=== PATIENT | male | born 1955 | race Caucasian/White ===

== ENCOUNTER 2017-01-03 05:18 | Day surgery (SDC) | payer BC ==
[2016-12-30 10:49] VITALS: BMI 23.0
--- NOTE | 2016-12-30 11:30 | PAT Medication Instructions ---
Service Date Dec 30, 2016. Current Home Medication List Amoxicillin (Amoxil), 2,000 MG PO PRN Metoprolol Tartrate (Lopressor) (Lopressor), 50 MG PO BID Warfarin Sodium (Coumadin), 2 MG PO QPM Medication Instructions For Your Scheduled Surgery Warfarin Sodium (Coumadin), 2 MG PO QPM (hold Coumadin 5 days prior to surgery per Coumadin clinic; bridging with Lovenox (last dose of Lovenox pre op will be in the AM of 01/02/17) Amoxicillin (Amoxil), 2,000 MG PO PRN (take prior to dental procedures) - Take the following medications the morning of surgery with a sip of water: Metoprolol Tartrate (Lopressor) (Lopressor), 50 MG PO BID - Take the following medications as scheduled the night before surgery: Metoprolol Tartrate (Lopressor) (Lopressor), 50 MG PO BID If you have any questions please call us at [phone] or [phone] ( Sara) or [phone]
[~2017-01-03] VITALS: Ht 180.3 cm; Wt 76.1 kg
[~2017-01-03 05:18] MED LIST: AMOX500C3 PO; METO50TA16 PO; WARF2TAB PO
[2017-01-03 05:41] VITALS: BP 139/83; PULSE 57; TEMP 37; O2SAT 100; Ht 180.3 cm; Wt 76.1 kg
[2017-01-03] MEDS ORDERED: CEFAZOLIN 2000 MG/60 ML D5W IV SCH (06:00)
[2017-01-03] MEDS ORDERED: LACTATED RINGER'S 1000ML 1,000 ML IV SCH ×2 (06:00)
[2017-01-03 06:03] LABS: PROTHROMBIN TIME (PATIENT) 10.6 SECONDS (9.0-12.0)
[2017-01-03] MEDS ORDERED: LIDOCAINE HCL 2% 2 ML VIAL (20MG/ML) ONE (06:29)
[2017-01-03] MEDS ORDERED: PROPOFOL IV EMULSION 10 MG/ML 20 ML VIAL IV ONE ×2 (06:29→07:26)
[2017-01-03] MEDS ORDERED: NEOSTIGMINE METHYLSULFATE 5 MG/5 ML SYR ONE (06:29)
[2017-01-03] MEDS ORDERED: ONDANSETRON INJ 2 MG/ML 2 ML VIAL ONE (06:29)
[2017-01-03] MEDS ORDERED: ROCURONIUM BROMIDE 10 MG/ML 5 ML VIAL ONE (06:29)
[2017-01-03] MEDS ORDERED: GLYCOPYRROLATE INJ 0.2 MG/ML VIAL ONE ×2 (06:29→07:50)
[2017-01-03] MEDS ORDERED: DEXAMETHASONE SOD INJ 4 MG/ML VIAL ONE (06:29)
[2017-01-03] MEDS ORDERED: MIDAZOLAM HCL 1 MG/ML 2ML VIAL ONE (06:30)
[2017-01-03] MEDS ORDERED: FENTANYL CITRATE INJ 50 MCG/1 ML 2 ML VIAL ONE (06:30)
--- NOTE | 2017-01-03 06:38 | History & Physical Bridge Note ---
H&P Re-Evaluation Bridge Note: I have examined the patient, reviewed the History & Physical and in the interval since the performance of the History & Physical I have noted the following changes of clinical significance: No changes noted
[2017-01-03] MEDS ORDERED: MoRPHine SULFATE 2 MG/ML CARP IV PRN (06:45)
[2017-01-03] MEDS ORDERED: OXYCODONE/ACETAMINOPHEN 5-325 TAB PO PRN (06:45)
[2017-01-03] MEDS ORDERED: ONDANSETRON INJ 2 MG/ML 2 ML VIAL IV PRN ×2 (06:45→08:00)
[2017-01-03] MEDS ORDERED: BUPIVACAINE/EPINEPHRINE 0.5% MPF 1:200,000 30 ML VIAL ONE (07:02)
--- NOTE | 2017-01-03 07:47 | [facility] Post Operative Brief Note ---
Immediate Operative Summary Operative Date Jan 03, 2017. Pre-Operative Diagnosis Cholelithiasis Post-Operative Diagnosis same as preop Procedure(s) Performed Laparoscopic Cholecystectomy Surgeon Dr. Poe Overnight Babysitter Surgeon(s) Adriana Cook PA-C Estimated Blood Loss 15 ml Findings gallstones Specimens A: Gallbladder Drains none Anesthesia GETA w/marcaine Complication(s) None Disposition Recovery Room / PACU
[2017-01-03] MEDS ORDERED: KETOROLAC TROMETHAMINE 30 MG/ML VIAL ONE (07:50)
[2017-01-03] MEDS ORDERED: OXYC-57 PO (07:54)
--- NOTE | 2017-01-03 07:59 | Discharge Instructions ---
Discharge Instructions Date of Service Jan 03, 2017. Admission Reason for Admission: Cholelithiasis Discharge Discharge Diagnosis / Problem: symptomatic cholelithiasis Discharge Goals Goal(s): Therapeutic intervention Activity Recommendations Activity Limitations: per Instructions/Follow-up section Lifting Limitations: no more than 25 pounds Exercise/Sports Limitations: none, until after follow-up appointment May Resume Sexual Activity: when tolerated Shower/Bathe: tomorrow (remove dressings and replace as needed; leave steris in place) Driving or Machine Use: resume 3 days after discharge (as ) . Instructions / Follow-Up Instructions / Follow-Up follow-up 2 weeks in my office; [phone] Current Hospital Diet Patient's current hospital diet: Discharge Diet Recommended Diet: Regular Diet Procedures Procedures Performed: Laparoscopic Cholecystectomy Pending Studies Studies pending at discharge: no Work Instructions Return To Work: after follow-up Lifting Limitations: no more than 20 pounds Additional Instructions: return to light duty as tolerated Medical Emergencies . Who to Call and When: Medical Emergencies: If at any time you feel your situation is an emergency, please call 911 immediately. . Non-Emergent Contact Non-Emergency issues call your: Primary Care Provider, Surgeon Call Non-Emergent contact if: temperature is above 101.5, your pain is not controlled, your pain is worsening, your pain is unusual for you, your pain is concerning you, wound has increased redness, wound has increased pain, you have any medication questions . "Provider Documentation" section prepared by Peter Poe. VTE Core Measure Inpt VTE Proph given/why not?: SCD's [place] Drug Monitoring Program Search Results: patient reviewed within database
[2017-01-03] MEDS ORDERED: FENTANYL CITRATE INJ 50 MCG/1 ML 2 ML VIAL IV PRN (08:00)
[2017-01-03] MEDS ORDERED: LABETALOL HCL IV 5 MG/ML 20ML IV PRN (08:00)
[2017-01-03] MEDS ORDERED: ATROPINE SULFATE 0.1 MG/ML 5ML SYR IV PRN (08:00)
[2017-01-03] MEDS ORDERED: HYDROmorphone INJ 1 MG/ML SYR IV PRN (08:00)
[2017-01-03] MEDS ORDERED: MEPERIDINE HCL 25 MG/ML CARP IV PRN (08:00)
[2017-01-03] MEDS ORDERED: EpHEDrine SULFATE INJ 50 MG/ML AMP IV PRN (08:00)
--- NOTE | 2017-01-03 08:30 | Anesthesiology Progress Note ---
Anesthesia Post Op Note Date & Time Jan 03, 2017 at 08:28 Vital Signs Pain Intensity: 2 Vital Signs Past 12 Hours Date Time Temp Pulse Resp B/P Pulse Ox O2 Delivery O2 Flow Rate FiO2 01/03/17 08:20 53 20 126/72 100 Mask 10 01/03/17 08:10 56 16 129/68 100 Mask 10 01/03/17 08:03 36.2 62 12 143/73 100 Mask 10 01/03/17 05:41 37 57 18 139/83 100 Room Air Notes Mental Status: alert / awake / arousable, participated in evaluation Pt Amnestic to Procedure: Yes Nausea / Vomiting: adequately controlled Pain: adequately controlled Airway Patency, RR, SpO2: stable & adequate BP & HR: stable & adequate Hydration State: stable & adequate Anesthetic Complications: no major complications apparent
[2017-01-03 08:45] VITALS: BP 133/62; PULSE 45; TEMP 36.7; O2SAT 96
--- NOTE | 2017-01-03 09:03 | OPERATIVE REPORT ---
DATE OF OPERATION: 01/03/2017 PREOPERATIVE DIAGNOSIS: Symptomatic cholelithiasis. POSTOPERATIVE DIAGNOSIS: Same. PROCEDURE PERFORMED: Laparoscopic cholecystectomy. SURGEON: Dhaval Poe MD CASHIER AND SALESPERSON: Adriana Santos PA-C ANESTHESIA: General endotracheal and 0.5% Marcaine with epinephrine local. ESTIMATED BLOOD LOSS: 15 mL. DRAINS: None. COMPLICATIONS: None. SPECIMENS: Gallbladder to pathology. INDICATION FOR PROCEDURE: This is a 61-year-old male who came in with episodic abdominal pain, underwent a workup and was found to have gallstones consistent with symptomatic cholelithiasis. We recommended laparoscopic cholecystectomy. He understands the risks of an open procedure, common duct injury, retained common bile duct stone, postop bile leak, bleeding, and possible wound problems. DESCRIPTION OF PROCEDURE: The patient was taken to the OR and underwent excellent general endotracheal anesthesia. His abdomen was prepped and draped in normal sterile fashion. Transverse supraumbilical incision was made and dissection was taken to identify his anterior fascia. Vicryls placed in either side of midline. The midline was incised sharply. The peritoneal cavity was entered bluntly with a Jackie clamp. A José Miguel trocar was then inserted and good pneumoperitoneum was achieved to about 15 mmHg pressure. An 11 subxiphoid and two 5 lateral ports were placed in normal fashion. The patient was placed in head up and rolled to the left. Gallbladder was identified, it was intrahepatic, and it had somewhat enlarged gallbladder. There was some opacity of the gallbladder consistent with previous attacks. The fundus was then grasped and retracted superiorly. The neck was grasped and retracted laterally. The peritoneal attachments and some fatty tissue were taken down at the cystic duct and cystic artery and these were skeletonized. A medial and lateral window was created between the gallbladder and gallbladder fossa showing these structures going straight to the gallbladder. The cystic plate was also exposed. Once this was done, 3 clips were placed distally on the cystic duct, 1 proximally and the cystic duct was transected. Three clips were also placed proximally in the cystic artery, 1 distally on the cystic artery and cystic artery was transected. Electrocautery hook was then used to remove the gallbladder from gallbladder fossa. The gallbladder was sent for pathologic evaluation. The pneumoperitoneum was reestablished. Gallbladder fossa was checked. There were some small areas which were bleeding. These were cauterized. This was then irrigated out and suctioned clear. There was no further bleeding on the gallbladder fossa. The clips were well placed in the duct and artery. The ports removed and pneumoperitoneum was decompressed. 0 Vicryl was used to close the fascial defect. A 0.5% Marcaine with epinephrine local was used to create a local field block. Interrupted Vicryl was used to close the deep subQ space and interrupted Vicryl was used to close the skin. Steri-Strips and benzoin were used to reinforce the incision. Sterile dressings were applied. The patient tolerated the procedure well without any complications, sent to post-recovery for a period of observation and be discharged home once he meets criteria. I attest to the content of the Intraoperative Record and any orders documented therein. Any exceptio ns are noted below.
[2017-01-03 09:15] VITALS: BP 140/73; PULSE 48; TEMP 36.7; O2SAT 100
[2017-01-03 09:50] VITALS: BP 137/68; PULSE 48; TEMP 36.7; O2SAT 100
[2017-01-04] MEDS ORDERED: CEFAZOLIN 2000 MG/60 ML D5W IV SCH (06:00)
[2017-04-18] MEDS ORDERED: FENO54TA PO (09:04)
[2017-04-27] MEDS ORDERED: ENOX80IN SQ (12:12)
== END 2017-01-03 10:00 | disposition home or self-care (01) ==
LOC: C.ACU 05:18
PROVIDERS: ATTEND Surgery
DX: K80.10 Calculus of gallbladder with chronic cholecystitis without obstruction (principal); Z86.010 Personal history of colon polyps; Z86.718 Personal history of other venous thrombosis and embolism; Z86.73 Personal history of transient ischemic attack (TIA), and cerebral infarction without residual deficits; Z90.49 Acquired absence of other specified parts of digestive tract; Z95.2 Presence of prosthetic heart valve; Z79.01 Long term (current) use of anticoagulants; Z87.891 Personal history of nicotine dependence; Z82.49 Family history of ischemic heart disease and other diseases of the circulatory system

== ENCOUNTER → 2017-02-21 | Day surgery (SDC) | payer BC ==
[2017-02-17 14:35] VITALS: Ht 180.3 cm; Wt 77.7 kg
[~2017-02-21] VITALS: Ht 180.3 cm; Wt 77.7 kg
[~2017-02-21] MED LIST changes: +ACETAMINOPHEN 325 MG TAB PO PRN; -AMOX500C3 PO; +ATROPINE SULFATE 0.1 MG/ML 5ML SYR IV PRN; +ATROPINE SULFATE 1% OP OINT PER APPLICATION CHARGE ONE; +BUPIVACAINE HCL 0.75% 10 ML AMP/VIAL ONE; +CEFAZOLIN SOD 1 GM VIAL ONE; +DEXAMETHASONE SOD INJ 4 MG/ML VIAL ONE; +ENOX80IN SQ; +EpHEDrine SULFATE INJ 50 MG/ML AMP IV PRN; +EpINEphrine INJ 1MG/ML AMP 1 MG/ML AMP ONE; +FENO54TA PO; +HYALURONIDASE HUMAN 150 UNIT/ML INJ ONE; +INDOCYANINE GREEN 25 MG/10 ML ONE; +LACTATED RINGER'S 1000ML 500 ML IV SCH; +LIDOCAINE HCL 2% 2 ML VIAL (20MG/ML) ONE; +LIDOCAINE MPF 4% INJ INJ ONE; +MIDAZOLAM HCL 1 MG/ML 2ML VIAL ONE; +NEOMYCIN/POLYMYX/DEXAMETH OP OINT PER APP CHARGE ONE; +OCUCOAT 1 ML SOLN IO ONE; +PROPARACAINE 0.5% OP SOLN PER DROP CHARGE OPL SCH; +PROPOFOL IV EMULSION 10 MG/ML 20 ML VIAL IV ONE; +TIMOLOL MALEATE 0.5% OP SOLN PER DROP CHARGE ONE; +TRIAMCINOLONE ACETONIDE OPHTH 40 MG/ML VIAL STERILE IO ONE
[2017-02-21] MEDS: PHENYLEPHRINE HCL 2.5% OP SOLN PER DROP CHARGE OPL SCH ×2 (07:12→07:17)
[2017-02-21] MEDS: TROPICAMIDE 1% OP SOLN PER DROP CHARGE OPL SCH ×2 (07:13→07:18)
[2017-02-21 07:17] LABS: INR 1.9 (0.9-1.1); PARTIAL THROMBOPLASTIN RATIO 1.4; PROTHROMBIN TIME (PATIENT) 20.5 SECONDS (9.0-12.0)
--- NOTE | 2017-02-21 07:56 | History & Physical Bridge - [place] ---
H&P Re-Evaluation Bridge Note: Pt has an epiretinal membrane left eye and is here for vitrectomy left eye. I have examined the patient, reviewed the History & Physical and in the interval since the performance of the History & Physical I have noted the following changes of clinical significance: No changes noted
[2017-02-21 08:52] VITALS: TEMP 36.7
--- NOTE | 2017-02-21 08:52 | [facility] Operative Report ---
Operative Report Date of Service Feb 21, 2017. Operative Report PREOPERATIVE DIAGNOSIS: Epiretinal membrane, left eye. ICD10: H35.372 POSTOPERATIVE DIAGNOSIS: same. PROCEDURE: 1. Pars plana vitrectomy, 23 gauge. 2. Membrane peeling of the internal limiting membrane and overlying epiretinal membrane. 3. Intravitreal Triescence 4mg. All to the left eye. CPT CODE: 82145 SURGEON: Avni Sultana D.O. COMPLICATIONS: None. ESTIMATED BLOOD LOSS: None. SPECIMENS: None. ANESTHESIA: Retrobulbar block and MAC. INDICATIONS FOR PROCEDURE: The patient has an epiretinal membrane that is visually significant. Vitrectomy surgery is indicated to decrease risk of vision loss and potentially improve vision. CONSENT: The risks, benefits and alternatives were discussed with the patient including but not limited to decreased visual acuity, failure to achieve desired results, loss of the eye, infection, pain, glaucoma, lens changes, retinal tears, retinal detachment, the need for more procedures, drooping of the eyelid, blindness, and double vision. The patient is aware of risks and consents to the surgery. Consent is signed and on the chart. OPERATION AND FINDINGS: The patient was brought to the operating room where the patient was identified by name, date, and medical record number. The surgical site was confirmed with the informed written consent. The patient was sedated by the anesthesiology team after which a 50:50 mixture of 4% lidocaine and 0.75% bupivacaine with hyaluronidase was administered in a standard retrobulbar fashion. A total of 4 ml was administered without difficulty. The patient was then prepped and draped in the usual sterile manner for retinal surgery. A wire lid speculum was placed and an Gilles 23-gauge trocar cannula system was employed. The inferior temporal trocar cannula was first placed in an angled fashion 3.75mm posterior to the surgical limbus and the infusion cannula was inserted into this cannula after which the intravitreal position was verified prior to turning the infusion on. Two more trocar cannulas were then inserted in an angled fashion, one in the superior temporal, and one in the superior nasal quadrant both 3.75mm posterior to the surgical limbus. A light pipe and vitrector were then introduced into the eye and the BIOM wide angle viewing system was brought into place. Standard core vitrectomy was performed the vitreous was insured to be totally detached from the posterior pole with the aid of the vitrector. Next 0.05ml of indocyanine green was placed over the macular surface to stain the internal limiting membrane. This was washed from the eye after 10 seconds. At this point a flat contact lens was placed on the surface of the eye and a flex scraper and ILM forceps were used to gently peel the internal limiting membrane and overlying epiretinal membrane off of the macular surface without difficulty. At this point scleral depression was performed for 360 degrees and no retinal tears or detachments were noted. Intravitreal Triescence 4mg was injected. The trocar cannulas were then removed and found to be water tight. The intraocular pressure was found to be within normal limits by palpation and subconjunctival injections of Kefzol and dexamethasone were administered inferiorly and superiorly. The wire lid speculum was removed. Maxitrol and timolol were applied to the surface of the eye. A light patch and shield were taped over the surface of the eye and the patient left the Operating Room in stable condition having tolerated the procedure well. DISPOSITION: The patient has an appointment the following morning in the Ophthalmology Clinic. The patient is to call immediately if there are any problems overnight. I attest to the content of the Intraoperative Record and any orders documented therein. Any exceptions are noted below.
--- NOTE | 2017-02-21 08:53 | Discharge Instructions-SurgCtr ---
Discharge Instructions Date of Service Feb 21, 2017. Visit Reason for Visit: Left Eye Epiretinal Membrane Discharge Discharge Diagnosis / Problem: same Discharge Goals Goal(s): Improve function Activity Recommendations Activity Limitations: per Instructions/Follow-up section Anesthesia . Post Anesthesia Instructions: If you have had General Anesthesia or IV Sedation: * Do not drive today. * Resume driving when surgeon permits. * Do not make important decisions or sign legal documents today. * Call surgeon for: 1. Temperature elevations greater than 101 degrees F. 2. Uncontrollable pain. 3. Excessive bleeding. 4. Persistent nausea and vomiting. 5. Medication intolerance (nausea, vomiting or rash). * For nausea and vomiting use only clear liquids such as: tea, soda, bouillon until nausea subsides, then gradually increase diet as tolerated. * If you have any concerns or questions, call your surgeon's office. If physician is unavailable and it is an emergency, call 911 or go to the nearest emergency room. . Instructions / Follow-Up Instructions / Follow-Up * May take Tylenol if needed for discomfort. * Do NOT remove eye shield. * NO straining, heavy lifting (>15 pounds) or bending below waist. * Avoid getting water or soap directly into operative eye. * Do NOT rub eye. If you experience increasing eye pain not relieved by medication, please contact us immediately at [phone]. If you are unable to reach someone at the above number, call [phone] and ask to speak with the EYE DOCTOR AIR DEFENSE SPECIALIST. Inform them that you are a Dr. Sultana patient who had recent surgery. Diet Recommendations Home Diet: resume previous diet Procedures Procedures Performed: Left Eye Vitrectomy 23 Gauge Pending Studies Studies pending at discharge: no Medical Emergencies . Who to Call and When: Medical Emergencies: If at any time you feel your situation is an emergency, please call 911 immediately. . Non-Emergent Contact Non-Emergency issues call your: Ict Security Specialist . . "Provider Documentation" section prepared by Avni Sultana. .
--- NOTE | 2017-02-21 09:04 | Anesthesia Progress Nt - [facility] ---
Anesthesia Post Op Note Date & Time Feb 21, 2017 at 09:04 Vital Signs Pain Intensity: 0 Vital Signs Past 12 Hours Date Time Temp Pulse Resp B/P (MAP) Pulse Ox O2 Delivery O2 Flow Rate FiO2 02/21/17 08:52 36.7 62 16 147/82 (103) 98 Room Air 02/21/17 06:45 36.7 58 16 132/88 (103) 99 Room Air Notes Mental Status: alert / awake / arousable, participated in evaluation Pt Amnestic to Procedure: Yes Nausea / Vomiting: adequately controlled Pain: adequately controlled Airway Patency, RR, SpO2: stable & adequate BP & HR: stable & adequate Hydration State: stable & adequate Anesthetic Complications: no major complications apparent
[2017-02-21 09:09] VITALS: BP 151/87; PULSE 50; O2SAT 100
== END | disposition home or self-care (01) ==
LOC: X.SURG 06:28
PROVIDERS: ATTEND Ophthalmology
DX: H35.372 Puckering of macula, left eye (principal); Z90.89 Acquired absence of other organs; Z98.890 Other specified postprocedural states; Z95.2 Presence of prosthetic heart valve; Z90.49 Acquired absence of other specified parts of digestive tract; Z98.49 Cataract extraction status, unspecified eye; I10 Essential (primary) hypertension; Z86.73 Personal history of transient ischemic attack (TIA), and cerebral infarction without residual deficits

== ENCOUNTER → 2017-04-27 | Day surgery (SDC) | payer BC ==
[2017-04-18 09:06] VITALS: Ht 180.3 cm; Wt 77.7 kg
[~2017-04-27] VITALS: Ht 180.3 cm; Wt 77.7 kg
[~2017-04-27] MED LIST changes: -ACETAMINOPHEN 325 MG TAB PO PRN; -ATROPINE SULFATE 0.1 MG/ML 5ML SYR IV PRN; -ATROPINE SULFATE 1% OP OINT PER APPLICATION CHARGE ONE; -BUPIVACAINE HCL 0.75% 10 ML AMP/VIAL ONE; -CEFAZOLIN SOD 1 GM VIAL ONE; -DEXAMETHASONE SOD INJ 4 MG/ML VIAL ONE; -EpHEDrine SULFATE INJ 50 MG/ML AMP IV PRN; -EpINEphrine INJ 1MG/ML AMP 1 MG/ML AMP ONE; -HYALURONIDASE HUMAN 150 UNIT/ML INJ ONE; -INDOCYANINE GREEN 25 MG/10 ML ONE; -LACTATED RINGER'S 1000ML 500 ML IV SCH; -LIDOCAINE MPF 4% INJ INJ ONE; -MIDAZOLAM HCL 1 MG/ML 2ML VIAL ONE; -NEOMYCIN/POLYMYX/DEXAMETH OP OINT PER APP CHARGE ONE; -OCUCOAT 1 ML SOLN IO ONE; -PROPARACAINE 0.5% OP SOLN PER DROP CHARGE OPL SCH; +SODIUM CHLORIDE 0.9% 500ML 500 ML IV ONE; -TIMOLOL MALEATE 0.5% OP SOLN PER DROP CHARGE ONE; -TRIAMCINOLONE ACETONIDE OPHTH 40 MG/ML VIAL STERILE IO ONE
--- NOTE | 2017-04-27 12:24 | Endo History and Physical ---
History & Physical Date of Service: Apr 27, 2017. Chief Complaint: diarrhea ,black stools Referring Physician: Dr.Mary Wan History of Present Illness Persistent diarrhea, history of black (? melanotic) stool. Past Medical History High Cholesterol, Hypertension, Thrombophlebitis, Kidney Disease Past Surgical History Hx Cardiac Surgery: Yes (CARDIAC CATH-NO STENTS, AVR) Hx Abdominal Surgery: Yes (APPY, HERMAN) Hx Post-Op Nausea and Vomiting: No Hx Cancer Surgery: No Hx Thoracic Surgery: No Hx Orthopedic: No Hx Urinary Tract Surgery: No Family History None Social History Smoking Status: Former Smoker Hx Substance Use: No Hx Alcohol Use: Yes (1-2 DRINKS DAILY) Allergies Coded Allergies: No Known Allergies (Verified , 04/27/17) Current Medications Reported Home Medications Medications Dose Route/Sig Max Daily Dose Days Date Category Dose Instructions Lovenox (Enoxaparin Sodium) 80 Mg/0.8 Ml Inj 80 Mg SQ Q12H 04/27/17 Reported Tricor (Fenofibrate) 54 Mg Tab 54 Mg PO QAM 04/18/17 Reported Lopressor (Metoprolol Tartrate) 50 Mg Tab 50 Mg PO BID 12/30/16 Reported Coumadin (Warfarin Sodium) 2 Mg Tab 2 Mg PO DIRECTED 06/03/15 Reported WILL FOLLOW WITH CLINIC Vital Signs Weight (Kilograms): 77.73 Height (Feet): 5 Height (Inches): 11 Date Time Temp Pulse Resp B/P (MAP) Pulse Ox O2 Delivery O2 Flow Rate FiO2 04/27/17 12:18 36.5 59 20 146/82 (103) 100 Room Air Physical Exam General Appearance: WD/WN, no apparent distress Respiratory/Chest: Auscultation: breath sounds normal, no wheezing Cardiovascular: Heart Auscultation: RRR, no murmurs Abdomen: Inspection & Palpation: soft, no tenderness, guarding & rebound Assessment and Plan EGD and colonoscopy today
--- NOTE | 2017-04-27 13:30 | GI REPORT ---
Procedure Date: 04/27/2017 12:34 PM Procedure: Upper GI endoscopy Indications: Melena, Diarrhea Medicines: Propofol per Anesthesia Complications: No immediate complications. Estimated blood loss: None. Estimated Blood Loss: Estimated blood loss: none. Procedure: Pre-Anesthesia Assessment: - Prior to the procedure, a History and Physical was performed, and patient medications, allergies and sensitivities were reviewed. The patient's tolerance of previous anesthesia was reviewed. - ASA Grade Assessment: II - A patient with mild systemic disease. After obtaining informed consent, the endoscope was passed under direct vision. Throughout the procedure, the patient's blood pressure, pulse, and oxygen saturations were monitored continuously. The scope was introduced through the mouth, and advanced to the third part of the duodenum. Small bowel enteroscopy was deemed necessary. The upper GI endoscopy was accomplished with ease. The patient tolerated the procedure well. Findings: The upper third of the esophagus, middle third of the esophagus and lower third of the esophagus were normal. The Z-line was regular and was found 40 cm from the incisors. The entire examined stomach was normal. Biopsies were taken with a cold forceps for Helicobacter pylori testing. The examined duodenum was normal. Biopsies for histology were taken with a cold forceps for evaluation of celiac disease. Verification of patient identification for the specimens was done by the physician and nurse using the patient's name, date and medical record number. Impression: - Normal upper third of esophagus, middle third of esophagus and lower third of esophagus. - Z-line regular, 40 cm from the incisors. - Normal stomach. Biopsied. - Normal examined duodenum. Biopsied. Recommendation: - Await pathology results. - Perform a colonoscopy today. Valente Santos M.D. Valente Santos MD 04/27/2017 1:30:33 PM This report has been signed electronically. Note Initiated On: 04/27/2017 12:34 PM I attest to the content of the Intraoperative Record and orders documented therein, exceptions below
--- NOTE | 2017-04-27 13:37 | GI REPORT ---
Procedure Date: 04/27/2017 12:37 PM Procedure: Colonoscopy Indications: Chronic diarrhea Medicines: Propofol per Anesthesia Complications: No immediate complications. Estimated blood loss: None. Estimated Blood Loss: Estimated blood loss: none. Procedure: Pre-Anesthesia Assessment: - Prior to the procedure, a History and Physical was performed, and patient medications, allergies and sensitivities were reviewed. The patient's tolerance of previous anesthesia was reviewed. - ASA Grade Assessment: II - A patient with mild systemic disease. After I obtained informed consent, the scope was passed under direct vision. Throughout the procedure, the patient's blood pressure, pulse, and oxygen saturations were monitored continuously. The scope was introduced through the anus and advanced to the terminal ileum, with identification of the appendiceal orifice and IC valve. The colonoscopy was performed with ease. The patient tolerated the procedure well. The quality of the bowel preparation was excellent. Findings: Two sessile polyps were found in the transverse colon. The polyps were 1 to 2 mm in size. These polyps were removed with a cold snare. Resection and retrieval were complete. Normal mucosa was found in the entire colon. Biopsies for histology were taken with a cold forceps from the entire colon for evaluation of microscopic colitis. Fluid aspiration was performed through the scope suction channel. The amount of fluid collected was 10 mL. Sample(s) were sent for bacterial cultures, Clostridium difficile and ova and parasites. Verification of patient identification for the specimens was done by the physician and nurse using the patient's name, date and medical record number. Impression: - Two 1 to 2 mm polyps in the transverse colon, removed with a cold snare. Resected and retrieved. - Normal mucosa in the entire examined colon. Biopsied. Fluid aspiration performed. Recommendation: - Await pathology results. - Discharge patient to home (with escort). Valente Santos M.D. Valente Santos MD 04/27/2017 1:36:41 PM This report has been signed electronically. Note Initiated On: 04/27/2017 12:37 PM I attest to the content of the Intraoperative Record and orders documented therein, exceptions below
[2017-04-27 13:59] VITALS: BP 141/85; PULSE 62; O2SAT 94
--- NOTE | 2017-04-27 14:00 | Discharge Instructions ---
Endoscopy Patient Instructions Date / Procedure(s) Performed Apr 27, 2017. Colonoscopy, EGD Allergy Information Coded Allergies: No Known Allergies (Verified , 04/27/17) Discharge Date / Findings Apr 27, 2017. Normal upper endoscopy. Two small polyps on colonoscopy. Random biopsies obtained. Medication Instructions Stopped Medication(s): stopped Coumadin on 1999,bridged with Lovenox,last dose yesterday 0800 Restart Stopped Medication(s): Restart all medications today Provider Instructions Activity Restrictions - No exercising or heavy lifting for 24 hours. - Do not drink alcohol the day of the procedure. - Do not drive a car or operate machinery until the day after the procedure. - Do not make any important decisions or sign important papers in 24 hours after the procedure. Following Day: - Return to full activity which may include returning to work/school. Diet Start your diet with liquids and light foods (jello, soup, juice, toast). Then eat your usual diet if not nauseated. Treatment For Common After Affects For mild abdominal pain, bloating, or excessive gas: - Rest - Eat lightly - Lie on right side Follow-Up Information Follow-up with Dr.Mary Wan as scheduled Anesthesia Information What You Should Know You have had a procedure that required some medicine to reduce anxiety and discomfort. This treatment is called moderate sedation. After receiving the treatment, you may be sleepy, but you will be able to breathe on your own. The effects of the treatment may last for several hours. Follow these instructions along with Activity/Diet recommendations noted above: * Do NOT do anything where dizziness or clumsiness would be dangerous. * Rest quietly at home today, then you can be up and about tomorrow. * Have a responsible person stay with you the rest of today. * You may have had an I.V. today. If so, you may take the dressing off later today. Recommendations Call your doctor if: * Trouble breathing * Continuous vomiting for more than 24 hours * Temperature above 101 degrees * Severe abdominal pain or bloating * Pain not relieved by pain medicine ordered * There is increased drainage or redness from any incision * A large amount of rectal bleeding greater than 2-3 tablespoons. (If you had a polyp/s removed or have hemorrhoids, a small amount of blood - from the rectum is to be expected.) * You have any unanswered questions or concerns. IN THE EVENT OF A SERIOUS EMERGENCY, GO TO THE NEAREST EMERGENCY ROOM Your discharge instructions were prepared by provider Valente Santos. Patient Instructions Signature Page Main Miranda Patient (or Guardian) Signature/Date: I have read and understand the instructions given to me by my caregivers. Caregiver/RN/Doctor Signature/Date: The above-named patient and/or guardian has received patient instructions on this date. + Original Patient Signature Page (only) stays with chart. Please make copy for patient.
--- NOTE | 2017-04-27 14:03 | Anesthesiology Progress Note ---
Anesthesia Post Op Note Date & Time Apr 27, 2017 at 14:03 Vital Signs Pain Intensity: 0 Vital Signs Past 12 Hours Date Time Temp Pulse Resp B/P (MAP) Pulse Ox O2 Delivery O2 Flow Rate FiO2 04/27/17 12:18 36.5 59 20 146/82 (103) 100 Room Air Notes Mental Status: alert / awake / arousable, participated in evaluation Pt Amnestic to Procedure: Yes Nausea / Vomiting: adequately controlled Pain: adequately controlled Airway Patency, RR, SpO2: stable & adequate BP & HR: stable & adequate Hydration State: stable & adequate Anesthetic Complications: no major complications apparent
--- NOTE | 2017-04-27 15:00 | Discharge Instructions ---
Endoscopy Patient Instructions Date / Procedure(s) Performed Apr 27, 2017. Colonoscopy, EGD Allergy Information Coded Allergies: No Known Allergies (Verified , 04/27/17) Discharge Date / Findings Apr 27, 2017. Diverticulosis. Duodenal biopsies pending. Medication Instructions Stopped Medication(s): stopped Coumadin on 1999,bridged with Lovenox,last dose yesterday 0800 Restart Stopped Medication(s): Restart all medications today. Provider Instructions Activity Restrictions - No exercising or heavy lifting for 24 hours. - Do not drink alcohol the day of the procedure. - Do not drive a car or operate machinery until the day after the procedure. - Do not make any important decisions or sign important papers in 24 hours after the procedure. Following Day: - Return to full activity which may include returning to work/school. Diet Start your diet with liquids and light foods (jello, soup, juice, toast). Then eat your usual diet if not nauseated. Treatment For Common After Affects For mild abdominal pain, bloating, or excessive gas: - Rest - Eat lightly - Lie on right side Follow-Up Information Follow-up with Dr.Mary Wan as scheduled Anesthesia Information What You Should Know You have had a procedure that required some medicine to reduce anxiety and discomfort. This treatment is called moderate sedation. After receiving the treatment, you may be sleepy, but you will be able to breathe on your own. The effects of the treatment may last for several hours. Follow these instructions along with Activity/Diet recommendations noted above: * Do NOT do anything where dizziness or clumsiness would be dangerous. * Rest quietly at home today, then you can be up and about tomorrow. * Have a responsible person stay with you the rest of today. * You may have had an I.V. today. If so, you may take the dressing off later today. Recommendations Call your doctor if: * Trouble breathing * Continuous vomiting for more than 24 hours * Temperature above 101 degrees * Severe abdominal pain or bloating * Pain not relieved by pain medicine ordered * There is increased drainage or redness from any incision * A large amount of rectal bleeding greater than 2-3 tablespoons. (If you had a polyp/s removed or have hemorrhoids, a small amount of blood - from the rectum is to be expected.) * You have any unanswered questions or concerns. IN THE EVENT OF A SERIOUS EMERGENCY, GO TO THE NEAREST EMERGENCY ROOM Your discharge instructions were prepared by provider Valente Santos. Patient Instructions Signature Page Main Miranda Patient (or Guardian) Signature/Date: I have read and understand the instructions given to me by my caregivers. Caregiver/RN/Doctor Signature/Date: The above-named patient and/or guardian has received patient instructions on this date. + Original Patient Signature Page (only) stays with chart. Please make copy for patient.
[2017-04-29 18:30] LABS: CRYPTOSPORIDIUM AG TC 37213 NOT DETECTED (NOT DETECTED); O&P GIARDIA AG NOT DETECTED (NOT DETECTED)
== END | disposition home or self-care (01) ==
LOC: C.GI 11:58
PROVIDERS: ATTEND Internal Medicine Gastroenterology
DX: D12.3 Benign neoplasm of transverse colon (principal); K29.50 Unspecified chronic gastritis without bleeding; D52.9 Folate deficiency anemia, unspecified; I10 Essential (primary) hypertension; E78.00 Pure hypercholesterolemia, unspecified; N28.9 Disorder of kidney and ureter, unspecified; Z87.891 Personal history of nicotine dependence; Z95.2 Presence of prosthetic heart valve; Z79.01 Long term (current) use of anticoagulants; Z79.899 Other long term (current) drug therapy

== ENCOUNTER → 2018-01-16 | Outpatient (CLI) | payer BC ==
[~2018-01-16] MED LIST changes: -LIDOCAINE HCL 2% 2 ML VIAL (20MG/ML) ONE; -PROPOFOL IV EMULSION 10 MG/ML 20 ML VIAL IV ONE; -SODIUM CHLORIDE 0.9% 500ML 500 ML IV ONE
--- NOTE | 2018-01-17 06:36 | SPLIT NIGHT TECHNICIAN REPORT ---
[facility] Split Night Polysomnogram - Mail Superintendent Report Study date: 01/16/2018 Referring Physician: Raleigh Oconnor PA-C Name: WALT SUMMERS Mail Superintendent: MAGNUS Woodruff. Date of : 1955 Height: 62 years, Height 5' 11" Sex: Male Weight: 175 lbs Age: 62 BMI: Medications: 24.4 ATORVASTATIN 40 MG, FENOFIBRATE 54 MG, LOSARTAN-HCTZ 50-12.5 MG, METOPROLOL 50 MG, WARFARIN 2 MG, AMOXICILLIN 500 MG, ENOXAPARIN 80 MG/0.8 ML INJ, TRANSDERM SCOP 1.5 MG Patient History 62 yr-old male here for a baseline/split study. He has a history of HTN, snoring, and witnessed apneas. His Kent scale is 3. The test was started on room air. ETCO2 testing was not utilized during this study. Room 3 Parameters Monitored NPSG: E1-M2, E2-M1, Fp1-M2, Fp2-M1, F3-M2, F4-M2, F4-M1, C3-M2, C4-M2, C4-M1, O1-M2, O2-M2, O2-M1, T3-M2, T4-M1, P3-M2, P4-M1, CHIN1, CHIN2, HR, EKG, Legs, PFLOW, SNOR, FLOW, CFLOW, Tidal Volume, THOR, ABDO, SpO2, PLTH, CPRESS, ETCO2 Wave, ETCO2, pH SLEEP SUMMARY DATA DIAGNOSTIC TREATMENT Lights Out: 10:52:36 PM 1:13:36 AM Lights On: 1:03:06 AM 5:32:06 AM Total Recording Time (TRT): 130.5 min. 258.5 min. Total Sleep Time (TST): 105.5 min. 246.0 min. NREM Time: 90.5 min. 192.5 min. REM Time: 15.0 min. 53.5 min. Sleep Period Time (SPT): 110.0 min. 250.5 min. Sleep Efficiency (SE): 81 % 95 % Sleep Latency: 20.5 min. 8.0 min. Arousal Index: 41.5 13.4 PAP Treatment Levels: 4, 5 * Optimal Pressure(s) SLEEP STAGING DATA DIAGNOSTIC TREATMENT Duration (min) TST % Duration (min) TST % Stage Wake: 25.0 min. -- 12.5 min. -- WASO: 4.5 min. -- 4.5 min. -- NREM: 90.5 min. 86 % 192.5 min. 78 % Stage N1: 27.0 min. 26 % 22.5 min. 9 % Stage N2: 62.0 min. 59 % 135.5 min. 55 % Stage N3: 1.5 min. 1 % 34.5 min. 14 % REM: 15.0 min. 14 % 53.5 min. 22 % POSITIONAL DATA Event Count Index Event Count Index Supine: 86 46 6 1.0 Supine NREM: 71 44.4 3 0.6 Supine REM: 15 56 3 2 Non-Supine: N/A N/A N/A N/A Non-Supine NREM: N/A N/A N/A N/A Non-Supine REM: N/A N/A N/A N/A AROUSAL SUMMARY DATA: Event Count Index Event Count Index Apnea Arousals: 3 2.3 0 0.0 Hypopnea Arousals: 37 21.0 0 0.0 Snore Arousals: 1 0.6 7 1.7 PLM Arousals: 16 9.1 15 3.7 Non-Specific Arousals: 8 4.5 25 6.1 Total Arousals: 73 41.5 55 13.4 MYOCLONUS (PLM) Event Count Index Event Count Index PLM: 84 47.8 112 27.3 PLM AROUSAL: 16 9.1 15 3.7 PLM W/O AROUSAL 84 47.8 97 23.7 PLM W/RESP EVENT 8 0.0 1 0.0 MYOCLONUS (PLM) Event Count Index Event Count Index LM: 3 54.0 35 8.5 LM AROUSAL: 3 1.7 6 1.5 LM W/O AROUSAL LM W/RESP EVENT LM NON SPECIFIC 103 58.6 124 30.2 HEART RATE DATA DIAGNOSTIC TREATMENT Sleep (bpm): 62 59 REM (bpm): 90 93 NREM (bpm): 90 93 Tachycardia Count: 0 0 Tachycardia Duration: 0.00 0 Bradycardia Count: 0 0 Bradycardia Duration: 0.00 0 DIAGNOSTIC PORTION TREATMENT PORTION RESPIRATORY DATA Event Count Index Event Count Index AHI: -- 46.1 -- 1.0 RDI: -- 48.9 -- 1 Obstructive Apnea: 4 2.3 0 0.0 Central Apnea: 0 0.0 0 0.0 Mixed Apnea: 0 0.0 0 0.0 Hypopnea: 77 43.8 4 1.0 RERA: 5 2.8 2 0.5 Total Apneas: 4 2.3 0 0.0 RESPIRATORY DATA REM NREM SLEEP REM NREM SLEEP Supine Position: Obstructive Apneas: 2 2 4 0 0 0 Central Apneas: 0 0 0 0 0 0 Mixed Apneas: 0 0 0 0 0 0 Hypopneas: 12 65 77 2 2 4 RERA 1 4 5 1 1 2 Total Supine Events: 15 71 86 3 3 6 Supine AHI: 56 44.4 46 2 0.6 1.0 Supine RDI: 60.0 47.1 48.9 3.4 0.9 1.5 REM NREM SLEEP REM NREM SLEEP Non-Supine Position: Obstructive Apneas: N/A N/A N/A N/A N/A N/A Central Apneas: N/A N/A N/A N/A N/A N/A Mixed Apneas: N/A N/A N/A N/A N/A N/A Hypopneas: N/A N/A N/A N/A N/A N/A RERA N/A N/A N/A N/A N/A N/A Total Supine Events: N/A N/A N/A N/A N/A N/A Supine AHI: N/A N/A N/A N/A N/A N/A Supine RDI: N/A N/A N/A N/A N/A N/A OXYGEN DESTAURATION DATA: Event Count Index Event Count Index REM Desaturations: 11 44.0 2 2.2 NREM Desaturations: 67 44.4 9 2.8 SNORE DATA DIAGNOSTIC TREATMENT Snore Time: 19.1 1:21:36 AM Snore TST%: 9 1 Snore Arousal Count: 1 7 Snore Arousal Index: 0.6 1.7 Desaturation Event Summary: Minimum %SpO2 Event Count Mean/Min/Max Duration(sec.) Desaturation Index % Time In Bed > 90 91 29.1 / 7.8 / 58.3 17.1 82.0 86 - 90 16 25.1 / 10.3 / 45.0 15.8 15.6 81 - 85 0 N/A 0.0 2.3 76 - 80 0 N/A 0.0 0.0 71 - 75 0 N/A 0.0 0.0 66 - 70 0 N/A 0.0 0.0 61 - 65 0 N/A 0.0 0.0 56 - 60 0 N/A 0.0 0.0 51 - 55 0 N/A 0.0 0.0 < 50 0 N/A 0.0 0.0 OXYGEN SATURATION DATA DIAGNOSTIC TREATMENT SpO2 Mean Sleep: 90 % 93 % SpO2 Mean REM: 90 % 93 % SpO2 Mean NREM: 90 % 93 % SpO2 Minimum Sleep: 80 % 90 % SpO2 Minimum REM: 80 % 90 % SpO2 Minimum NREM: 82 % 90 % Time Below 90% (TST): 49.3 0.0 Time Below 88% (TST): 29.4 0.0 Total REM NREM Awake <50% 0.0 min. 0.0 min. 0.0 min. 0.0 min. 51 - 60% 0.0 min. 0.0 min. 0.0 min. 0.0 min. 61 - 70% 0.0 min. 0.0 min. 0.0 min. 0.0 min. 71 - 80% 0.1 min. 0.1 min. 0.0 min. 0.0 min. 81 - 90% 69.8 min. 9.6 min. 54.0 min. 6.2 min. 91 - 100% 319.1 min. 58.8 min. 229.0 min. 31.3 min. Average 92 92 92 93 Minimum SpO2 80 80 82 87 Desaturation Event Index 15.0 11.4 16.1 14.4 # Desat. Events below 89% 58 10 48 N/A Time(%) with Saturation below 89% 10.6 1.7 8.7 0.2 Time(min.) with Saturation below 89% 41.4 6.8 33.6 1.0 Recording Mail Superintendent Comments: Mr. Summers slept only in the supine position. No cardiac arrhythmias were noted. PLMs were noted. No bruxism noted. Snoring was noted and scored as a 2 on a scale of 1 through 5. (0=no snoring, 5=snoring loud enough to be heard through a closed door or down the salguero way). At 1:13 am, he met specific Split-Night criteria during the diagnostic portion of this study. CPAP was initiated at +4 CMH2O and up-titrated to a level of +5 CMH2O, Cflex 2 which nearly eliminated all respiratory events and snoring. A Mirage FX Soft edge nasal mask size standard from [employer] was used during titration. He did not wake up to use the restroom during the night. Mr. Summers stated that he slept better than usual. The final report will be interpreted and signed by a sleep physician. The completed physician report will then be placed in the patient medical record. Therapy Event: Therapy (cm H20) 0 4 5 Total Time at Pressure (min.) 130.5 142.8 115.7 TST at Pressure (min.) 105.5 132.8 113.2 # Periods 1 1 1 Sleep Onset (min.) 20.5 8.0 0.0 REM Onset (min.) 98.0 69.0 13.2 Sleep Efficiency % 80 93 97 Wakefulness (%) 19.2 7.0 2.2 Wakefulness (min.) 25.0 10.0 2.5 NREM 1 (%) 20.7 9.8 7.3 NREM 1 (min.) 27.0 14.0 8.5 NREM 2 (%) 47.5 45.9 60.5 NREM 2 (min.) 62.0 65.5 70.0 NREM 3 (%) 1.1 23.3 1.0 NREM 3 (min.) 1.5 33.3 1.2 REM (%) 11.5 14.0 29.0 REM (min.) 15.0 20.0 33.5 # Arousals 73 30 25 Arousal Index 41.5 13.6 13.3 # Snore 708 17 19 Snore Index 402.7 7.7 10.1 AHI 46.1 1.4 0.5 AHI Supine 46.1 1.4 0.5 AHI Non-Supine N/A N/A N/A NREM AHI 44.4 0.5 0.8 REM AHI 56.0 6.0 0.0 RDI 48.9 1.8 1.1 # Obstructive 4 0 0 # Central Ap 0 0 0 # Mixed 0 0 0 # Hypopneas 77 3 1 RERAS 5 1 1 Total Respiratory Events 86 4 2 Time Below SpO2 89.00% (min.) 40.4 0.0 0.0 Mean NREM SpO2 (%) 90 92 93 Mean REM SpO2 (%) 90 92 93 Mean Sleep SpO2 (%) 90 92 93 Min NREM SpO2 (%) 82 90 90 Min REM SpO2 (%) 80 90 90 Position Supine (min.) 105.5 132.8 113.2 Position Non-supine (min.) 0.0 0.0 0.0 LM Index Sleep 101.8 56.0 12.2 LM Index NREM 103.4 59.6 6.8 LM Index REM 92.0 36.0 25.1 Mean Heart Rate (bpm) 62 60 59 Min Heart Rate (bpm) 55 53 53 CPAP REPORT Therapy Detail Time / Page # Comment CPAP 4 cm H2O Nasal Mask Flex Pressure Relief Humidifier on 1:13:02 AM / pg. [id number] HE HAS OVER 2 HOURS OF RECORDING TIME AND HIS AHI IS ABOVE 40. CPAP 5 cm H2O Nasal Mask Flex Pressure Relief Humidifier on 3:36:26 AM / pg. 791 INCREASED FOR SOME HYPOPNEAS
--- NOTE | 2018-01-18 16:53 | POLYSOMNOGRAPH REPORT ---
CLINICAL DATA: 62-year-old male with BMI of 24.4 referred by Raleigh Oconnor and Dr. Keith Woodall for a split night sleep study with hypertension, snoring and witnessed apnea. This was a split night study. SLEEP ARCHITECTURE: For the diagnostic portion of the study, sleep period time was 110 minutes. Total sleep time was 105.5 minutes divided 90.5 minutes of non-REM sleep and 15 minutes of REM sleep. Sleep latency was 20.5 minutes. Sleep efficiency was 81%. Sleep consisted of stage N1 26%, stage N2 59%, stage N3 1%, and REM 14%. For the treatment portion of the study, sleep period time was 250.5 minutes. Total sleep time was 246 minutes divided between 192.5 minutes of non-REM sleep and 53.5 minutes of REM sleep. Sleep latency was 8 minutes. Sleep efficiency was 95%. Sleep consisted of stage N1 9%, stage N2 55%, stage N3 14%, and REM 22%. AROUSAL DATA: Prior to treatment, 73 arousals were recorded for an index of 41.5 per hour. During treatment, 55 limb movements during sleep were noted for an index of 13.4 per hour. PLM DATA: Prior to treatment, 103 limb movements during sleep were noted for an index of 58.6 per hour. During treatment, 124 limb movements during sleep were noted for an index of 30.2 per hour. EKG: Heart rates ranged from 59-93 beats per minute. No arrhythmias were noted. RESPIRATORY DATA: Severe sleep apnea was diagnosed prior to treatment. The diagnostic AHI was 46.1. The diagnostic RDI was 48.9. There were 4 obstructive apneic episodes, 77 hypopneic episodes, and 5 RERAs. The AHI during treatment was 1. OXIMETRY DATA: Nocturnal hypoxemia was seen prior to treatment. Oxygen danni was 80% during REM sleep prior to treatment. Mean saturation with treatment was 93%. WARPER TENDER'S COMMENTS AND TREATMENT SUMMARY: The patient slept supine. Snoring was mild, rated 2 on a scale of 1-5. At 1:13 a.m. he met split night criteria. A Mirage soft FX soft edge nasal mask size standard from [email or web address] was used. He was titrated up to his final pressure of 5 cm water pressure. At that final pressure setting he slept 113.2 minutes with an AHI of 0.5. IMPRESSION: Severe sleep apnea/hypopnea with diagnostic AHI of 46.1 and a diagnostic RDI of 48.9 corrected with CPAP 5 cm water pressure using a Mirage FX soft edge nasal mask size standard from [employer]. RECOMMENDATIONS: The patient should be started on the above noted treatment regimen and seen back in followup within 90 days to document efficacy and compliance. Sleep medicine consultation may be of benefit. Clinical correlation is needed.
== END | disposition home or self-care (01) ==
LOC: C.NEUR 21:00
PROVIDERS: ATTEND Physician Assistant
DX: G47.33 Obstructive sleep apnea (adult) (pediatric) (principal); I10 Essential (primary) hypertension; Z79.01 Long term (current) use of anticoagulants; Z79.899 Other long term (current) drug therapy; Z95.2 Presence of prosthetic heart valve

== ENCOUNTER 2022-04-01 08:32 | Inpatient (IN) ==
[2022-04-01] MEDS ORDERED: cefTRIAXone SODIUM 2,000 MG/70 ML BAG IV STA (09:22)
[2022-04-01] MEDS ORDERED: VANCOMYCIN HCL 2,000 MG in SODIUM CHLORIDE 0.9% 500 ML IV ONE (09:22)
[2022-04-01] MEDS ORDERED: VANCOMYCIN CONSULT ACTIVE PRN (09:22)
--- NOTE | 2022-04-01 09:29 | Emergency Department Note ---
History of Present Illness General Chief complaint: Abnormal Labs/Diagnostic Testing Stated complaint: STREP INFECTION IN BLOOD SENT FOR IV MEDS Time Seen by Provider: 04/01/22 09:00 Source: patient History of Present Illness Provider complaint: Fever chills and fatigue Onset (ago): week(s) (6) Location: head Pain Consistency: + intermittent Quality: + other (Fatigued and T-max of 99) Relieved By: + medication (Symptoms seem better while on doxycycline) Associated symptoms: + fever/chills and + weakness; no chest pain, no cough, no headaches, no nausea/vomiting, no rash or no shortness of breath This is a 66-year-old male sent over from his doctor's office for positive blood culture drawn yesterday in the outpatient lab which grew out Streptococcus species. The patient states that he has been having intermittent fevers and chills as well as fatigue for the past 6 weeks. He has had low-grade temperatures mostly up to 99 although states most of the time he did not take his temperature. He was checked by his doctor and has had multiple tests including negative COVID tests, negative testing for tickborne illness including anaplasmosis and Lyme, and other tests for an infectious source. He was placed on doxycycline for 21 days because he was going to vacation to [place] and he stated that he might of felt better on the antibiotics but is not sure. He states it was very bait [place]. 5 days ago he developed pain in his left lower back. He describes it as an aching pain rating down his left leg. He denies having any back problems in the past. He has no incontinence or numbness or weakness to his legs. He denies any cough or cold symptoms, sore throat, chest pain, shortness of breath, abdominal pain, vomiting, diarrhea or urinary symptoms. He has had no tick bites or rashes. He does state that he has a bovine aortic valve replacement in 2015. He states that he was initially not going to be placed on blood thinners as it was a bovine valve but weeks later he developed DVTs and a PE. He was told that he had some type of coagulation disorder and so he has been on Coumadin since. He states he also has a [place] filter. Home Medications Medication Instructions Recorded Confirmed Type albuterol sulfate 90 mcg/actuation 2 inh inhalation Q4H PRN Shortness 04/01/22 04/01/22 History aerosol inhaler Of Breath atorvastatin 80 mg tablet 80 tab PO HS 04/01/22 04/01/22 History fenofibrate 54 mg tablet 54 tab PO QAM 04/01/22 04/01/22 History losartan 50 mg-hydrochlorothiazide 1 tab PO QAM 04/01/22 04/01/22 History 12.5 mg tablet metoprolol tartrate 50 mg tablet 50 tab PO BID 04/01/22 04/01/22 History tiotropium bromide 18 mcg capsule 1 inh inhalation QA 04/01/22 04/01/22 History with inhalation device (Spiriva with HandiHaler) warfarin 2 mg tablet 2 tab PO HS 04/01/22 04/01/22 History Allergies Allergy/AdvReac Type Severity Reaction Status Date / Time No Known Allergies Allergy Verified 04/01/22 10:18 Past Med/Surg History Medical History (Updated 04/01/22 @ 13:06 by Ezra Bergman MD) DVT (deep venous thrombosis) HTN (hypertension) Pulmonary embolism Surgical History (Updated 04/01/22 @ 12:58 by Jadyn Armstrong PA-C) Aortic valve replaced History of cholecystectomy History of tonsillectomy and adenoidectomy History of vitrectomy Hx of appendectomy Hx of sinus surgery Family History (Updated 04/01/22 @ 12:55 by Jadyn Armstrong PA-C) Father Lung cancer Social History (Updated 04/01/22 @ 12:55 by Jadyn Armstrong PA-C) Smoking Status: Former smoker Tobacco Type: Cigarettes packs per day: 1.5; Years Smoked: 25; Hx Alcohol Use: Yes Alcohol type: hard liquor Alcohol type Comment: rum, 14 drinks a week Alcohol Intake Frequency: 4 or More x per/Week Preferred Language: Kiswahili Communication Ability: Effective marital status: Current Living Situation: Spouse Feels Safe at Home: Yes Review of Systems See HPI for pertinent positives & negatives. and A total of 10 systems reviewed and were otherwise negative Physical Exam Vital Signs Vital Signs - 24 hr 04/01/22 08:33 04/01/22 09:21 04/01/22 09:21 Temperature 36.5 C Temperature Source Temporal Artery Scan Pulse Rate 89 Pulse Rate [Apical] Respiratory Rate 18 Respiratory Effort / Characteristics Non-Labored Spontaneous Respiratory Depth Blood Pressure 119/68 Blood Pressure [Left Arm] Blood Pressure Mean 85 Blood Pressure Mean [Left Arm] Pulse Oximetry 100 96 Oxygen Delivery Method Room Air Room Air Sepsis Recent Fever Within 48 Hours No Sepsis New/Unexplained Change in Mental Status No Sepsis Action Taken by Nursing No Action Required 04/01/22 09:51 04/01/22 11:30 04/01/22 11:30 Temperature Temperature Source Pulse Rate Pulse Rate [Apical] 81 Respiratory Rate 20 Respiratory Effort / Characteristics Non-Labored Spontaneous Non-Labored Spontaneous Non-Labored Spontaneous Respiratory Depth Normal Blood Pressure Blood Pressure [Left Arm] 107/67 Blood Pressure Mean Blood Pressure Mean [Left Arm] 80 Pulse Oximetry 99 Oxygen Delivery Method Room Air Sepsis Recent Fever Within 48 Hours Sepsis New/Unexplained Change in Mental Status Sepsis Action Taken by Nursing 04/01/22 11:30 04/01/22 11:45 04/01/22 12:00 Temperature Temperature Source Pulse Rate 84 78 Pulse Rate [Apical] Respiratory Rate 14 12 18 Respiratory Effort / Characteristics Non-Labored Spontaneous Respiratory Depth Blood Pressure 107/67 114/61 Blood Pressure [Left Arm] Blood Pressure Mean 80 78 Blood Pressure Mean [Left Arm] Pulse Oximetry 98 99 98 Oxygen Delivery Method Room Air Sepsis Recent Fever Within 48 Hours Sepsis New/Unexplained Change in Mental Status Sepsis Action Taken by Nursing 04/01/22 12:00 04/01/22 12:30 04/01/22 12:15 Temperature Temperature Source Pulse Rate 76 76 Pulse Rate [Apical] Respiratory Rate 15 18 20 Respiratory Effort / Characteristics Non-Labored Spontaneous Respiratory Depth Blood Pressure 109/60 107/68 Blood Pressure [Left Arm] Blood Pressure Mean 76 81 Blood Pressure Mean [Left Arm] Pulse Oximetry 98 100 97 Oxygen Delivery Method Room Air Sepsis Recent Fever Within 48 Hours Sepsis New/Unexplained Change in Mental Status Sepsis Action Taken by Nursing 04/01/22 12:30 04/01/22 12:45 Temperature Temperature Source Pulse Rate 74 74 Pulse Rate [Apical] Respiratory Rate 17 16 Respiratory Effort / Characteristics Respiratory Depth Blood Pressure 113/66 97/53 L Blood Pressure [Left Arm] Blood Pressure Mean 81 67 Blood Pressure Mean [Left Arm] Pulse Oximetry 97 99 Oxygen Delivery Method Sepsis Recent Fever Within 48 Hours Sepsis New/Unexplained Change in Mental Status Sepsis Action Taken by Nursing Constitutional: Vital signs reviewed. Eyes: Pupils are equal round reactive to light. Conjunctiva are noninjected. ENT: Pharynx is clear without erythema or exudate. Mucous membranes are moist. Neck supple without meningeal signs. Respiratory: Clear to auscultation bilaterally. Breath sounds are equal bilaterally. Cardiovascular: Regular rate and rhythm. Early systolic murmur heard best at the right second ICS. GI: Soft, nondistended and nontender. Bowel sounds are present. Musculoskeletal: No peripheral edema. No lower extremity tenderness. No midline tenderness to the thoracic or lumbar spine. Integumentary: No cyanosis. or jaundice. Neurological: The patient is awake and alert. No focal deficits. Motor and sensation are intact throughout the lower extremities. Psychiatric: Normal affect. Not anxious appearing. Course Administered Medications Discontinued Medications Gadobutrol (Gadobutrol 65ml Vial) 7.5 ml IV ONCE ONE Stop: 04/01/22 10:57 Last Admin: 04/01/22 10:57 Dose: 7.5 ml Documented By: YARY Ceftriaxone Sodium (Rocephin) 2,000 mg in 70 mls @ 140 mls/hr IV NOW STA Stop: 04/01/22 09:51 Last Infusion: 04/01/22 12:26 Dose: 0 mls/hr Documented By: Admin: 04/01/22 11:56 Dose: 140 mls/hr Documented By: YANDY Vancomycin HCl 2,000 mg/ (Sodium Chloride) 540 mls @ 200 mls/hr IV NOW ONE Stop: 04/01/22 12:03 Last Admin: 04/01/22 12:19 Dose: 200 mls/hr Documented By: YANDY Medical Decision Making Differential Diagnosis Bacteremia, SIRS, sepsis, endocarditis, osteomyelitis Medical Records Attestation: I reviewed the patient's medical records. I did perform a limited focused review of portions of the patient's old chart on the electronic medical record. The patient has had no recent pertinent visits to this hospital. Blood work from the [facility] system showed a positive blood culture drawn yesterday which grew out Streptococcus species. His white blood cell count was 11. Home Medications Current Medication List: was personally reviewed by me Laboratory Data Attestation: I reviewed the patient's lab results. Result diagrams: 04/01/22 09:45 04/01/22 09:45 Lab Results 04/01/22 04/01/22 04/01/22 Range/Units 09:45 09:45 09:45 WBC 11.86 H (4.8-10.8) K/ul RBC 3.78 L (4.63-6.08) M/uL Hgb 11.8 L (14.0-18.0) g/dl Hct 34.7 L (40.1-51.0) % MCV 91.8 (80.0-100.0) fL MCH 31.2 (25.0-34.0) pg MCHC 34.0 (32.0-36.0) g/dL RDW Std Deviation 43.3 (36.4-46.3) fL RDW Coeff of Lizbeth 12.9 (11.5-14.5) % Plt Count 377 (130-400) K/uL MPV 9.8 (9.4-12.4) fL Immature Gran % (Auto) 1.4 % Neut % (Auto) 76.5 % Lymph % (Auto) 14.2 % [place] % (Auto) 6.6 % Eos % (Auto) 0.7 % Baso % (Auto) 0.6 % Neut # (Auto) 9.07 H (1.4-6.5) K/uL Lymph # (Auto) 1.69 (1.2-3.4) K/uL [place] # (Auto) 0.78 (0.24-0.82) K/uL Eos # (Auto) 0.08 (0-0.50) K/uL Baso # (Auto) 0.07 (0-0.2) K/uL Immature Gran # (Auto) 0.17 H (0.00-0.02) K/uL PT 18.7 H (9.0-12.0) Seconds INR 1.8 H (0.9-1.1) APTT 37.0 H (21.0-31.0) Seconds PTT Ratio 1.3 Sodium 133 L (136-145) mmol/L Potassium 3.8 (3.5-5.1) mmol/L Chloride 99 (98-107) mmol/L Carbon Dioxide 26 (21-32) mmol/L Anion Gap 8 (3-11) BUN 12 (6-23) mg/dl Creatinine 1.06 (0.6-1.4) mg/dl Est Cr Clr Drug Dosing 71.0 ml/min Est GFR ( Amer) 83.2 ml/min Est GFR (Non-Af Amer) 71.8 ml/min BUN/Creatinine Ratio 11.3 (10-20) Glucose 104 H (70-99(Fasting)) mg/dl Lactate (0.4-2.0) mmol/L Calcium 9.7 (8.5-10.1) mg/dl Magnesium 1.7 (1.7-2.4) mg/dl Total Bilirubin 0.6 (0.2-1.0) mg/dl AST 17 (13-39) U/L ALT 13 (7-52) U/L Alkaline Phosphatase 76 (34-104) U/L Troponin I High Sens 4.6 (0-20) pg/ml C-Reactive Protein 5.21 H (0-0.5) mg/dl Total Protein 8.3 (6.0-8.3) gm/dl Albumin 4.0 (3.4-5.0) gm/dl Globulin 4.3 H (2.5-4.0) gm/dl Albumin/Globulin Ratio 0.9 (0.9-2) / Range/Units 09:45 WBC (4.8-10.8) K/ul RBC (4.63-6.08) M/uL Hgb (14.0-18.0) g/dl Hct (40.1-51.0) % MCV (80.0-100.0) fL MCH (25.0-34.0) pg MCHC (32.0-36.0) g/dL RDW Std Deviation (36.4-46.3) fL RDW Coeff of Lizbeth (11.5-14.5) % Plt Count (130-400) K/uL MPV (9.4-12.4) fL Immature Gran % (Auto) % Neut % (Auto) % Lymph % (Auto) % [place] % (Auto) % Eos % (Auto) % Baso % (Auto) % Neut # (Auto) (1.4-6.5) K/uL Lymph # (Auto) (1.2-3.4) K/uL [place] # (Auto) (0.24-0.82) K/uL Eos # (Auto) (0-0.50) K/uL Baso # (Auto) (0-0.2) K/uL Immature Gran # (Auto) (0.00-0.02) K/uL PT (9.0-12.0) Seconds INR (0.9-1.1) APTT (21.0-31.0) Seconds PTT Ratio Sodium (136-145) mmol/L Potassium (3.5-5.1) mmol/L Chloride (98-107) mmol/L Carbon Dioxide (21-32) mmol/L Anion Gap (3-11) BUN (6-23) mg/dl Creatinine (0.6-1.4) mg/dl Est Cr Clr Drug Dosing ml/min Est GFR ( Amer) ml/min Est GFR (Non-Af Amer) ml/min BUN/Creatinine Ratio (10-20) Glucose (70-99(Fasting)) mg/dl Lactate 0.9 (0.4-2.0) mmol/L Calcium (8.5-10.1) mg/dl Magnesium (1.7-2.4) mg/dl Total Bilirubin (0.2-1.0) mg/dl AST (13-39) U/L ALT (7-52) U/L Alkaline Phosphatase (34-104) U/L Troponin I High Sens (0-20) pg/ml C-Reactive Protein (0-0.5) mg/dl Total Protein (6.0-8.3) gm/dl Albumin (3.4-5.0) gm/dl Globulin (2.5-4.0) gm/dl Albumin/Globulin Ratio (0.9-2) Imaging Data Radiologist's Impression: Lumbar Spine MRI 04/01/22 09:20 MRI LUMBAR SPINE COMBO CLINICAL HISTORY: Back pain. Fever. COMPARISON STUDY: Abdominal CT dated 05/17/2015. TECHNIQUE: MRI of the lumbar spine is performed utilizing various T1 and T2- weighted sequences in the axial and sagittal planes. Contrast-enhanced sequences are obtained following the IV administration of 7.5 cc of Gadavist. FINDINGS: Lumbar spine: Vertebral body height and alignment are maintained throughout the lumbar spine. Marrow signal intensity is heterogeneous. The transverse and spinous processes appear intact. There is no evidence of spondylolysis. No destructive bony lesion is seen. No erosive change is identified. Intervertebral discs: There is minimal degenerative disc desiccation. The disc heights are maintained. Spinal cord: The visualized spinal cord is normal in morphology and signal intensity. The conus medullaris terminates at the level of L2. The nerve roots o f the cauda equina are normal in morphology. No abnormal postcontrast enhancement is identified. There is no MRI evidence of epidural fluid collection. L1-L2: Unremarkable. L2-L3: Unremarkable. L3-L4: There is minimal posterior disc bulge. The central canal and neural foramina are patent. Facet arthropathy is of no consequence. L4-L5: There is minimal bilateral subarticular stenosis. The central canal and neural foramina are patent. Facet arthropathy is of no consequence. L5-S1: There is minimal bilateral subarticular stenosis. There is minimal posterior disc bulge. The central canal and neural foramina are patent. Facet arthropathy is of no consequence. Sacrum: Mild fatty marrow changes seen throughout the sacrum. Soft tissues: The paraspinous soft tissues are within normal limits. No paravertebral edema is seen. The retroperitoneal structures are grossly unremarkable but incompletely evaluated. The bladder wall appears thickened and trabeculated suggesting chronic outlet obstruction. IMPRESSION: 1. There is no disc herniation, central canal stenosis, or neural foraminal narrowing seen throughout the lumbar spine. 2. Heterogeneous marrow signal with no destructive bony process identified. 3. Specifically, there is no MRI evidence of discitis/osteomyelitis of the lumbar spine as clinically queried. 4. Additional findings as above. Dictated: 04/01/2022 11:35 AM Transcribed: 04/01/2022 11:54 AM Shruthi [id number] CHELITA_Randy Electronically signed by: Rayray Gross M.D. 04/01/2022 11:55 AM Thoracic Spine MRI 04/01/22 09:20 MR thoracic spine wo/w con CLINICAL HISTORY: back pain/fever eval for osteomyellits. COMPARISON: None. TECHNIQUE: Multiplanar multisequence images of the Thoracic Spine were performed with and without IV contrast. Contrast Volume: 7.5 ml of Gadavist FINDINGS: Bones: There is no evidence for vertebral body fracture. The heights of the vertebral bodies are maintained. The vertebral bodies are in anatomic alignment. Homogeneous marrow signal is seen without evidence for marrow edema or marrow replacement. There is no abnormal marrow enhancement. Disc spaces: There are no focal disc protrusions or herniations identified. There is no significant spinal canal stenosis or neural foraminal narrowing present. Soft tissues: The thoracic spinal cord appears normal. There are no paraspinal fluid collections or soft tissue masses identified. No abnormal enhancement is identified. IMPRESSION: Negative MR of the thoracic spine. Electronically signed by: Domingo Espinosa M.D. 04/01/2022 11:25 AM Chest X-Ray 04/01/22 09:21 XR chest 1V portable HISTORY: SEPSIS COMPARISON: Chest CTA 05/08/2015. FINDINGS: The lungs are clear. The heart is normal in size. No pleural effusions. No pneumothorax. There are poststernotomy changes and an aortic valve prosthesis. IMPRESSION: No acute process. ACT 112: Negative or not required by law. Electronically signed by: Henok Hurt M.D. 04/01/2022 9:46 AM ECG Data Attestation: I personally reviewed and interpreted this ECG as follows: Indication: + weakness Rate (beats per minute): 81 Rhythm: + normal sinus ECG [place]: + Normal ECG ST segments: + T-wave inversions; no ST elevation ECG Findings: no PVCs MDM Narrative I did evaluate the patient as noted above. He is presenting with fever over the past 6 weeks with fatigue and recent positive blood culture. He does have a murmur on exam but states that he has had 1 due to an aortic valve replacement. I was concerned about potential endocarditis. IV access was established. After blood cultures were obtained I did treat the patient with IV vancomycin and ceftriaxone. I did place an order for continuous cardiac monitoring. The monitor showed normal sinus rhythm at a rate of 73 bpm. I did order and personally review the patient's 12-lead EKG as described above. He has some T wave inversions. He denies any chest pain or shortness of breath. I did order and personally reviewed the images of the patient's chest x-ray as described above. There is no evidence of pneumonia. I did order a urine analysis. I did order and review the patient's blood work as noted in the electronic medical record. CBC demonstrates a white count of 11.8. His hemoglobin is 11.8. Platelet count is 377. INR subtherapeutic at 1.8. He is not on Coumadin because of his valve. He is on it for history of PE and DVT. Sodium is 133. C-reactive protein is 5.2. Troponin is negative. Lactate is not elevated. I did order an MRI of the thoracic and lumbar spine. I did review the images myself as well as the radiology report as described above. There is no evidence of osteomyelitis or abscess. He does have some disc bulging in the lower lumbar spine which may account for his back pain. I did discuss the test results with the patient. I did recommend hospitalization for further evaluation, IV antibiotics and echocardiogram. I did discuss the case with the hospitalist and case resource manager. Impression & Plan Bacteremia, Subtherapeutic international normalized ratio (INR), Hyponatremia, Anemia, Left lumbar radiculopathy Discharge Plan Visit Data Chief Complaint: Abnormal Labs/Diagnostic Testing Stated Complaint: STREP INFECTION IN BLOOD SENT FOR IV MEDS ED Provider: Ezra Bergman Discharge Problem: Bacteremia, Subtherapeutic international normalized ratio (INR), Hyponatremia, Anemia, Left lumbar radiculopathy Patient Disposition: Being Evaluated by Hospitalist Forms Stand Alone Forms: My [facility] Prescriptions Prescriptions: No Action atorvastatin 80 mg tablet 80 tab PO HS warfarin 2 mg tablet 2 tab PO HS metoprolol tartrate 50 mg tablet 50 tab PO BID albuterol sulfate 90 mcg/actuation HFA aerosol inhaler 2 inh INHALATION Q4H PRN (Reason: Shortness Of Breath) losartan-hydrochlorothiazide 50-12.5 mg tablet 1 tab PO QAM Spiriva with HandiHaler 18 mcg capsule, w/inhalation device 1 inh INHALATION QAM fenofibrate 54 mg tablet 54 tab PO QAM Referrals Referrals: PCP,NO [Physician] -
--- NOTE | 2022-04-01 09:47 | XRay Report ---
XR chest 1V portable HISTORY: SEPSIS COMPARISON: Chest CTA 05/08/2015. FINDINGS: The lungs are clear. The heart is normal in size. No pleural effusions. No pneumothorax. Th ere are poststernotomy changes and an aortic valve prosthesis. IMPRESSION: No acute process. ACT 112: Negative or not required by law. Electronically signed by: Henok Hurt M.D. 04/01/2022 9:46 AM
[2022-04-01 10:08] LABS: Basophils # (auto) 0.07 K/uL (0-0.2); Basophils % (auto) 0.6 %; Eosinophils # (auto) 0.08 K/uL (0-0.50); Eosinophils % (auto) 0.7 %; Hematocrit (blood only) 34.7 % (40.1-51.0); Hemoglobin 11.8 g/dl (14.0-18.0); Immature Granulocytes # (auto) 0.17 K/uL (0.00-0.02); Immature Granulocytes % (auto) 1.4 %; Lymphocytes # (auto) 1.69 K/uL (1.2-3.4); Lymphocytes % (auto) 14.2 %; Mean Corpuscular Hemoglobin 31.2 pg (25.0-34.0); Mean Corpuscular Volume 91.8 fL (80.0-100.0); Mean Platelet Volume 9.8 fL (9.4-12.4); Monocytes # (auto) 0.78 K/uL (0.24-0.82); Monocytes % (auto) 6.6 %; Neutrophils # (auto) 9.07 K/uL (1.4-6.5); Neutrophils % (auto) 76.5 %; Platelet Count 377 K/uL (130-400); RDW Coefficient of Variation 12.9 % (11.5-14.5); RDW Standard Deviation 43.3 fL (36.4-46.3); Red Blood Count 3.78 M/uL (4.63-6.08); White Blood Count 11.86 K/ul (4.8-10.8)
[2022-04-01 10:29] LABS: INR 1.8 (0.9-1.1); Partial Thromboplastin Ratio 1.3; Prothrombin Time 18.7 Seconds (9.0-12.0)
[2022-04-01 10:50] LABS: Albumin Globulin Ratio 0.9 (0.9-2); Bilirubin,Total 0.6 mg/dl (0.2-1.0); C Reactive Protein 5.21 mg/dl (0-0.5); Calcium 9.7 mg/dl (8.5-10.1); Globulin 4.3 gm/dl (2.5-4.0); Magnesium 1.7 mg/dl (1.7-2.4); Potassium 3.8 mmol/L (3.5-5.1); Total Protein 8.3 gm/dl (6.0-8.3)
[2022-04-01] MEDS ORDERED: GADOBUTROL 65ML VIAL IV ONE (10:56)
[2022-04-01 11:07] LABS: BUN Creatinine Ratio 11.3 (10-20); Est GFR (African American) 83.2 ml/min; Est GFR (Non-African American) 71.8 ml/min
[2022-04-01 11:08] LABS: Troponin I High Sensitivity 4.6 pg/ml (0-20)
--- NOTE | 2022-04-01 11:26 | Magnetic Resonance Report ---
MR thoracic spine wo/w con CLINICAL HISTORY: back pain/fever eval for osteomyellits. COMPARISON: None. TECHNIQUE: Multiplanar multisequence images of the Thoracic Spine were performed with and without IV contrast. Contrast Volume: 7.5 ml of Gadavist FINDINGS: Bones: There is no evidence for vertebral body fracture. The heights of the vertebral bodies are main tained. The vertebral bodies are in anatomic alignment. Homogeneous marrow signal is seen without mara dence for marrow edema or marrow replacement. There is no abnormal marrow enhancement. Disc spaces: There are no focal disc protrusions or herniations identified. There is no significant s rashid canal stenosis or neural foraminal narrowing present. Soft tissues: The thoracic spinal cord appears normal. There are no paraspinal fluid collections or s oft tissue masses identified. No abnormal enhancement is identified. IMPRESSION: Negative MR of the thoracic spine. Electronically signed by: Domingo Espinosa M.D. 04/01/2022 11:25 AM
--- NOTE | 2022-04-01 11:57 | Magnetic Resonance Report ---
MRI LUMBAR SPINE COMBO CLINICAL HISTORY: Back pain. Fever. COMPARISON STUDY: Abdominal CT dated 05/17/2015. TECHNIQUE: MRI of the lumbar spine is performed utilizing various T1 and T2-weighted sequences in the axial and sagittal planes. Contrast-enhanced sequences are obtained following the IV administration of 7.5 cc of Gadavist. FINDINGS: Lumbar spine: Vertebral body height and alignment are maintained throughout the lumbar spine. Marrow signal intensity is heterogeneous. The transverse and spinous processes appear intact. There is no ev idence of spondylolysis. No destructive bony lesion is seen. No erosive change is identified. Intervertebral discs: There is minimal degenerative disc desiccation. The disc heights are maintained . Spinal cord: The visualized spinal cord is normal in morphology and signal intensity. The conus medul irwin terminates at the level of L2. The nerve roots of the cauda equina are normal in morphology. No abnormal postcontrast enhancement is identified. There is no MRI evidence of epidural fluid collecti on. L1-L2: Unremarkable. L2-L3: Unremarkable. L3-L4: There is minimal posterior disc bulge. The central canal and neural foramina are patent. Facet arthropathy is of no consequence. L4-L5: There is minimal bilateral subarticular stenosis. The central canal and neural foramina are pa tent. Facet arthropathy is of no consequence. L5-S1: There is minimal bilateral subarticular stenosis. There is minimal posterior disc bulge. The c entral canal and neural foramina are patent. Facet arthropathy is of no consequence. Sacrum: Mild fatty marrow changes seen throughout the sacrum. Soft tissues: The paraspinous soft tissues are within normal limits. No paravertebral edema is seen. The retroperitoneal structures are grossly unremarkable but incompletely evaluated. The bladder wall appears thickened and trabeculated suggesting chronic outlet obstruction. IMPRESSION: 1. There is no disc herniation, central canal stenosis, or neural foraminal narrowing seen throughout the lumbar spine. 2. Heterogeneous marrow signal with no destructive bony process identified. 3. Specifically, there is no MRI evidence of discitis/osteomyelitis of the lumbar spine as clinically queried. 4. Additional findings as above. Dictated: 04/01/2022 11:35 AM Transcribed: 04/01/2022 11:54 AM Shruthi [id number] CHELITA_Randy Electronically signed by: Rayray Gross M.D. 04/01/2022 11:55 AM
--- NOTE | 2022-04-01 12:34 | Electrocardiogram Report ---
Test Reason : Blood Pressure : / mmHG Vent. Rate : 081 BPM Atrial Rate : 081 BPM P-R Int : 136 ms QRS Dur : 090 ms QT Int : 376 ms P-R-T Axes : 028 035 046 degrees QTc Int : 436 ms Normal sinus rhythm T wave abnormality, consider anterior ischemia Abnormal ECG When compared with ECG of 04-JUN-2015 07:38, No significant change was found Confirmed by Avni Hamilton ([id number]) on 04/01/2022 12:34:09 PM Referred By: Ruth Alonzo Confirmed By:Kei Hamilton
--- NOTE | 2022-04-01 12:50 | History & Physical Report ---
Date of Service April 01, 2022 Assessment & Plan (1) Bacteremia: (2) Subtherapeutic international normalized ratio (INR): (3) Hyponatremia: (4) Anemia: (5) Left lumbar radiculopathy: Plan This is a 66 yr old M who has significant past medical history of COPD, interstitial lung disease, HTN, HLD, history of DVT, HENOK on CPAP, history of carotid artery dissection, thrombophilia, long-term anticoagulation with Coumadin, history of bovine aortic valve replacement with aortic root repair in 2014 at [facility], history of IVC filter placement who presents to ED at the referral of PCP secondary to positive blood cultures along with fever and chills off and on x2 months. Bacteremia pt does not meet SIRS/Sepsis criteria Blood cultures in OP setting growing streptococcus, final sensitives still pending source unknown at this time, concern for endocarditis given AVR OP UA negative, CXR negative Tick born illness screen negative OP he did complete 6 wk course of doxy obtain echocardiogram consult cardiology for consideration for WARREN consult infectious disease repeat cultures pending will repeat CBC, ESR, CRP and blood cultures in a.m. IV Vancomycin and Rocephin empirically MRI of L spine and T spine given back pain negative for diskitis or OM Hx of Bovine AVR with aortic root repair in 2014 at [facility] HTN HLD continue metoprolol hold losartan/hctz for now as BP on softer side in ED will give gentle fluid x 1 L continue statin HX of DVT/PE Presence of IVCF continue warfarin INR subtherapeutic today at 1.8 but has been therapeutic per OP labs continue 2mg warfarin daily Anemia hgb 11.8 Outpatient anemia panel revealed iron 35, transferrin saturation 14, ferritin 720, B12 379, folic acid 18.4 Possibly in setting of acute illness given prolonged state and adequate iron stores No signs or symptoms of bleeding, will monitor closely Hyponatremia Sodium 133 Patient is on HCTZ, will hold for now as pressure on lower side in ED Gentle IV fluid BMP in a.m. L lower back pain MRI L spine negative conservative tx for now with heat, PT, Apap HENOK of CPAP CPAP at HS COPD ILD continue home inhalers no acute exac Alcohol abuse 14 drinks/wk last drink last night place on awss scale and prn protocol DVT ppx: warfarin Dispo: PCU FULL CODE PCP: Arelis Parker Pt was seen and examined in collaboration with Dr. Ramirez, please see addendum History of Present Illness Chief Complaint: fever and chills off and on x 2 months. Primary Care Provider: Dav Parker, This is a 66 yr old M who has significant past medical history of COPD, interstitial lung disease, HTN, HLD, history of DVT, HENOK on CPAP, history of carotid artery dissection, thrombophilia, long-term anticoagulation with Coumadin, history of bovine aortic valve replacement with aortic root repair in 2014 at [facility], history of IVC filter placement who presents to ED at the referral of PCP secondary to positive blood cultures along with fever and chills off and on x2 months. Over the last 6 weeks to 2 months patient has had intermittent chills and sweats. He has not checked his temperature at home to know if he had a true fever; however when being seen in clinic multiple times he was found to have low-grade fever around 100. In early February he was treated with a 3-week course of doxycycline due to concern for possible tickborne disease. His Lyme and Anaplasma screen were negative. He did start to feel better after the 3 weeks of doxycycline but as of late his chills and sweats have returned, complains of easy fatigability and generalized weakness. He was seen in clinic yesterday due to new onset back pain for the past 3 to 4 days. This back pain started after he was fishing and move the wrong way. Pain is left lower back with radiation down posterior aspect of left leg. After being seen in clinic yesterday and again finding low-grade fever he underwent full lab work-up including blood cultures. Blood cultures returned positive today growing Streptococcus. He was referred to ED Allergies Allergy/AdvReac Type Severity Reaction Status Date / Time No Known Allergies Allergy Verified 04/01/22 10:18 Home Medications Medication Instructions Recorded Confirmed Type albuterol sulfate 90 mcg/actuation 2 inh inhalation Q4H PRN Shortness 04/01/22 04/01/22 History aerosol inhaler Of Breath atorvastatin 80 mg tablet 80 tab PO HS 04/01/22 04/01/22 History fenofibrate 54 mg tablet 54 tab PO QAM 04/01/22 04/01/22 History losartan 50 mg-hydrochlorothiazide 1 tab PO QAM 04/01/22 04/01/22 History 12.5 mg tablet metoprolol tartrate 50 mg tablet 50 tab PO BID 04/01/22 04/01/22 History tiotropium bromide 18 mcg capsule 1 inh inhalation QAM 04/01/22 04/01/22 History with inhalation device (Spiriva with HandiHaler) warfarin 2 mg tablet 2 tab PO HS 04/01/22 04/01/22 History Past Med/Surg History Medical History COPD (chronic obstructive pulmonary disease) DVT (deep venous thrombosis) History of carotid artery dissection HLD (hyperlipidemia) HTN (hypertension) ILD (interstitial lung disease) HENOK on CPAP Presence of IVC filter Pulmonary embolism Surgical History Aortic valve replaced w/ aortic root repair 2014 [facility] [place] History of cholecystectomy History of tonsillectomy and adenoidectomy History of vitrectomy Hx of appendectomy Hx of sinus surgery Family History Father Lung cancer Social History Smoking Status: Former smoker Tobacco Type: Cigarettes packs per day: 1.5; Years Smoked: 25; Hx Alcohol Use: Yes Alcohol type: hard liquor Alcohol type Comment: rum, 14 drinks a week Alcohol Intake Frequency: 4 or More x per/Week Preferred Language: Mongolian Communication Ability: Effective marital status: Current Living Situation: Spouse Feels Safe at Home: Yes Review of Systems Review of Systems: All systems reviewed & are unremarkable except as noted in HPI & below Physical Exam Physical Exam: Constitutional: WD/WN, vitals as above, NAD, sitting up in bed, pleasant, conversing easily Head: Normocephalic, Atraumatic Eyes: PERRL, conjunctivae normal, anicteric sclerae ENMT: external ear and nose normal, oropharynx normal Neck: trachea midline, no thyromegaly normal visual inspection Respiratory: normal respiratory effort, lungs clear to auscultation, no wheeze, rales, rhonchi. Normal insp/exp effort, no accessory muscle use Cardiovascular: RRR, 2/6 RONEL noted RUSB, no edema Vessels: no JVD or carotid bruit Chest: normal inspection of chest Abdomen: normal bowel sounds, soft, nontender, no hepatosplenomegaly Musculoskeletal: no cyanosis or clubbing, extremities motor strength 5/5 Skin: no rashes, warm and dry normal turgor Neurologic: PERRL, EOMI, accommodation nl, no face palsy, no dysarthria CN's II-XI intact bilaterally and moves all extremities Psychiatric: A+Ox3, euthymic affect : deferred Results & Data Results & Data ([facility]) Vital Signs (Past 12 Hours) Vital Signs Temp Pulse Pulse Resp BP BP Pulse Ox 04/01/22 12:30 74 17 113/66 97 04/01/22 12:15 76 20 107/68 97 04/01/22 12:30 18 100 04/01/22 12:00 76 15 109/60 98 04/01/22 12:00 18 98 04/01/22 11:45 78 12 114/61 99 04/01/22 11:30 84 14 107/67 98 04/01/22 11:30 81 20 107/67 99 04/01/22 09:21 96 04/01/22 08:33 36.5 C 89 18 119/68 100 O2 Del Method 04/01/22 12:30 04/01/22 12:15 04/01/22 12:30 Room Air 04/01/22 12:00 04/01/22 12:00 Room Air 04/01/22 11:45 04/01/22 11:30 04/01/22 11:30 Room Air 04/01/22 09:21 Room Air 04/01/22 08:33 Room Air Diagnostic Findings Lumbar Spine MRI 04/01/22 09:20 MRI LUMBAR SPINE COMBO CLINICAL HISTORY: Back pain. Fever. COMPARISON STUDY: Abdominal CT dated 05/17/2015. TECHNIQUE: MRI of the lumbar spine is performed utilizing various T1 and T2- weighted sequences in the axial and sagittal planes. Contrast-enhanced sequences are obtained following the IV administration of 7.5 cc of Gadavist. FINDINGS: Lumbar spine: Vertebral body height and alignment are maintained throughout the lumbar spine. Marrow signal intensity is heterogeneous. The transverse and spinous processes appear intact. There is no evidence of spondylolysis. No destructive bony lesion is seen. No erosive change is identified. Intervertebral discs: There is minimal degenerative disc desiccation. The disc heights are maintained. Spinal cord: The visualized spinal cord is normal in morphology and signal intensity. The conus medullaris terminates at the level of L2. The nerve roots of the cauda equina are normal in morphology. No abnormal postcontrast enhancement is identified. There is no MRI evidence of epidural fluid collection. L1-L2: Unremarkable. L2-L3: Unremarkable. L3-L4: There is minimal posterior disc bulge. The central canal and neural foramina are patent. Facet arthropathy is of no consequence. L4-L5: There is minimal bilateral subarticular stenosis. The central canal and neural foramina are patent. Facet arthropathy is of no consequence. L5-S1: There is minimal bilateral subarticular stenosis. There is minimal posterior disc bulge. The central canal and neural foramina are patent. Facet arthropathy is of no consequence. Sacrum: Mild fatty marrow changes seen throughout the sacrum. Soft tissues: The paraspinous soft tissues are within normal limits. No paravertebral edema is seen. The retroperitoneal structures are grossly unremarkable but incompletely evaluated. The bladder wall appears thickened and trabeculated suggesting chronic outlet obstruction. IMPRESSION: 1. There is no disc herniation, central canal stenosis, or neural foraminal narrowing seen throughout the lumbar spine. 2. Heterogeneous marrow signal with no destructive bony process identified. 3. Specifically, there is no MRI evidence of discitis/osteomyelitis of the lumbar spine as clinically queried. 4. Additional findings as above. Dictated: 04/01/2022 11:35 AM Transcribed: 04/01/2022 11:54 AM Shruthi [id number] CHELITA_Randy Electronically signed by: Rayray Gross M.D. 04/01/2022 11:55 AM Thoracic Spine MRI 04/01/22 09:20 MR thoracic spine wo/w con CLINICAL HISTORY: back pain/fever eval for osteomyellits. COMPARISON: None. TECHNIQUE: Multiplanar multisequence images of the Thoracic Spine were performed with and without IV contrast. Contrast Volume: 7.5 ml of Gadavist FINDINGS: Bones: There is no evidence for vertebral body fracture. The heights of the vertebral bodies are maintained. The vertebral bodies are in anatomic alignment. Homogeneous marrow signal is seen without evidence for marrow edema or marrow replacement. There is no abnormal marrow enhancement. Disc spaces: There are no focal disc protrusions or herniations identified. There is no significant spinal canal stenosis or neural foraminal narrowing present. Soft tissues: The thoracic spinal cord appears normal. There are no paraspinal fluid collections or soft tissue masses identified. No abnormal enhancement is identified. IMPRESSION: Negative MR of the thoracic spine. Electronically signed by: Domingo Espinosa M.D. 04/01/2022 11:25 AM Chest X-Ray 04/01/22 09:21 XR chest 1V portable HISTORY: SEPSIS COMPARISON: Chest CTA 05/08/2015. FINDINGS: The lungs are clear. The heart is normal in size. No pleural effusi ons. No pneumothorax. There are poststernotomy changes and an aortic valve prosthesis. IMPRESSION: No acute process. ACT 112: Negative or not required by law. Electronically signed by: Henok Hurt M.D. 04/01/2022 9:46 AM Medications Administered Medication List Discontinued Medications Gadobutrol (Gadobutrol 65ml Vial) 7.5 ml IV ONCE ONE Stop: 04/01/22 10:57 Last Admin: 04/01/22 10:57 Dose: 7.5 ml Documented By: YARY Ceftriaxone Sodium (Rocephin) 2,000 mg in 70 mls @ 140 mls/hr IV NOW STA Stop: 04/01/22 09:51 Last Infusion: 04/01/22 12:26 Dose: 0 mls/hr Documented By: Admin: 04/01/22 11:56 Dose: 140 mls/hr Documented By: OAM Vancomycin HCl 2,000 mg/ (Sodium Chloride) 540 mls @ 200 mls/hr IV NOW ONE Stop: 04/01/22 12:03 Last Admin: 04/01/22 12:19 Dose: 200 mls/hr Documented By: OABailey ECG Rate (beats per minute): 81 Rhythm: normal sinus COVID-19 Results Results COVID-19 Adm Lab Results: RBC 3.78 M/uL (4.63-6.08) L 04/01/22 WBC 11.86 K/ul (4.8-10.8) H 04/01/22 Hgb 11.8 g/dl (14.0-18.0) L 04/01/22 Hct 34.7 % (40.1-51.0) L 04/01/22 Plt Count 377 K/uL (130-400) 04/01/22 Neutrophils (%) (Auto) 76.5 % 04/01/22 Lymphocytes (%) (Auto) 14.2 % 04/01/22 Monocytes # (Auto) 0.78 K/uL (0.24-0.82) 04/01/22 Eosinophils # (Auto) 0.08 K/uL (0-0.50) 04/01/22 Immature Granulocyte % (Auto) 1.4 % 04/01/22 Neutrophils # (Auto) 9.07 K/uL (1.4-6.5) H 04/01/22 Lymphocytes # (Auto) 1.69 K/uL (1.2-3.4) 04/01/22 Monocytes # (Auto) 0.78 K/uL (0.24-0.82) 04/01/22 Eosinophils # (Auto) 0.08 K/uL (0-0.50) 04/01/22 Basophils # (Auto) 0.07 K/uL (0-0.2) 04/01/22 Immature Granulocyte # (Auto) 0.17 K/uL (0.00-0.02) H 04/01 Na 133 mmol/L (136-145) L 04/01/22 K 3.8 mmol/L (3.5-5.1) 04/01/22 Cl 99 mmol/L (98-107) 04/01/22 CO2 26 mmol/L (21-32) 04/01/22 Anion Gap 8 (3-11) 04/01/22 BUN 12 mg/dl (6-23) 04/01/22 Creatinine 1.06 mg/dl (0.6-1.4) 04/01/22 BUN/Creatinine Ratio 11.3 (10-20) 04/01/22 Glucose Level 104 mg/dl (70-99(Fasting)) H 04/01/22 Ca 9.7 mg/dl (8.5-10.1) 04/01/22 Total Bilirubin 0.6 mg/dl (0.2-1.0) 04/01/22 AST/SGOT 17 U/L (13-39) 04/01/22 ALT/SGPT 13 U/L (7-52) 04/01/22 Alkaline Phosphatase 76 U/L (34-104) 04/01/22 Total Protein 8.3 gm/dl (6.0-8.3) 04/01/22 Albumin 4.0 gm/dl (3.4-5.0) 04/01/22 Globulin 4.3 gm/dl (2.5-4.0) H 04/01/22 Albumin/Globulin Ratio 0.9 (0.9-2) 04/01/22 CRP 5.21 mg/dl (0-0.5) H 04/01/22 PTT 37.0 Seconds (21.0-31.0) H 04/01/22 INR 1.8 (0.9-1.1) H 04/01/22 COVID-19 PCR NEGATIVE (Negative) 04/01/22 Chest X-Ray 04/01/22 Code Status & VTE Plan Code Status FULL CODE VTE Prophylaxis Plan VTE Prophylaxis will be ordered: No Supervising Physician Co-Signing Physician Notes Patient was seen and examined independently at bedside. Chart reviewed. Case discussed with Jadyn ROYAL and agree with the documentation above. In summary, this is a 66 year old male with h/o bioprosthetic AVR 2014, [facility] who was referred to ED by his PCP for bacteremia in blood clx from yesterday. Patient has ongoing fever and chills at home since January and had completed 3 weeks of doxycycline 3 weeks back. He saw his PCP yesterday for left back pain and was ordered labs due to his fever which resulted in Streptococcal bacteremia and was referred to ED. In ED, afebrile hemodynamically stable, not sick or septic looking. AAOx3. Chest clear, heart sounds normal, abd benign, no edema, no skin rash. Left low back pain improved. Doesn't meet SIRS or sepsis criteria. Will admit for bacteremia- start on vanc/ceftriaxone until culture results mature and tailor accordingly. TTE with no vegetation but cardio planning for WARREN tomorrow given his prosthetic valve. NPO after midnight, Holding anticoag as per cardio recommendations. ID eval pending. Rest as per the note above. (1) Anemia Anemia type: unspecified type Qualified Code(s): D64.9 - Anemia, unspecified
--- NOTE | 2022-04-01 14:39 | Cardiology Consultation ---
Date of Consultation April 01, 2022 Assessment & Plan (1) Bacteremia due to Streptococcus: (2) S/P AVR (aortic valve replacement): Plan Preliminary review of transthoracic echocardiogram reveals no evidence of endocarditis. Bioprosthetic aortic valve functioning normally. Recommend transesophageal echocardiogram for further evaluation. Continue broad spectrum antibiotics. Await culture sensitivities. N.p.o. except medications after midnight. With concerns regarding possible acute bacterial endocarditis, recommend holding anticoagulation temporarily. Other medications may be continued as previously ordered. Further recommendations pending results of transesophageal echocardiogram. Infectious disease consult pending. History of Present Illness Reason for Consultation: Streptococcus bacteremia, bioprosthetic aortic valve replacement Requesting Physician: Fabian Armstrong PA-C Attending Physician: Dr. Brooks History of Present Illness 66-year-old patient presents emergency department due to blood culture reporting Streptococcus. Reports possible tickborne illness a few weeks ago associated with fevers. Treated with doxycycline. Has noted chills over the past few days and back pain. No rigors or diaphoresis. Denies chest pain or unusual shortness of breath. No palpitations, lightheadedness, dizziness, syncope, or near syncope. Complex medical history listed below. Currently resting comfortably. Telemetry reveals sinus rhythm. Chronically anticoagulated due to history of DVT and PE. Past Medical/Surgical History: 1. Congenitally bicuspid aortic valve with associated ascending aortic aneurysm 2. Status post April 30, 2015 aortic valve replacement with a #23 mm pericardial valve and replacement of the ascending aorta with a #[address] Baakri Muir at [facility] 3. Postoperative complications including the followin. 04/2015 right lower extremity DVT and bilateral PE 2. Bilateral DVT in 05/2015 despite supratherapeutic INR status post IVC filter placement on 05/29/2015 3. Confusion/amnesia attributed to transient delirium 4. Possible TIA/right carotid dissection 5. Musculoskeletal right lower back pain and cervical neck pain. 4. March 19, 2015 diagnostic cardiac catheterization by Dr. Keith Woodall at [facility] demonstrated codominant coronary anatomy with minimal luminal irregularities with thin caliber coronaries and no obstructive disease. 5. Severe sleep apnea/hypopnea with an AHI of 46.1 and a RBI of 48.9 corrected with CPAP 5 cm H20 using a Mirage Fx soft edge nasal mask size standard from [employer] 6. Hypertension 7. Hyperlipidemia. 8. Hypertriglyceridemia. 9. Kidney stones. 10. Vertigo 11. Appendectomy 12. T/A. 13. Colonoscopy with hyperplastic polypectomy in February 2007. 14. Cholecystectomy, December 2016 15. Cataract extraction 16. Vitrectomy, Dr. Sultana, February 2017 Allergies Allergy/AdvReac Type Severity Reaction Status Date / Time No Known Allergies Allergy Verified 04/01/22 10:18 Home Medications Medication Instructions Recorded Confirmed Type albuterol sulfate 90 mcg/actuation 2 inh inhalation Q4H PRN Shortness 04/01/22 04/01/22 History aerosol inhaler Of Breath atorvastatin 80 mg tablet 80 tab PO HS 04/01/22 04/01/22 History fenofibrate 54 mg tablet 54 tab PO QAM 04/01/22 04/01/22 History losartan 50 mg-hydrochlorothiazide 1 tab PO QAM 04/01/22 04/01/22 History 12.5 mg tablet metoprolol tartrate 50 mg tablet 50 tab PO BID 04/01/22 04/01/22 History tiotropium bromide 18 mcg capsule 1 inh inhalation QAM 04/01/22 04/01/22 History with inhalation device (Spiriva with HandiHaler) warfarin 2 mg tablet 2 tab PO HS 04/01/22 04/01/22 History Patient History Medical History COPD (chronic obstructive pulmonary disease) DVT (deep venous thrombosis) History of carotid artery dissection HLD (hyperlipidemia) HTN (hypertension) ILD (interstitial lung disease) HENOK on CPAP Presence of IVC filter Pulmonary embolism Surgical History Aortic valve replaced w/ aortic root repair [address] [facility] History of cholecystectomy History of tonsillectomy and adenoidectomy History of vitrectomy Hx of appendectomy Hx of sinus surgery Family History Father Lung cancer Social History Smoking Status: Never smoker Tobacco Type: Cigarettes packs per day: 1.5; Years Smoked: 25; Second Hand Exposure: No; Do You Dip or Chew Tobacco: No; Tobacco Cessation Education Requested by Patient: No Hx Alcohol Use: No Hx Substance Use: No Preferred Language: Samoan Communication Ability: Effective Beliefs That Will Affect Care: None marital status: Current Living Situation: Spouse Other Information That Helps Us Care for You: No Feels Safe at Home: Yes Safety Concerns: Feels Safe At This Time Assistive Devices: CPAP Review of Systems Review of Systems: All systems reviewed & are unremarkable except as noted in Subjective Physical Exam Constitutional: well nourished; no acute distress Respiratory: normal respiratory effort, lungs clear to auscultation Cardiovascular: Rate/Rhythm: regular rate and regular rhythm Heart Sounds: normal S1, normal S2 and + murmur (1-2/6 systolic ejection murmur heard best at the right second intercostal s); no cardiac rub Vessels: radial pulses present; no JVD and no carotid bruit Extremities: no edema Gastrointestinal (Abdomen): Inspection/Auscultation: abdomen normal to inspection and normal bowel sounds; abdomen not distended Percussion/Palpation: abdomen soft; abdomen nontender, no guarding and abdomen not rigid Neurologic: CN's II-XI intact bilaterally and moves all extremities; no focal motor deficits Psychiatric: A+Ox3, euthymic affect Results & Data ([facility]) Vital Signs (Past 12 Hours) Vital Signs Temp Pulse Pulse Resp BP BP Pulse Ox 04/01/22 14:00 77 14 110/59 L 98 04/01/22 14:00 16 97 04/01/22 13:45 72 19 115/61 99 04/01/22 13:30 77 14 103/68 97 04/01/22 13:30 16 98 04/01/22 13:01 82 16 95/71 L 100 04/01/22 13:00 79 21 95/71 L 100 04/01/22 13:00 17 100 04/01/22 12:45 74 16 97/53 L 99 04/01/22 12:30 74 17 113/66 97 04/01/22 12:15 76 20 107/68 97 04/01/22 12:30 18 100 04/01/22 12:00 76 15 109/60 98 04/01/22 12:00 18 98 04/01/22 11:45 78 12 114/61 99 04/01/22 11:30 84 14 107/67 98 04/01/22 11:30 81 20 107/67 99 04/01/22 09:21 96 04/01/22 08:33 36.5 C 89 18 119/68 100 O2 Del Method 04/01/22 14:00 04/01/22 14:00 Room Air 04/01/22 13:45 04/01/22 13:30 04/01/22 13:30 Room Air 04/01/22 13:01 04/01/22 13:00 04/01/22 13:00 Room Air 04/01/22 12:45 04/01/22 12:30 04/01/22 12:15 04/01/22 12:30 Room Air 04/01/22 12:00 04/01/22 12:00 Room Air 04/01/22 11:45 04/01/22 11:30 04/01/22 11:30 Room Air 04/01/22 09:21 Room Air 04/01/22 08:33 Room Air
[2022-04-01] MEDS: SODIUM CHLORIDE 0.9% 1000ML 1,000 ML IV SCH (15:14)
[2022-04-01] MEDS ORDERED: LORazepam 1 MG TAB PO PRN (15:31)
[2022-04-01] MEDS ORDERED: ALBUTEROL HFA 8 GM INHALER INH PRN (15:31)
[2022-04-01] MEDS ORDERED: POLYETHYLENE (MIRALAX) 17 GM PACK PO PRN (15:31)
[2022-04-01] MEDS ORDERED: ONDANSETRON INJ 2 MG/ML 2 ML VIAL IV PRN (15:31)
[2022-04-01] MEDS ORDERED: MAGNESIUM HYDROXIDE SUSP 30 ML UDC PO PRN (15:31)
[2022-04-01] MEDS ORDERED: ALUMINUM/MAGNESIUM SUSP 30 ML UDC PO PRN (15:31)
[2022-04-01] MEDS: *FENOFIBRATE*ORDER AWAITING ACTION SCH ×2 (17:38→22:31)
[2022-04-01] MEDS: ACETAMINOPHEN 325 MG TAB PO PRN (20:08)
[2022-04-01] MEDS: ATORVASTATIN 40 MG TAB PO SCH (20:08)
[2022-04-01] MEDS: METOPROLOL TARTRATE 50 MG TAB PO SCH (20:09)
--- NOTE | 2022-04-01 20:36 | Pharmacy Report ---
Pharmacy PK ABX Note - Date of Service April 01, 2022 - Assessment and Plan Assessment 66 year old M referred to the ED for treatment of Streptococcus bacteremia h/o aortic valve replacement in 2014, r/o endocarditis. TTE revealed no evidence of endocarditis. WARREN recommended for further evaluation. Recent treatment with doxycycline for possible tick-borne illness. Started on vancomycin and ceftriaxone IV Plan Vancomycin * Loading dose: 2000 mg IV x 1 in ED * Maintenance dose: 1250 mg IV every 18 hours * Regimen is predicted to achieve target AUC/RAUL of 400-600 mg/L.hr Ceftriaxone 2000 mg IV every 24h Pharmacy will continue to follow and will adjust dose/frequency as necessary. Thank you. Pharmacy has transitioned to AUC monitoring for vancomycin. AUC/RAUL is the preferred PK/PD target and is associated with decreased risk of nephrotoxicity compared to traditional trough targets.
[2022-04-01 21:29] LABS: Appearance Urine Clear (Clear); Bilirubin Urine Negative (Negative); Blood Urine Negative (Negative); Color Urine Yellow; Glucose Urine UA Negative (Negative); Ketones Urine Negative (Negative); Leukocyte Esterase Urine Negative (Negative); Nitrite Urine Negative (Negative); Protein Urine Negative (Negative); Specific Gravity Urine 1.014 (1.000-1.030); Urobilinogen Urine Negative (Negative); pH Urine 8.5 (4.5-7.5)
[2022-04-02] MEDS: SODIUM CHLORIDE 0.9% 1000ML 1,000 ML IV SCH ×2 (02:04→14:41)
[2022-04-02 04:20] LABS: A calco-baum cmplx NotReported Not Detected (NotDetected); Bact fragilis Not Reported Not Detected (NotDetected); C auris Not Reported Not Detected (NotDetected); Calbicans Not Reported Not Detected (NotDetected); Candida glabrata Not Reported Not Detected (NotDetected); Candida krusei Not Reported Not Detected (NotDetected); Cneoformans/gatti Not Reported Not Detected (NotDetected); Cparapsilosis Not Reported Not Detected (NotDetected); Ctropicalis Not Reported Not Detected (NotDetected); E cloacae compx Not Reported Not Detected (NotDetected); Efaecalis Not Reported Not Detected (NotDetected); Efaecium Not Reported Not Detected (NotDetected); Enterobacterales Not Reported Not Detected (NotDetected); Escherichia coli Not Reported Not Detected (NotDetected); H influenzae Not Reported Not Detected (NotDetected); K aerogenes Not Reported Not Detected (NotDetected); Koxytoca Not Reported Not Detected (NotDetected); Kpneumoniae grp Not Reported Not Detected (NotDetected); Lmonocyt Not Reported Not Detected (NotDetected); N meningitidis Not Reported Not Detected (NotDetected); P aeruginosa Not Reported Not Detected (NotDetected); Proteus spp Not Reported Not Detected (NotDetected); Salmonella spp Not Reported Not Detected (NotDetected); Smarcescens Not Reported Not Detected (NotDetected); Staph lugdunensis Not Reported Not Detected (NotDetected); Staph spp. Not Reported Not Detected (NotDetected); Staphaureus Not Reported Not Detected (NotDetected); Staphepi Not Reported Not Detected (NotDetected); Stenmaltophilia Not Reported Not Detected (NotDetected); Strep agal(GrpB) Not Reported Not Detected (NotDetected); Strep pneum Not Reported Not Detected (NotDetected); Strep pyog (GrpA) Not Reported Not Detected (NotDetected); Strep spp Not Reported DETECTED (NotDetected)
[2022-04-02 04:59] LABS: Streptococcus spp DETECTED (NotDetected)
[2022-04-02] MEDS: VANCOMYCIN HCL 1,250 MG in SODIUM CHLORIDE 0.9% 250 ML IV SCH ×2 (05:57→23:14)
[2022-04-02] MEDS ORDERED: PROPOFOL IV EMULSION 10 MG/ML 20 ML VIAL IV ONE ×3 (07:00→07:35)
[2022-04-02] MEDS ORDERED: BENZOCAINE/TETRACAIN/BUTAM 50 APPLN/5 GM CAN EXT ONE (07:12)
--- NOTE | 2022-04-02 07:15 | Anesthesiology Consultation ---
Date of Service April 02, 2022 Assessment & Plan ASA ASA3 Proposed Anesthesia Anesthesia Type: MAC Risk / Benefits Reviewed With: PT / POA / Parent / Guardian, Accepts Plan and Informed Consent Obtained History Surgery Operation Date: 04/02/22 07:15 Proposed Procedures p Transesophageal Echo w/Anesthesia - Ezra Isaac DO Height/Weight Height: 5 ft 11 in Weight: 72 kg Allergies Allergy/AdvReac Type Severity Reaction Status Date / Time No Known Allergies Allergy Verified 04/01/22 10:18 Medications Home Medications Medication Instructions Recorded Confirmed Last Taken albuterol sulfate 90 mcg/actuation 2 inh inhalation Q4H PRN Shortness 04/01/22 04/01/22 Unknown aerosol inhaler Of Breath atorvastatin 80 mg tablet 80 tab PO HS 04/01/22 04/01/22 03/31/22 fenofibrate 54 mg tablet 54 tab PO QAM 04/01/22 04/01/22 03/31/22 losartan 50 mg-hydrochlorothiazide 1 tab PO QAM 04/01/22 04/01/22 03/31/22 12.5 mg tablet metoprolol tartrate 50 mg tablet 50 tab PO BID 04/01/22 04/01/22 03/31/22 tiotropium bromide 18 mcg capsule 1 inh inhalation QAM 04/01/22 04/01/22 03/31/22 with inhalation device (Spiriva with HandiHaler) warfarin 2 mg tablet 2 tab PO HS 04/01/22 04/01/22 03/31/22 Active Medications Generic Name Dose Route Start Last Admin Trade Name Freq PRN Reason Stop Dose Admin Acetaminophen 650 mg 04/01/22 15:31 04/01/22 20:08 Acetaminophen 325 Mg Tab PO 05/01/22 15:30 650 mg Q4H PRN Administration Pain or Fever Atorvastatin Calcium 80 mg 04/01/22 21:00 04/01/22 20:08 Atorvastatin 40 Mg Tab PO 05/01/22 20:59 80 mg HS MONALISA Administration Sodium Chloride 1,000 mls @ 80 mls/hr 04/01/22 13:30 04/02/22 02:04 Nss 1000ml IV 05/01/22 13:29 80 mls/hr .[id number] MONALISA Administration Vancomycin HCl 1,250 mg/ 275 mls @ 200 mls/hr 04/02/22 06:00 04/02/22 05:57 Sodium Chloride IV 04/15/22 11:59 200 mls/hr Q18H MONALISA Administration Metoprolol Tartrate 50 mg 04/01/22 21:00 04/01/22 20:09 Metoprolol Tartrate 50 Mg Tab PO 05/01/22 20:59 50 mg BID MONALISA Administration Miscellaneous 1 each 04/01/22 16:00 04/01/22 22:31 *Fenofibrate*Order Awaiting Action N/A 05/01/22 15:59 Not Given QS MONALISA Past Medical History Medical History COPD (chronic obstructive pulmonary disease) DVT (deep venous thrombosis) History of carotid artery dissection HLD (hyperlipidemia) HTN (hypertension) ILD (interstitial lung disease) HENOK on CPAP Presence of IVC filter Pulmonary embolism Exercise / Class Metabolic Activity II 4-5 Yardwork/Stairs/Walk up hill Past Family History Family History Father Lung cancer Past Surgical History Surgical History Aortic valve replaced w/ aortic root repair 2014 [facility] History of cholecystectomy History of tonsillectomy and adenoidectomy History of vitrectomy Hx of appendectomy Hx of sinus surgery Past Anesthesia History No Hx of Anesthesia Complications and No Family Hx of Anesthesia Complications History of PONV No Hx of PONV and No Hx of Motion Sickness Social History Smoking Status: Never smoker Do You Dip or Chew Tobacco: No Hx Alcohol Use: No Alcohol type: hard liquor Hx Substance Use: No Review of Systems denies /cough/ colds/ chest pain/ SOB/ HENOK denies HENOK Physical Exam Vital Signs Last Vital Signs Temp 37.2 C 04/02/22 03:47 Pulse 77 04/02/22 03:47 Resp 18 04/02/22 03:47 BP 136/68 04/02/22 03:47 Pulse Ox 97 04/02/22 03:47 O2 Del Method 04/02/22 03:47 ENMT Mouth: no TMJ abnormality and no dentition abnormality Thyromental Distance: > or= 3.5 Finger Breadths Mallampati Class: II Neck neck extension not limited Respiratory normal respiratory effort; no respiratory distress Auscultation: lungs clear to auscultation bilaterally Cardiovascular Rate/Rhythm: regular rate and regular rhythm Neurologic moves all extremities Psychiatric Orientation: alert and oriented x 3 Testing Laboratory Results 04/01/22 09:45 04/01/22 09:45 PT 18.7 Seconds (9.0-12.0) H 04/01/22 09:45 INR 1.8 (0.9-1.1) H 04/01/22 09:45 APTT 37.0 Seconds (21.0-31.0) H 04/01/22 09:45 Urine Color Yellow 04/01/22 20:40 Urine Appearance Clear (Clear) 04/01/22 20:40 Urine pH 8.5 (4.5-7.5) H 04/01/22 20:40 Ur Specific [place] 1.014 (1.000-1.030) 04/01/22 20:40 Urine Protein Negative (Negative) 04/01/22 20:40 Urine Glucose (UA) Negative (Negative) 04/01/22 20:40 Urine Ketones Negative (Negative) 04/01/22 20:40 Urine Nitrite Negative (Negative) 04/01/22 20:40 Ur Leukocyte Esterase Negative (Negative) 04/01/22 20:40 04/01/22 09:45 Aerobic Blood Culture - Preliminary Blood Gram positive cocci in chains Anaerobic Blood Culture - Preliminary Gram positive cocci in chains 04/01/22 09:53 Aerobic Blood Culture - Preliminary Blood Gram positive cocci in chains Anaerobic Blood Culture - Preliminary Gram positive cocci in chains
--- NOTE | 2022-04-02 08:23 | Anesthesiology Progress Note ---
Date of Service April 02, 2022 Anesthesia Post Procedure Vital Signs Vital Signs: Temp Pulse Pulse Resp BP BP Pulse Ox 04/02/22 08:10 71 17 94/53 L 99 04/02/22 07:55 75 17 102/61 99 04/02/22 07:13 79 17 130/71 99 04/02/22 03:47 37.2 C 77 18 136/68 97 04/01/22 22:56 79 04/01/22 22:46 37.2 C 79 17 101/53 L 97 04/01/22 20:00 04/01/22 19:39 38.6 C H 87 17 126/73 98 04/01/22 16:48 38.4 C H 93 H 20 113/44 L 98 04/01/22 16:35 88 17 129/67 98 04/01/22 15:45 112/52 L 04/01/22 15:45 81 16 99 04/01/22 15:30 79 12 100 04/01/22 15:30 98/53 L 04/01/22 15:15 104/45 L 04/01/22 15:15 77 16 99 04/01/22 15:00 75 14 100 04/01/22 15:00 107/62 04/01/22 14:45 72 13 98 04/01/22 14:45 115/63 04/01/22 14:30 115/65 04/01/22 14:30 75 18 100 04/01/22 14:15 77 13 100 04/01/22 14:15 127/81 04/01/22 15:30 18 99 04/01/22 14:00 77 14 110/59 L 98 04/01/22 14:00 16 97 04/01/22 13:45 72 19 115/61 99 04/01/22 13:30 77 14 103/68 97 04/01/22 13:30 16 98 04/01/22 13:01 82 16 95/71 L 100 04/01/22 13:00 79 21 95/71 L 100 04/01/22 13:00 17 100 04/01/22 12:45 74 16 97/53 L 99 04/01/22 12:30 74 17 113/66 97 04/01/22 12:15 76 20 107/68 97 04/01/22 12:30 18 100 04/01/22 12:00 76 15 109/60 98 04/01/22 12:00 18 98 04/01/22 11:45 78 12 114/61 99 04/01/22 11:30 84 14 107/67 98 04/01/22 11:30 81 20 107/67 99 04/01/22 09:21 96 04/01/22 08:33 36.5 C 89 18 119/68 100 O2 Del Method 04/02/22 08:10 Room Air 04/02/22 07:55 Room Air 04/02/22 07:13 Room Air 04/02/22 03:47 Room Air 04/01/22 22:56 04/01/22 22:46 Room Air 04/01/22 20:00 Room Air 04/01/22 19:39 Room Air 04/01/22 16:48 Room Air 04/01/22 16:35 Room Air 04/01/22 15:45 04/01/22 15:45 04/01/22 15:30 04/01/22 15:30 04/01/22 15:15 04/01/22 15:15 04/01/22 15:00 04/01/22 15:00 04/01/22 14:45 04/01/22 14:45 04/01/22 14:30 04/01/22 14:30 04/01/22 14:15 04/01/22 14:15 04/01/22 15:30 04/01/22 14:00 04/01/22 14:00 Room Air 04/01/22 13:45 04/01/22 13:30 04/01/22 13:30 Room Air 04/01/22 13:01 04/01/22 13:00 04/01/22 13:00 Room Air 04/01/22 12:45 04/01/22 12:30 04/01/22 12:15 04/01/22 12:30 Room Air 04/01/22 12:00 04/01/22 12:00 Room Air 04/01/22 11:45 04/01/22 11:30 04/01/22 11:30 Room Air 04/01/22 09:21 Room Air 04/01/22 08:33 Room Air Transfer of Care Handoff Completed per policy Notes Mental Status: alert / awake / arousable and participated in evaluation Patient Amnestic to Procedure: Yes Nausea / Vomiting: adequately controlled Pain: adequately controlled Airway Patency, RR, SpO2: stable & adequate BP & HR: stable & adequate Hydration State: stable & adequate Anesthetic Complications: no major complications apparent and Pt Satisfied with anesthetic care
[2022-04-02] MEDS: UMECLIDINIUM BROMIDE 62.5MCG/BLISTER 7 PUFFS/INHALER INH SCH (08:36)
[2022-04-02] MEDS: *FENOFIBRATE*ORDER AWAITING ACTION SCH ×2 (08:36→16:58)
[2022-04-02] MEDS: METOPROLOL TARTRATE 50 MG TAB PO SCH ×2 (08:36→20:30)
[2022-04-02 09:27] LABS: Basophils # (auto) 0.07 K/uL (0-0.2); Basophils % (auto) 0.6 %; Eosinophils # (auto) 0.08 K/uL (0-0.50); Eosinophils % (auto) 0.7 %; Hematocrit (blood only) 29.9 % (40.1-51.0); Hemoglobin 10.3 g/dl (14.0-18.0); Immature Granulocytes # (auto) 0.13 K/uL (0.00-0.02); Immature Granulocytes % (auto) 1.1 %; Lymphocytes # (auto) 1.77 K/uL (1.2-3.4); Lymphocytes % (auto) 14.9 %; Mean Corpuscular Hemoglobin 31.7 pg (25.0-34.0); Mean Corpuscular Hgb Conc 34.4 g/dL (32.0-36.0); Mean Platelet Volume 10.1 fL (9.4-12.4); Monocytes # (auto) 0.82 K/uL (0.24-0.82); Monocytes % (auto) 6.9 %; Neutrophils % (auto) 75.8 %; Platelet Count 334 K/uL (130-400); RDW Coefficient of Variation 12.8 % (11.5-14.5); RDW Standard Deviation 42.4 fL (36.4-46.3); Red Blood Count 3.25 M/uL (4.63-6.08); White Blood Count 11.87 K/ul (4.8-10.8)
--- NOTE | 2022-04-02 09:34 | Cardiology Progress Note ---
Date of Service April 02, 2022 Assessment & Plan (1) Endocarditis of prosthetic aortic valve: (2) Bacteremia due to Streptococcus: (3) S/P AVR (aortic valve replacement): Plan Transesophageal echocardiogram demonstrates bioprosthetic aortic valve endocarditis. Blood culture growing gram-positive cocci in chains. Continue broad spectrum antibiotics. Await culture sensitivities. Warfarin held due to acute bacterial endocarditis and concerns regarding bleeding complications and/or potential for ischemic stroke with hemorrhagic transformation. Patient carries history of hypercoagulable state and unprovoked DVT. Recommend continue to hold warfarin and initiate IV heparin. Patient without any neurologic findings to suggest CVA/TIA. Infectious disease consultation pending Admission and Anticipated Discharge Date Admission Date: April 01, 2022 Subjective Patient seen and examined. Transesophageal echocardiogram performed in a.m. without complication. Evidence of bioprosthetic aortic valve bacterial endocarditis. Blood cultures positive dated 04/01/2022 with gram-positive cocci in chains. He is afebrile. Denies chest pain or palpitations. Sinus rhythm on telemetry. Review of Systems Review of Systems: All systems reviewed & are unremarkable except as noted in Subjective Physical Exam Constitutional: well nourished; no acute distress Respiratory: normal respiratory effort, lungs clear to auscultation Cardiovascular: Rate/Rhythm: regular rate and regular rhythm Heart Sounds: normal S1, normal S2 and + murmur (1-2/6 systolic ejection murmur heard best at the right second intercostal s); no cardiac rub Vessels: radial pulses present; no JVD and no carotid bruit Extremities: no edema Gastrointestinal (Abdomen): Inspection/Auscultation: abdomen normal to i nspection and normal bowel sounds; abdomen not distended Percussion/Palpation: abdomen soft; abdomen nontender, no guarding and abdomen not rigid Neurologic: CN's II-XI intact bilaterally and moves all extremities; no focal motor deficits Psychiatric: A+Ox3, euthymic affect Results & Data ([facility]) Vital Signs (Past 12 Hours) Vital Signs Temp Pulse Pulse Resp BP Pulse Ox O2 Del Method 04/02/22 08:10 71 17 94/53 L 99 Room Air 04/02/22 07:55 75 17 102/61 99 Room Air 04/02/22 07:13 79 17 130/71 99 Room Air 04/02/22 03:47 37.2 C 77 18 136/68 97 Room Air 04/01/22 22:56 79 04/01/22 22:46 37.2 C 79 17 101/53 L 97 Room Air
[2022-04-02 09:38] LABS: INR 1.3 (0.9-1.1); Prothrombin Time 14.1 Seconds (9.0-12.0)
[2022-04-02 09:55] LABS: Albumin Level 3.3 gm/dl (3.4-5.0); BUN Creatinine Ratio 13.5 (10-20); Bilirubin,Total 0.9 mg/dl (0.2-1.0); C Reactive Protein 4.85 mg/dl (0-0.5); Calcium 8.9 mg/dl (8.5-10.1); Creatinine Clr Calc Pharmacy 69.2 ml/min; Est GFR (African American) 85.1 ml/min; Est GFR (Non-African American) 73.4 ml/min; Globulin 3.3 gm/dl (2.5-4.0); Magnesium 1.6 mg/dl (1.7-2.4); Potassium 3.8 mmol/L (3.5-5.1); Total Protein 6.6 gm/dl (6.0-8.3)
[2022-04-02] MEDS: cefTRIAXone SODIUM 2,000 MG in DEXTROSE 5% 50 ML IV SCH (12:07)
--- NOTE | 2022-04-02 12:57 | Hospitalist Progress Note ---
Date of Service April 02, 2022 Assessment & Plan (1) Bacteremia: (2) Subtherapeutic international normalized ratio (INR): (3) Hyponatremia: (4) Anemia: (5) Left lumbar radiculopathy: Plan This is a 66 yr old M who has significant past medical history of COPD, interstitial lung disease, HTN, HLD, history of DVT, HENOK on CPAP, history of carotid artery dissection, thrombophilia, long-term anticoagulation with Coumadin, history of bovine aortic valve replacement with aortic root repair in 2014 at [facility], history of IVC filter placement who presents to ED at the referral of PCP secondary to positive blood cultures along with fever and chills off and on x2 months. Aortic Valve Endocarditis Bacteremia continue vancomycin, ceftriaxone ID consult pending WARREN today demonstrated 0.5cm x 0.5cm vegetation on aortic valve annulus Hx of Bovine AVR with aortic root repair in 2014 at [facility] HTN HLD continue metoprolol hold losartan/hctz. BP normotensive currently continue statin HX of DVT/PE Presence of IVC filter Coumadin held Start heparin drip, no bolus Anemia hgb 11.8 Outpatient anemia panel revealed iron 35, transferrin saturation 14, ferritin 720, B12 379, folic acid 18.4 Possibly in setting of acute illness given prolonged state and adequate iron stores No signs or symptoms of bleeding, will monitor closely Hyponatremia Sodium 133--> 134 HCTZ held, sodium improved L lower back pain Due to back sprain/injury while fishing MRI negative for diskitis conservative management, tylenol PRN HENOK of CPAP CPAP at HS COPD ILD continue home inhalers no acute exac Alcohol abuse 14 drinks/wk last drink last night place on awss scale and prn protocol DVT ppx: heparin drip Admission and Anticipated Discharge Date Admission Date: April 01, 2022 Subjective went for WARREN today which showed AV vegetation Remains afebrile No issues overnight Physical Exam Physical Exam: Pleasant, comfortable, no acute distress Respiratory: breathing comfortably on room air, no wheezing/rhonchi/rales Cardiovascular: regular rate and rhythm, no murmurs/rubs/gallops Gastrointestinal (Abdomen): soft, non tender, non distended Musculoskeletal: No edema, no cyanosis or clubbing Neurologic: awake, alert, spontaneously moving extremities Results & Data Results & Data ([facility]) Vital Signs (Past 12 Hours) Vital Signs Temp Pulse Resp BP Pulse Ox O2 Del Method 04/02/22 12:32 37.0 C 72 20 125/73 98 Room Air 04/02/22 08:10 71 17 94/53 L 99 Room Air 04/02/22 07:55 75 17 102/61 99 Room Air 04/02/22 07:13 79 17 130/71 99 Room Air 04/02/22 03:47 37.2 C 77 18 136/68 97 Room Air Laboratory Results Short CBC 04/02/22 Range/Units 08:48 WBC 11.87 H (4.8-10.8) K/ul Hgb 10.3 L (14.0-18.0) g/dl Hct 29.9 L (40.1-51.0) % Plt Count 334 (130-400) K/uL BMP 04/02/22 08:48 Sodium 134 L Potassium 3.8 Chloride 105 Carbon Dioxide 23 BUN 14 Creatinine 1.04 Glucose 99 Calcium 8.9 Liver Function 04/02/22 Range/Units 08:48 Total Bilirubin 0.9 (0.2-1.0) mg/dl AST 13 (13-39) U/L ALT 10 (7-52) U/L Alkaline Phosphatase 63 (34-104) U/L Albumin 3.3 L (3.4-5.0) gm/dl Urine 04/01/22 Range/Units 20:40 Urine Color Yellow Urine Appearance Clear (Clear) Urine pH 8.5 H (4.5-7.5) Ur Specific [place] 1.014 (1.000-1.030) Urine Protein Negative (Negative) Urine Glucose (UA) Negative (Negative) Medications Administered Current Inpatient Medications Acetaminophen (Acetaminophen 325 Mg Tab) 650 mg PO Q4H PRN PRN Reason: Pain or Fever Stop: 05/01/22 15:30 Last Admin: 04/01/22 20:08 Dose: 650 mg Al Hydrox/Mg Hydrox/Simethicone (Aluminum/Magnesium Susp 30 Ml Udc) 15 ml PO Q4H PRN PRN Reason: Dyspepsia Stop: 05/01/22 15:30 Albuterol (Albuterol Hfa 8 Gm Inhaler) 2 puffs INH Q4H PRN PRN Reason: Shortness Of Breath Stop: 05/01/22 15:30 Atorvastatin Calcium (Atorvastatin 40 Mg Tab) 80 mg PO HS MONALISA Stop: 05/01/22 20:59 Last Admin: 04/01/22 20:08 Dose: 80 mg Sodium Chloride (Nss 1000ml) 1,000 mls @ 80 mls/hr IV .[id number] [facility] Stop: 05/01/22 13:29 Last Admin: 04/02/22 02:04 Dose: 80 mls/hr Ceftriaxone Sodium 2,000 mg/ (Dextrose) 70 mls @ 100 mls/hr IV Q24H [facility]; Protocol Stop: 04/15/22 11:59 Last Infusion: 04/02/22 12:41 Dose: Infused Vancomycin HCl 1,250 mg/ (Sodium Chloride) 275 mls @ 200 mls/hr IV Q18H [facility] Stop: 04/15/22 11:59 Last Infusion: 04/02/22 07:37 Dose: Infused Heparin Sodium/Dextrose (Heparin Sodium/Dextrose) 25,000 units in 500 mls @ 0.02 mls/hr IV .Q24H [facility]; Protocol Stop: 05/02/22 12:59 Lorazepam (Lorazepam 1 Mg Tab) 1 - 3 mg PO UD PRN; Protocol PRN Reason: EtoH Withdrawal AWSS 6-10+ Stop: 05/01/22 15:30 Magnesium Hydroxide (Magnesium Hydroxide Susp 30 Ml Udc) 30 ml PO Q12H PRN PRN Reason: Constipation Stop: 05/01/22 15:30 Metoprolol Tartrate (Metoprolol Tartrate 50 Mg Tab) 50 mg PO BID [facility] Stop: 05/01/22 20:59 Last Admin: 04/02/22 08:36 Dose: 50 mg Miscellaneous (*Fenofibrate*Order Awaiting Action) 1 each N/A QS [facility] Stop: 05/01/22 15:59 Last Admin: 04/02/22 08:36 Dose: 1 each Miscellaneous Information (Vancomycin Consult Active) 1 each N/A UD PRN PRN Reason: Consult Stop: 05/01/22 09:21 Ondansetron HCl (Ondansetron Inj 2 Mg/Ml 2 Ml Vial) 4 mg IV Q6H PRN PRN Reason: Nausea Stop: 05/01/22 15:30 Polyethylene Glycol (Polyethylene (Miralax) 17 Gm Pack) 17 gm PO DAILY PRN PRN Reason: Constipation Stop: 05/01/22 15:30 Umeclidinium Sandwich (Umeclidinium Sandwich 62.5mcg/Blister 7 Puffs/Inhaler) 1 puffs INH QAM [facility]; Protocol Stop: 05/02/22 08:59 Last Admin: 04/02/22 08:36 Dose: 1 puffs Warfarin Sodium (Warfarin Sod 2 Mg Tab) 2 mg PO DAILY@1830 [facility] Stop: 05/01/22 18:29 (1) Anemia Anemia type: unspecified type Qualified Code(s): D64.9 - Anemia, unspecified
[2022-04-02] MEDS ORDERED: Heparin IV Adult Wt-Based Standard *NO* Bolus Protocol IV SCH (13:15)
[2022-04-02] MEDS: HEPARIN SODIUM/DEXTROSE 25,000 UNITS/500 ML BAG IV SCH (14:41)
[2022-04-02] MEDS: ACETAMINOPHEN 325 MG TAB PO PRN (20:30)
[2022-04-02] MEDS: ATORVASTATIN 40 MG TAB PO SCH (20:31)
[2022-04-02 21:10] LABS: Partial Thromboplastin Ratio 1.7; Partial Thromboplastin Time 47.6 Seconds (21.0-31.0)
[2022-04-03] MEDS: *FENOFIBRATE*ORDER AWAITING ACTION SCH ×4 (00:04→21:14)
[2022-04-03] MEDS: SODIUM CHLORIDE 0.9% 1000ML 1,000 ML IV SCH ×3 (03:22→16:32)
[2022-04-03] MEDS: UMECLIDINIUM BROMIDE 62.5MCG/BLISTER 7 PUFFS/INHALER INH SCH (08:04)
[2022-04-03] MEDS: METOPROLOL TARTRATE 50 MG TAB PO SCH ×2 (08:04→21:05)
[2022-04-03] MEDS: HEPARIN SODIUM/DEXTROSE 25,000 UNITS/500 ML BAG IV SCH (08:05)
[2022-04-03] MEDS ORDERED: MAGNESIUM SULFATE / D5W 1 GM/100 ML BAG IV ONE (08:15)
[2022-04-03 08:26] LABS: Hematocrit (blood only) 31.1 % (40.1-51.0); Hemoglobin 10.4 g/dl (14.0-18.0); Mean Corpuscular Hemoglobin 31.4 pg (25.0-34.0); Mean Corpuscular Hgb Conc 33.4 g/dL (32.0-36.0); Mean Platelet Volume 10.3 fL (9.4-12.4); Platelet Count 335 K/uL (130-400); RDW Coefficient of Variation 12.6 % (11.5-14.5); RDW Standard Deviation 43.8 fL (36.4-46.3); Red Blood Count 3.31 M/uL (4.63-6.08); White Blood Count 9.65 K/ul (4.8-10.8)
[2022-04-03 08:37] LABS: INR 1.2 (0.9-1.1)
[2022-04-03 08:58] LABS: BUN Creatinine Ratio 12.8 (10-20); Calcium 8.7 mg/dl (8.5-10.1); Creatinine Clr Calc Pharmacy 79.7 ml/min; Est GFR (African American) 96.2 ml/min; Potassium 3.5 mmol/L (3.5-5.1)
--- NOTE | 2022-04-03 11:33 | Cardiology Progress Note ---
Date of Service April 03, 2022 Assessment & Plan (1) Endocarditis of prosthetic aortic valve: (2) Bacteremia due to Streptococcus: (3) S/P AVR (aortic valve replacement): Plan Transesophageal echocardiogram demonstrates bioprosthetic aortic valve endocarditis. Blood culture growing gram-positive cocci in chains consistent with strep bacteremia. Awaiting ID consultation for formal plan Continue to hold warfarin for time being IV heparin initiated with plans need for either Tylenol catheter or PICC line Losartan/hydrochlorothiazide held on presentation no need to initiate at this time but will need to follow I's and O's closely receiving large-volume fluid with antibiotics Admission and Anticipated Discharge Date Admission Date: April 01, 2022 Subjective Was seen and examined, chart, medications, telemetry reviewed. No acute complaints overnight. No dizziness lightheadedness syncope near syncope no chest pains or discomfort. No fevers or chills. No abdominal or back pain. No neurologic complaints Review of Systems Review of Systems: All systems reviewed & are unremarkable except as noted in Subjective Physical Exam Constitutional: well nourished; no acute distress Neck: trachea midline, no thyromegaly Respiratory: normal respiratory effort, lungs clear to auscultation Cardiovascular: Rate/Rhythm: regular rate and regular rhythm Heart Sounds: normal S1, normal S2 and + murmur (1-2/6 systolic ejection murmur heard best at the right second intercostal s); no cardiac rub Vessels: radial pulses present; no JVD and no carotid bruit Extremities: no edema Gastrointestinal (Abdomen): Inspection/Auscultation: abdomen normal to inspection and normal bowel sounds; abdomen not distended Percussion/Palpation: abdomen soft; abdomen nontender, no guarding and abdomen not rigid Skin: No lesions hands and feet, embolic phenomena Neurologic: CN's II-XI intact bilaterally and moves all extremities; no focal motor deficits Psychiatric: A+Ox3, euthymic affect Results & Data ([facility]) Vital Signs (Past 12 Hours) Vital Signs Temp Pulse Pulse Resp BP BP Pulse Ox 04/03/22 08:18 36.7 C 78 19 105/61 97 04/03/22 03:00 36.3 C L 62 18 100/61 98 04/02/22 23:59 69 04/02/22 23:59 37.0 C 67 16 124/66 96 O2 Del Method 04/03/22 08:18 Room Air 04/03/22 03:00 04/02/22 23:59 04/02/22 23:59 Laboratory Results Laboratory Results - last 24 hr 04/02/22 04/02/22 04/03/22 16:43 20:36 07:33 WBC RBC Hgb Hct MCV MCH MCHC RDW Std Deviation RDW Coeff of Lizbeth Plt Count MPV PT 13.0 H INR 1.2 H APTT 47.6 H* PTT Ratio 1.7 Sodium Potassium Chloride Carbon Dioxide Anion Gap BUN Creatinine Est Cr Clr Drug Dosing Est GFR ( Amer) Est GFR (Non-Af Amer) BUN/Creatinine Ratio Glucose POC Glucose 109 H Calcium Vancomycin Trough 04/03/22 04/03/22 04/03/22 07:33 07:33 09:23 WBC 9.65 RBC 3.31 L Hgb 10.4 L Hct 31.1 L MCV 94.0 MCH 31.4 MCHC 33.4 RDW Std Deviation 43.8 RDW Coeff of Lizbeth 12.6 Plt Count 335 MPV 10.3 PT INR APTT PTT Ratio Sodium 137 Potassium 3.5 Chloride 108 H Carbon Dioxide 24 Anion Gap 5 BUN 12 Creatinine 0.94 Est Cr Clr Drug Dosing 79.7 Est GFR ( Amer) 96.2 Est GFR (Non-Af Amer) 83.0 BUN/Creatinine Ratio 12.8 Glucose 105 H POC Glucose Calcium 8.7 Vancomycin Trough 11.6
[2022-04-03] MEDS ORDERED: POTASSIUM CHLORIDE CRTAB 20 MEQ TABCR PO ONE (11:48)
[2022-04-03] MEDS: cefTRIAXone SODIUM 2,000 MG in DEXTROSE 5% 50 ML IV SCH (11:55)
--- NOTE | 2022-04-03 12:18 | Pharmacy Report ---
Pharmacy PK ABX Note - Date of Service April 03, 2022 - Assessment and Plan Assessment 04/03: * WARREN demonstrated bioprosthetic aortic valve endocarditis. Initial blood cultures growing alpha strep not enterococcus. Repeat blood cultures no growth. Await sensitivities to assess if current regimen can be tailored further. ID is consulted. * Random order was leveled this morning predicting an AUC below target range. Will increase dose. Repeat level in 24-48 hours or as clinically indicated. 04/01 66 year old M referred to the ED for treatment of Streptococcus bacteremia h/o aortic valve replacement in 2014, r/o endocarditis. TTE revealed no evidence of endocarditis. WARREN recommended for further evaluation. Recent treatment with doxycycline for possible tick-borne illness. Started on vancomycin and ceftriaxone IV Plan Vancomycin * Maintenance dose: increase to 1250 mg IV every 12 hours * Regimen is predicted to achieve target AUC/ARUL of 400-600 mg/L.hr Ceftriaxone 2000 mg IV every 24h Pharmacy will continue to follow and will adjust dose/frequency as necessary. Thank you. Pharmacy has transitioned to AUC monitoring for vancomycin. AUC/RAUL is the preferred PK/PD target and is associated with decreased risk of nephrotoxicity compared to traditional trough targets.
[2022-04-03] MEDS ORDERED: VANCOMYCIN HCL 1,250 MG in SODIUM CHLORIDE 0.9% 250 ML IV SCH (12:30)
--- NOTE | 2022-04-03 13:25 | Hospitalist Progress Note ---
Date of Service April 03, 2022 Assessment & Plan (1) Bacteremia: (2) Subtherapeutic international normalized ratio (INR): (3) Hyponatremia: (4) Anemia: (5) Left lumbar radiculopathy: Plan This is a 66 yr old M who has significant past medical history of COPD, interstitial lung disease, HTN, HLD, history of DVT, HENOK on CPAP, history of carotid artery dissection, thrombophilia, long-term anticoagulation with Coumadin, history of bovine aortic valve replacement with aortic root repair in 2014 at [facility], history of IVC filter placement who presents to ED at the referral of PCP secondary to positive blood cultures along with fever and chills off and on x2 months. Aortic Valve Endocarditis Strep Bacteremia continue ceftriaxone, discontinue vancomcyin ID consult pending WARREN 04/02 demonstrated 0.5cm x 0.5cm vegetation on aortic valve annulus Hx of Bovine AVR with aortic root repair in 2014 at [facility] HTN HLD continue metoprolol hold losartan/hctz. BP normotensive currently continue statin HX of DVT/PE Presence of IVC filter Coumadin held continue heparin drip Anemia hgb 11.8 Outpatient anemia panel revealed iron 35, transferrin saturation 14, ferritin 720, B12 379, folic acid 18.4 Possibly in setting of acute illness given prolonged state and adequate iron stores No signs or symptoms of bleeding, will monitor closely Hyponatremia Sodium 133--> 134 HCTZ held, sodium improved L lower back pain Due to back sprain/injury while fishing MRI negative for diskitis conservative management, tylenol PRN HENOK of CPAP CPAP at HS COPD ILD continue home inhalers no acute exac Alcohol abuse 14 drinks/wk last drink last night place on awss scale and prn protocol DVT ppx: heparin drip Admission and Anticipated Discharge Date Admission Date: April 01, 2022 Subjective Feels well. No events overnight. Remains afebrile Physical Exam Physical Exam: Appears well. Moderately nourished. No acute distress Respiratory: breathing comfortably on room air. No wheezing/rhonchi/rales Cardiovascular: regular rate and rhythm, no murmurs/rubs/gallops Gastrointestinal (Abdomen): soft, non tender, non distended Musculoskeletal: No edema Neurologic: awake, alert, spontaneously moving extremities Results & Data Results & Data ([facility]) Vital Signs (Past 12 Hours) Vital Signs Temp Pulse Resp BP BP Pulse Ox O2 Del Method 04/03/22 12:01 36.7 C 77 16 113/68 99 Room Air 04/03/22 08:18 36.7 C 78 19 105/61 97 Room Air 04/03/22 03:00 36.3 C L 62 18 100/61 98 Laboratory Results Short CBC 04/03/22 Range/Units 07:33 WBC 9.65 (4.8-10.8) K/ul Hgb 10.4 L (14.0-18.0) g/dl Hct 31.1 L (40.1-51.0) % Plt Count 335 (130-400) K/uL BMP 04/03/22 07:33 Sodium 137 Potassium 3.5 Chloride 108 H Carbon Dioxide 24 BUN 12 Creatinine 0.94 Glucose 105 H Calcium 8.7 Medications Administered Current Inpatient Medications Acetaminophen (Acetaminophen 325 Mg Tab) 650 mg PO Q4H PRN PRN Reason: Pain or Fever Stop: 05/01/22 15:30 Last Admin: 04/02/22 20:30 Dose: 650 mg Al Hydrox/Mg Hydrox/Simethicone (Aluminum/Magnesium Susp 30 Ml Udc) 15 ml PO Q4H PRN PRN Reason: Dyspepsia Stop: 05/01/22 15:30 Albuterol (Albuterol Hfa 8 Gm Inhaler) 2 puffs INH Q4H PRN PRN Reason: Shortness Of Breath Stop: 05/01/22 15:30 Atorvastatin Calcium (Atorvastatin 40 Mg Tab) 80 mg PO HS COUNTS INCLUDE 234 BEDS AT THE [facility] Stop: 05/01/22 20:59 Last Admin: 04/02/22 20:31 Dose: 80 mg Sodium Chloride (Nss 1000ml) 1,000 mls @ 80 mls/hr IV .[id number] MONALISA Stop: 05/01/22 13:29 Last Admin: 04/03/22 03:22 Dose: 80 mls/hr Ceftriaxone Sodium 2,000 mg/ (Dextrose) 70 mls @ 100 mls/hr IV Q24H MONALISA; Protocol Stop: 04/15/22 11:59 Last Infusion: 04/03/22 13:02 Dose: Infused Heparin Sodium/Dextrose (Heparin Sodium/Dextrose) 25,000 units in 500 mls @ 26 mls/hr IV .[id number] MONALISA; Protocol Stop: 05/02/22 12:59 Last Admin: 04/03/22 08:05 Dose: 1,300 units/hr, 26 mls/hr Lorazepam (Lorazepam 1 Mg Tab) 1 - 3 mg PO UD PRN; Protocol PRN Reason: EtoH Withdrawal AWSS 6-10+ Stop: 05/01/22 15:30 Magnesium Hydroxide (Magnesium Hydroxide Susp 30 Ml Udc) 30 ml PO Q12H PRN PRN Reason: Constipation Stop: 05/01/22 15:30 Metoprolol Tartrate (Metoprolol Tartrate 50 Mg Tab) 50 mg PO BID COUNTS INCLUDE 234 BEDS AT THE [facility] Stop: 05/01/22 20:59 Last Admin: 04/03/22 08:04 Dose: 50 mg Miscellaneous (*Fenofibrate*Order Awaiting Action) 1 each N/A QS COUNTS INCLUDE 234 BEDS AT THE [facility] Stop: 05/01/22 15:59 Last Admin: 04/03/22 08:03 Dose: 1 each Ondansetron HCl (Ondansetron Inj 2 Mg/Ml 2 Ml Vial) 4 mg IV Q6H PRN PRN Reason: Nausea Stop: 05/01/22 15:30 Polyethylene Glycol (Polyethylene (Miralax) 17 Gm Pack) 17 gm PO DAILY PRN PRN Reason: Constipation Stop: 05/01/22 15:30 Umeclidinium [place] (Umeclidinium [place] 62.5mcg/Blister 7 Puffs/Inhaler) [facility] [place] Stop: 05/02/22 08:59 Last Admin: 04/03/22 08:04 Dose: 1 puffs Warfarin Sodium (Warfarin Sod 2 Mg Tab) 2 mg PO DAILY@1830 COUNTS INCLUDE 234 BEDS AT THE [facility] Stop: 05/01/22 18:29 (1) Anemia Anemia type: unspecified type Qualified Code(s): D64.9 - Anemia, unspecified
[2022-04-03] MEDS ORDERED: VANCOMYCIN LEVEL ONE (17:30)
[2022-04-03 17:48] LABS: Partial Thromboplastin Ratio 2.1
[2022-04-03 17:53] LABS: Partial Thromboplastin Time 58.4 Seconds (21.0-31.0)
[2022-04-03] MEDS: ATORVASTATIN 40 MG TAB PO SCH (21:05)
[2022-04-03 23:01] LABS: A calco-baum cmplx NotReported Not Detected (NotDetected); Bact fragilis Not Reported Not Detected (NotDetected); C auris Not Reported Not Detected (NotDetected); Calbicans Not Reported Not Detected (NotDetected); Candida glabrata Not Reported Not Detected (NotDetected); Candida krusei Not Reported Not Detected (NotDetected); Cneoformans/gatti Not Reported Not Detected (NotDetected); Cparapsilosis Not Reported Not Detected (NotDetected); Ctropicalis Not Reported Not Detected (NotDetected); E cloacae compx Not Reported Not Detected (NotDetected); Efaecalis Not Reported Not Detected (NotDetected); Efaecium Not Reported Not Detected (NotDetected); Enterobacterales Not Reported Not Detected (NotDetected); Escherichia coli Not Reported Not Detected (NotDetected); H influenzae Not Reported Not Detected (NotDetected); K aerogenes Not Reported Not Detected (NotDetected); Koxytoca Not Reported Not Detected (NotDetected); Kpneumoniae grp Not Reported Not Detected (NotDetected); Lmonocyt Not Reported Not Detected (NotDetected); N meningitidis Not Reported Not Detected (NotDetected); P aeruginosa Not Reported Not Detected (NotDetected); Proteus spp Not Reported Not Detected (NotDetected); Salmonella spp Not Reported Not Detected (NotDetected); Smarcescens Not Reported Not Detected (NotDetected); Staph lugdunensis Not Reported Not Detected (NotDetected); Staph spp. Not Reported Not Detected (NotDetected); Staphaureus Not Reported Not Detected (NotDetected); Staphepi Not Reported Not Detected (NotDetected); Stenmaltophilia Not Reported Not Detected (NotDetected); Strep agal(GrpB) Not Reported Not Detected (NotDetected); Strep pneum Not Reported Not Detected (NotDetected); Strep pyog (GrpA) Not Reported Not Detected (NotDetected); Strep spp Not Reported DETECTED (NotDetected)
[2022-04-03 23:09] LABS: Streptococcus spp DETECTED (NotDetected)
[2022-04-04] MEDS: SODIUM CHLORIDE 0.9% 1000ML 1,000 ML IV SCH ×2 (04:02→17:08)
[2022-04-04] MEDS: HEPARIN SODIUM/DEXTROSE 25,000 UNITS/500 ML BAG IV SCH ×2 (04:03→23:20)
[2022-04-04 07:22] LABS: INR 1.1 (0.9-1.1); Prothrombin Time 11.9 Seconds (9.0-12.0)
[2022-04-04 08:02] LABS: Partial Thromboplastin Ratio 2.2
[2022-04-04 08:14] LABS: Partial Thromboplastin Time 59.8 Seconds (21.0-31.0)
[2022-04-04] MEDS: *FENOFIBRATE*ORDER AWAITING ACTION SCH ×2 (08:30→15:22)
[2022-04-04] MEDS: UMECLIDINIUM BROMIDE 62.5MCG/BLISTER 7 PUFFS/INHALER INH SCH (08:31)
[2022-04-04] MEDS: METOPROLOL TARTRATE 50 MG TAB PO SCH ×2 (08:31→20:03)
[2022-04-04] MEDS: cefTRIAXone SODIUM 2,000 MG in DEXTROSE 5% 50 ML IV SCH (12:30)
--- NOTE | 2022-04-04 12:34 | Cardiology Progress Note ---
Date of Service April 04, 2022 Assessment & Plan (1) Endocarditis of prosthetic aortic valve: (2) Bacteremia due to Streptococcus: (3) S/P AVR (aortic valve replacement): Plan Transesophageal echocardiogram demonstrates bioprosthetic aortic valve endocarditis. Blood culture growing gram-positive cocci in chains consistent with strep bacteremia. Awaiting ID consultation for formal plan Will anticipate extended antibiotic course with likely need for PICC line. If no surgical procedure planned would resume warfarin Continue current therapies with repeat echocardiogram prior to hospital discharge May need to resume low-dose diuretic this admission no signs of volume overload on exam Continue I's and O's and daily weight Admission and Anticipated Discharge Date Admission Date: April 01, 2022 Subjective Patient was seen and examined, chart, medications, telemetry reviewed. No acute complaints, afebrile. No chest pains or discomfort no dizziness. No neurologic complaints. No bleeding on anticoagulation Review of Systems Review of Systems: All systems reviewed & are unremarkable except as noted in Subjective Physical Exam Constitutional: well nourished; no acute distress Neck: trachea midline, no thyromegaly Respiratory: normal respiratory effort, lungs clear to auscultation Cardiovascular: Rate/Rhythm: regular rate and regular rhythm Heart Sounds: normal S1, normal S2 and + murmur (1-2/6 systolic ejection murmur heard best at the right second intercostal s); no cardiac rub Vessels: radial pulses present; no JVD and no carotid bruit Extremities: no edema Gastrointestinal (Abdomen): Inspection/Auscultation: abdomen normal to inspection and normal bowel sounds; abdomen not distended Percussion/Palpation: abdomen soft; abdomen nontender, no guarding and abdomen not rigid Neurologic: CN's II-XI intact bilaterally and moves all extremities; no focal motor deficits Psychiatric: A+Ox3, euthymic affect Results & Data ([facility]) Vital Signs (Past 12 Hours) Vital Signs Temp Pulse Resp BP BP Pulse Ox O2 Del Method 04/04/22 11:04 37.0 C 62 18 129/71 99 Room Air 04/04/22 07:18 37.0 C 65 18 121/69 98 Room Air 04/04/22 03:34 37 C 63 14 110/53 L 96 Room Air Laboratory Results Laboratory Results - last 24 hr 04/02/22 04/03/22 04/04/22 08:48 16:46 06:33 PT 11.9 INR 1.1 APTT 58.4 H* PTT Ratio 2.1 Streptococcus sp PCR DETECTED A Bld Cult ID Panel PCR See PCR Comment 04/04/22 06:33 PT INR APTT 59.8 H* PTT Ratio 2.2 Streptococcus sp PCR Bld Cult ID Panel PCR
--- NOTE | 2022-04-04 13:51 | Hospitalist Progress Note ---
Date of Service April 04, 2022 Assessment & Plan (1) Bacteremia: (2) Subtherapeutic international normalized ratio (INR): (3) Hyponatremia: (4) Anemia: (5) Left lumbar radiculopathy: Plan This is a 66 yr old M who has significant past medical history of COPD, interstitial lung disease, HTN, HLD, history of DVT, HENOK on CPAP, history of carotid artery dissection, thrombophilia, long-term anticoagulation with Coumadin, history of bovine aortic valve replacement with aortic root repair in 2014 at [facility], history of IVC filter placement who presents to ED at the referral of PCP secondary to positive blood cultures along with fever and chills off and on x2 months. Aortic Valve Endocarditis Strep Bacteremia continue ceftriaxone, discontinue vancomcyin ID consult pending WARREN 04/02 demonstrated 0.5cm x 0.5cm vegetation on aortic valve annulus Blood cultures from 04/02 1 of 2 sets now positive. Will repeat blood cultures again today. PICC line can be placed once blood cultures negative x 48 hours. Hx of Bovine AVR with aortic root repair in 2014 at [facility] HTN HLD continue metoprolol hold losartan/hctz. BP normotensive currently continue statin HX of DVT/PE Presence of IVC filter continue heparin drip. Discussed with Cardiology, with no plans for surgery (patient does not need tunneled catheter), we can resume coumadin Anemia hgb 11.8 Outpatient anemia panel revealed iron 35, transferrin saturation 14, ferritin 720, B12 379, folic acid 18.4 Possibly in setting of acute illness given prolonged state and adequate iron stores No signs or symptoms of bleeding, will monitor closely Hyponatremia Sodium 133--> 134 HCTZ held, sodium improved L lower back pain Due to back sprain/injury while fishing MRI negative for diskitis conservative management, tylenol PRN HENOK of CPAP CPAP at HS COPD ILD continue home inhalers no acute exac Alcohol abuse 14 drinks/wk last drink last night place on awss scale and prn protocol DVT ppx: heparin drip Admission and Anticipated Discharge Date Admission Date: April 01, 2022 Subjective Feels well. Remains afebrile. Denies chest pain or shortness of breath Physical Exam Physical Exam: No acute distress, non toxic, pleasant and comfortable Respiratory: breathing comfortably on room air, no wheezing/rhonchi/rales Cardiovascular: regular rate and rhythm, faint systolic murmur Gastrointestinal (Abdomen): soft, non tender, non distended Musculoskeletal: no edema, no cyanosis or clubbing Skin: no rash, no redness, no ulcers noted Neurologic: awake, alert, spontaneously moving extremities Results & Data Results & Data ([facility]) Vital Signs (Past 12 Hours) Vital Signs Temp Pulse Resp BP BP Pulse Ox O2 Del Method 04/04/22 11:04 37.0 C 62 18 129/71 99 Room Air 04/04/22 07:18 37.0 C 65 18 121/69 98 Room Air 04/04/22 03:34 37 C 63 14 110/53 L 96 Room Air Medications Administered Current Inpatient Medications Acetaminophen (Acetaminophen 325 Mg Tab) 650 mg PO Q4H PRN PRN Reason: Pain or Fever Stop: 05/01/22 15:30 Last Admin: 04/02/22 20:30 Dose: 650 mg Al Hydrox/Mg Hydrox/Simethicone (Aluminum/Magnesium Susp 30 Ml Udc) 15 ml PO Q4H PRN PRN Reason: Dyspepsia Stop: 05/01/22 15:30 Albuterol (Albuterol Hfa 8 Gm Inhaler) 2 puffs INH Q4H PRN PRN Reason: Shortness Of Breath Stop: 05/01/22 15:30 Atorvastatin Calcium (Atorvastatin 40 Mg Tab) 80 mg PO HS [facility]AL[facility] Stop: 05/01/22 20:59 Last Admin: 04/03/22 21:05 Dose: 80 mg Sodium Chloride (Nss 1000ml) 1,000 mls @ 80 mls/hr IV .[id number] [facility]ALISA Stop: 05/01/22 13:29 Last Admin: 04/04/22 04:02 Dose: 80 mls/hr Ceftriaxone Sodium 2,000 mg/ (Dextrose) 70 mls @ 100 mls/hr IV Q24H [facility]ALISA; Protocol Stop: 04/15/22 11:59 Last Infusion: 04/04/22 13:04 Dose: Infused Heparin Sodium/Dextrose (Heparin Sodium/Dextrose) 25,000 units in 500 mls @ 26 mls/hr IV .[id number] MONALISA; Protocol Stop: 05/02/22 12:59 Last Admin: 04/04/22 04:03 Dose: 1,300 units/hr, 26 mls/hr Lorazepam (Lorazepam 1 Mg Tab) 1 - 3 mg PO UD PRN; Protocol PRN Reason: EtoH Withdrawal AWSS 6-10+ Stop: 05/01/22 15:30 Magnesium Hydroxide (Magnesium Hydroxide Susp 30 Ml Udc) 30 ml PO Q12H PRN PRN Reason: Constipation Stop: 05/01/22 15:30 Metoprolol Tartrate (Metoprolol Tartrate 50 Mg Tab) 50 mg PO BID [facility] Stop: 05/01/22 20:59 Last Admin: 04/04/22 08:31 Dose: 50 mg Miscellaneous (*Fenofibrate*Order Awaiting Action) 1 each N/A QS [facility] Stop: 05/01/22 15:59 Last Admin: 04/04/22 08:30 Dose: Not Given Ondansetron HCl (Ondansetron Inj 2 Mg/Ml 2 Ml Vial) 4 mg IV Q6H PRN PRN Reason: Nausea Stop: 05/01/22 15:30 Polyethylene Glycol (Polyethylene (Miralax) 17 Gm Pack) 17 gm PO DAILY PRN PRN Reason: Constipation Stop: 05/01/22 15:30 Umeclidinium [place] (Umeclidinium [place] 62.5mcg/Blister 7 Puffs/Inhaler) 1 puffs INH QAM [facility]; Protocol Stop: 05/02/22 08:59 Last Admin: 04/04/22 08:31 Dose: 1 puffs Warfarin Sodium (Warfarin Sod 2 Mg Tab) 2 mg PO DAILY@1830 [facility] Stop: 05/01/22 18:29 (1) Anemia Anemia type: unspecified type Qualified Code(s): D64.9 - Anemia, unspecified
[2022-04-04] MEDS: WARFARIN SOD 2 MG TAB PO SCH (17:08)
[2022-04-04] MEDS: ATORVASTATIN 40 MG TAB PO SCH (20:02)
[2022-04-05] MEDS: *FENOFIBRATE*ORDER AWAITING ACTION SCH ×4 (00:36→23:08)
[2022-04-05 05:47] LABS: Basophils # (auto) 0.06 K/uL (0-0.2); Basophils % (auto) 0.7 %; Eosinophils # (auto) 0.18 K/uL (0-0.50); Hemoglobin 9.5 g/dl (14.0-18.0); Immature Granulocytes # (auto) 0.07 K/uL (0.00-0.02); Immature Granulocytes % (auto) 0.8 %; Lymphocytes # (auto) 1.95 K/uL (1.2-3.4); Lymphocytes % (auto) 21.5 %; Mean Corpuscular Hemoglobin 31.8 pg (25.0-34.0); Mean Corpuscular Hgb Conc 33.9 g/dL (32.0-36.0); Mean Corpuscular Volume 93.6 fL (80.0-100.0); Mean Platelet Volume 10.2 fL (9.4-12.4); Monocytes # (auto) 0.65 K/uL (0.24-0.82); Monocytes % (auto) 7.2 %; Neutrophils # (auto) 6.16 K/uL (1.4-6.5); Neutrophils % (auto) 67.8 %; Platelet Count 320 K/uL (130-400); RDW Coefficient of Variation 12.6 % (11.5-14.5); RDW Standard Deviation 42.8 fL (36.4-46.3); Red Blood Count 2.99 M/uL (4.63-6.08); White Blood Count 9.07 K/ul (4.8-10.8)
[2022-04-05 06:06] LABS: Calcium 8.7 mg/dl (8.5-10.1); Creatinine Clr Calc Pharmacy 75.3 ml/min; Est GFR (African American) 89.2 ml/min; Potassium 3.7 mmol/L (3.5-5.1)
[2022-04-05 06:22] LABS: INR 1.1 (0.9-1.1); Partial Thromboplastin Ratio 2.1; Prothrombin Time 11.9 Seconds (9.0-12.0)
[2022-04-05 06:25] LABS: Partial Thromboplastin Time 56.7 Seconds (21.0-31.0)
[2022-04-05] MEDS: UMECLIDINIUM BROMIDE 62.5MCG/BLISTER 7 PUFFS/INHALER INH SCH (08:11)
[2022-04-05] MEDS: METOPROLOL TARTRATE 50 MG TAB PO SCH ×2 (08:11→20:32)
--- NOTE | 2022-04-05 10:08 | Cardiology Progress Note ---
Date of Service April 05, 2022 Assessment & Plan (1) Endocarditis of prosthetic aortic valve: (2) Bacteremia due to Streptococcus: (3) S/P AVR (aortic valve replacement): Plan Bioprosthetic aortic valve endocarditis, WARREN on 04/02/2022 with a 0.5 x 0.5 cm mobile echodensity attached to the bioprosthetic aortic valve annular sewing ring or strut on the ventricular side of the valve. Bioprosthetic leaflets notably thin, moving normally, with no bioprosthetic aortic valve regurgitation, EF 60-65%. Blood culture with Streptococcus anginosus group with follow-up cultures obtained on 04/04/2022 (pending). [employer] ID consultation pending. Anticipate 6 weeks IV antibiotic course via PICC line. Coumadin anticoagulation resumed on 04/04/2022, transitioning from IV heparin. Resting echocardiography ordered for AM Admission and Anticipated Discharge Date Admission Date: April 01, 2022 Supervising Physician Co-Signing Physician Notes Patient was seen and personally examined. No change in physical examination no diastolic murmur, no arrhythmia or congestive heart failure. No thromboembolic phenomenon skin exam Patient remains afebrile Plan as outlined well above Subjective Patient seen and examined. Chart, medications, and telemetry reviewed. Telemetry: Sinus ranging from the 50's to the 90's, predominately in the 50's to 70's. No complaints other than chronic back pain. No neurologic complaints, denying headaches, visual changes, unilateral weakness, etc. No chest pains or discomfort. No dyspnea. No palpitations. No cough, orthopnea, PND, or edema. dizziness or near syncope. No chills. No night sweats. No epistaxis, hemoptysis, melena, hematochezia, or hematuria. Review of Systems Review of Systems: Complete review of systems is as stated above, negative, or noncontributory. Physical Exam Physical Exam: General: A&Ox3. NAD. HENT: Normocephalic. Atraumatic. Eyes: PER. Conjunctiva pink, sclera clear. Neck: Bilateral carotid bruits. No JVD. No HJR. Heart: RRR, 70 bpm. Grade II/ systolic murmur. No diastolic murmur. No rub. Lungs: Decreased. Clear to auscultation. Abdomen: +BS. Soft. Nontender. No masses or organomegaly. Extremities: No clubbing, cyanosis, or edema. No evidence of embolic pnemenon. Limited neurological examination is without focal deficits. Pulses: radial=2/4, posterior tibial=2/4. Results & Data ([facility]) Vital Signs (Past 12 Hours) Vital Signs Temp Pulse Resp BP Pulse Ox O2 Del Method 04/05/22 07:31 36.5 C 71 20 114/66 97 Room Air 04/05/22 03:00 36.8 C 53 L 18 113/61 96 04/04/22 23:00 37.1 C 66 18 115/58 L 97 Laboratory Results Laboratory Results - last 24 hr 04/05/22 04/05/22 04/05/22 05:19 05:19 05:19 WBC 9.07 RBC 2.99 L Hgb 9.5 L Hct 28.0 L MCV 93.6 MCH 31.8 MCHC 33.9 RDW Std Deviation 42.8 RDW Coeff of Lizbeth 12.6 Plt Count 320 MPV 10.2 Immature Gran % (Auto) 0.8 Neut % (Auto) 67.8 Lymph % (Auto) 21.5 Charlton % (Auto) 7.2 Eos % (Auto) 2.0 Baso % (Auto) 0.7 Neut # (Auto) 6.16 Lymph # (Auto) 1.95 [place] # (Auto) 0.65 Eos # (Auto) 0.18 Baso # (Auto) 0.06 Immature Gran # (Auto) 0.07 H PT 11.9 INR 1.1 APTT 56.7 H* PTT Ratio 2.1 Sodium 137 Potassium 3.7 Chloride 108 H Carbon Dioxide 24 Anion Gap 5 BUN 10 Creatinine 1.00 Est Cr Clr Drug Dosing 75.3 Est GFR ( Amer) 89.2 Est GFR (Non-Af Amer) 77.0 BUN/Creatinine Ratio 10.0 Glucose 98 Calcium 8.7
[2022-04-05] MEDS: cefTRIAXone SODIUM 2,000 MG in DEXTROSE 5% 50 ML IV SCH (12:25)
[2022-04-05] MEDS: WARFARIN SOD 2 MG TAB PO SCH (17:48)
--- NOTE | 2022-04-05 18:36 | Hospitalist Progress Note ---
Date of Service April 05, 2022 Assessment & Plan (1) Bacteremia: (2) Subtherapeutic international normalized ratio (INR): (3) Hyponatremia: (4) Anemia: (5) Left lumbar radiculopathy: Plan This is a 66 yr old M who has significant past medical history of COPD, interstitial lung disease, HTN, HLD, history of DVT, HENOK on CPAP, history of carotid artery dissection, thrombophilia, long-term anticoagulation with Coumadin, history of bovine aortic valve replacement with aortic root repair in 2014 at [facility], history of IVC filter placement who presents to ED at the referral of PCP secondary to positive blood cultures along with fever and chills off and on x2 months. Aortic Valve Endocarditis Strep Bacteremia continue ceftriaxone, discontinue vancomcyin ID consult pending WARREN 04/02 demonstrated 0.5cm x 0.5cm vegetation on aortic valve annulus Blood cultures from 04/02 1 of 2 sets now positive. Repeat blood cultures 04/04 neg x 24 hours. PICC line can be placed once blood cultures negative x 48 hours. Hx of Bovine AVR with aortic root repair in 2014 at [facility] HTN HLD continue metoprolol hold losartan/hctz. BP normotensive currently continue statin HX of DVT/PE Presence of IVC filter continue heparin drip. Discussed with Cardiology, with no plans for surgery (patient does not need tunneled catheter), Coumadin resumed 04/04 Anemia hgb 11.8 Outpatient anemia panel revealed iron 35, transferrin saturation 14, ferritin 720, B12 379, folic acid 18.4 Possibly in setting of acute illness given prolonged state and adequate iron stores No signs or symptoms of bleeding, will monitor closely Hyponatremia Sodium 133--> 134 HCTZ held, sodium improved L lower back pain Due to back sprain/injury while fishing MRI negative for diskitis conservative management, tylenol PRN HENOK of CPAP CPAP at HS COPD ILD continue home inhalers no acute exac Alcohol abuse 14 drinks/wk last drink last night place on awss scale and prn protocol DVT ppx: heparin drip Discharge: Likely Tuesday Admission and Anticipated Discharge Date Admission Date: April 01, 2022 Subjective No acute distress, remains afebrile, tolerating diet Physical Exam Physical Exam: Pleasant, no acute distress, non toxic Respiratory: breathing comfortably on room air, no wheezing/rhonchi/rales Cardiovascular: regular rate and rhythm, +soft systolic murmur Gastrointestinal (Abdomen): soft, non tender, non distended Musculoskeletal: No edema, no cyanosis or clubbing Neurologic: awake, alert, spontaneously moving extremities Results & Data Results & Data ([facility]) Vital Signs (Past 12 Hours) Vital Signs Temp Pulse Resp BP Pulse Ox O2 Del Method 04/05/22 15:36 36.5 C 61 19 116/70 98 Room Air 04/05/22 11:34 36.7 C 54 L 19 110/63 99 Room Air 04/05/22 07:31 36.5 C 71 20 114/66 97 Room Air Laboratory Results Short CBC 04/05/22 Range/Units 05:19 WBC 9.07 (4.8-10.8) K/ul Hgb 9.5 L (14.0-18.0) g/dl Hct 28.0 L (40.1-51.0) % Plt Count 320 (130-400) K/uL BMP 04/05/22 05:19 Sodium 137 Potassium 3.7 Chloride 108 H Carbon Dioxide 24 BUN 10 Creatinine 1.00 Glucose 98 Calcium 8.7 Medications Administered Current Inpatient Medications Acetaminophen (Acetaminophen 325 Mg Tab) 650 mg PO Q4H PRN PRN Reason: Pain or Fever Stop: 05/01/22 15:30 Last Admin: 04/02/22 20:30 Dose: 650 mg Al Hydrox/Mg Hydrox/Simethicone (Aluminum/Magnesium Susp 30 Ml Udc) 15 ml PO Q4 H PRN PRN Reason: Dyspepsia Stop: 05/01/22 15:30 Albuterol (Albuterol Hfa 8 Gm Inhaler) 2 puffs INH Q4H PRN PRN Reason: Shortness Of Breath Stop: 05/01/22 15:30 Atorvastatin Calcium (Atorvastatin 40 Mg Tab) 80 mg PO HS [facility] Stop: 05/01/22 20:59 Last Admin: 04/04/22 20:02 Dose: 80 mg Ceftriaxone Sodium 2,000 mg/ (Dextrose) 70 mls @ 100 mls/hr IV Q24H [facility]; Protocol Stop: 04/15/22 11:59 Last Infusion: 04/05/22 12:58 Dose: Infused Heparin Sodium/Dextrose (Heparin Sodium/Dextrose) 25,000 units in 500 mls @ 26 mls/hr IV .[id number] [facility]AL[facility]; Protocol Stop: 05/02/22 12:59 Last Admin: 04/04/22 23:20 Dose: 1,300 units/hr, 26 mls/hr Lorazepam (Lorazepam 1 Mg Tab) 1 - 3 mg PO UD PRN; Protocol PRN Reason: EtoH Withdrawal AWSS 6-10+ Stop: 05/01/22 15:30 Magnesium Hydroxide (Magnesium Hydroxide Susp 30 Ml Udc) 30 ml PO Q12H PRN PRN Reason: Constipation Stop: 05/01/22 15:30 Metoprolol Tartrate (Metoprolol Tartrate 50 Mg Tab) 50 mg PO BID [facility] Stop: 05/01/22 20:59 Last Admin: 04/05/22 08:11 Dose: 50 mg Miscellaneous (*Fenofibrate*Order Awaiting Action) 1 each N/A QS [facility] Stop: 05/01/22 15:59 Last Admin: 04/05/22 15:30 Dose: Not Given Ondansetron HCl (Ondansetron Inj 2 Mg/Ml 2 Ml Vial) 4 mg IV Q6H PRN PRN Reason: Nausea Stop: 05/01/22 15:30 Polyethylene Glycol (Polyethylene (Miralax) 17 Gm Pack) 17 gm PO DAILY PRN PRN Reason: Constipation Stop: 05/01/22 15:30 Umeclidinium [place] (Umeclidinium [place] 62.5mcg/Blister 7 Puffs/Inhaler) 1 puffs INH QAM [facility]; Protocol Stop: 05/02/22 08:59 Last Admin: 04/05/22 08:11 Dose: 1 puffs Warfarin Sodium (Warfarin Sod 2 Mg Tab) 2 mg PO DAILY@1830 [facility] Stop: 05/01/22 18:29 Last Admin: 04/05/22 17:48 Dose: 2 mg (1) Anemia Anemia type: unspecified type Qualified Code(s): D64.9 - Anemia, unspecified
[2022-04-05] MEDS: HEPARIN SODIUM/DEXTROSE 25,000 UNITS/500 ML BAG IV SCH (20:30)
[2022-04-05] MEDS: ATORVASTATIN 40 MG TAB PO SCH (20:31)
[2022-04-06 06:32] LABS: Hematocrit (blood only) 30.1 % (40.1-51.0); Hemoglobin 10.4 g/dl (14.0-18.0); Mean Corpuscular Hemoglobin 31.7 pg (25.0-34.0); Mean Corpuscular Hgb Conc 34.6 g/dL (32.0-36.0); Mean Corpuscular Volume 91.8 fL (80.0-100.0); Platelet Count 346 K/uL (130-400); RDW Coefficient of Variation 12.5 % (11.5-14.5); RDW Standard Deviation 41.5 fL (36.4-46.3); Red Blood Count 3.28 M/uL (4.63-6.08); White Blood Count 9.04 K/ul (4.8-10.8)
[2022-04-06 07:01] LABS: INR 1.1 (0.9-1.1); Partial Thromboplastin Ratio 1.9; Prothrombin Time 11.7 Seconds (9.0-12.0)
[2022-04-06 07:02] LABS: BUN Creatinine Ratio 9.6 (10-20); Calcium 9.2 mg/dl (8.5-10.1); Creatinine Clr Calc Pharmacy 79.6 ml/min; Est GFR (African American) 96.2 ml/min
[2022-04-06] MEDS: UMECLIDINIUM BROMIDE 62.5MCG/BLISTER 7 PUFFS/INHALER INH SCH (08:16)
[2022-04-06] MEDS: METOPROLOL TARTRATE 50 MG TAB PO SCH ×2 (08:16→20:17)
--- NOTE | 2022-04-06 09:55 | Cardiology Progress Note ---
Date of Service April 06, 2022 Assessment & Plan (1) Endocarditis of prosthetic aortic valve: (2) Bacteremia due to Streptococcus: (3) S/P AVR (aortic valve replacement): Plan Bioprosthetic aortic valve endocarditis, WARREN on 04/02/2022 with a 0.5 x 0.5 cm mobile echodensity attached to the bioprosthetic aortic valve annular sewing ring or strut on the ventricular side of the valve. Bioprosthetic leaflets notably thin, moving normally, with no bioprosthetic aortic valve regurgitation, EF 60-65%. Blood culture with Streptococcus anginosus group with follow-up cultures obtained on 04/04/2022 showing no growth thus far. [employer] ID consultation pending. Anticipate 6 weeks IV antibiotic course via PICC line. Coumadin anticoagulation resumed on 04/04/2022, transitioning from IV heparin. Follow-up resting echocardiography pending this morning. Admission and Anticipated Discharge Date Admission Date: April 01, 2022 Supervising Physician Co-Signing Physician Notes Patient seen and examined, chart, medications, telemetry reviewed. No change in physical examination no change in murmur, evidence of embolic phenomena Echocardiogram today transthoracic demonstrates stable prosthetic valve function no visualized vegetation no valvular insufficiency LV systolic function remains normal Plan as above Subjective Patient seen and examined. Chart, medications, and telemetry reviewed. Anxious, regarding the wait for Infectious Disease recommendations. Follow-up blood cultures showing no growth from 04/04/2022 thus far. Feeling well. No headaches, unilateral weakness, visual disturbances, cold fingers or toes, chest pain, palpitations, shortness of breath, orthopnea, PND, edema, dizziness, near syncope, fevers, chills, melena, hematochezia, or hematuria. Continuous telemetry monitoring demonstrates sinus rhythm in the 60's to 70's over the last 24 hours. Resting echocardiography being performed; interpretation to come. Review of Systems Review of Systems: Complete review of systems is as stated above, negative, or noncontributory. Physical Exam Physical Exam: General: A&Ox3. NAD. HENT: Normocephalic. Atraumatic. Eyes: PER. Conjunctiva pink, sclera clear. Neck: Bilateral carotid bruits. No JVD. No HJR. Heart: RRR, 70 bpm. Grade II/ systolic murmur. No diastolic murmur. No rub. Lungs: Decreased. Clear to auscultation. Abdomen: +BS. Soft. Nontender. No masses or organomegaly. Extremities: No clubbing, cyanosis, or edema. No evidence of embolic pnemenon. Limited neurological examination is without focal deficits. Pulses: radial=2/4, posterior tibial=2/4. Results & Data ([facility]) Vital Signs (Past 12 Hours) Vital Signs Temp Pulse Pulse Resp BP Pulse Ox O2 Del Method 04/06/22 08:11 37.0 C 76 18 126/71 97 Room Air 04/06/22 03:12 36.9 C 62 18 135/54 L 95 Room Air 04/05/22 23:07 36.8 C 66 18 145/71 H 96 Room Air 04/05/22 22:48 62 Diagnostic Findings Laboratory Results - last 24 hr 04/06/22 04/06/22 04/06/22 06:22 06:22 06:22 WBC 9.04 RBC 3.28 L Hgb 10.4 L Hct 30.1 L MCV 91.8 MCH 31.7 MCHC 34.6 RDW Std Deviation 41.5 RDW Coeff of Lizbeth 12.5 Plt Count 346 MPV 10.0 PT 11.7 INR 1.1 APTT 52.0 H* PTT Ratio 1.9 Sodium 137 Potassium 4.0 Chloride 108 H Carbon Dioxide 23 Anion Gap 6 BUN 9 Creatinine 0.94 Est Cr Clr Drug Dosing 79.6 Est GFR ( Amer) 96.2 Est GFR (Non-Af Amer) 83.0 BUN/Creatinine Ratio 9.6 L Glucose 97 Calcium 9.2
[2022-04-06] MEDS: cefTRIAXone SODIUM 2,000 MG in DEXTROSE 5% 50 ML IV SCH (12:20)
[2022-04-06] MEDS: HEPARIN SODIUM/DEXTROSE 25,000 UNITS/500 ML BAG IV SCH (16:17)
[2022-04-06] MEDS: *FENOFIBRATE*ORDER AWAITING ACTION SCH (16:38)
--- NOTE | 2022-04-06 17:14 | Hospitalist Progress Note ---
Date of Service April 06, 2022 Assessment & Plan (1) Bacteremia: (2) Subtherapeutic international normalized ratio (INR): (3) Hyponatremia: (4) Anemia: (5) Left lumbar radiculopathy: Plan This is a 66 yr old M who has significant past medical history of COPD, interstitial lung disease, HTN, HLD, history of DVT, HENOK on CPAP, history of carotid artery dissection, thrombophilia, long-term anticoagulation with Coumadin, history of bovine aortic valve replacement with aortic root repair in 2014 at [facility], history of IVC filter placement who presents to ED at the referral of PCP secondary to positive blood cultures along with fever and chills off and on x2 months. Aortic Valve Endocarditis Strep Bacteremia ID consult pending WARREN 04/02 demonstrated 0.5cm x 0.5cm vegetation on aortic valve annulus Blood cultures from 04/02 1 of 2 sets now positive. Repeat blood cultures 04/04 neg x 48hours. Will order PICC line -continue Ceftriaxone -Formal ID consult pending. I discussed with provider today and requested consult be expedited Hx of Bovine AVR with aortic root repair in 2014 at [facility] HTN HLD continue metoprolol hold losartan/hctz. BP normotensive currently continue statin HX of DVT/PE Presence of IVC filter continue heparin drip. Discussed with Cardiology, with no plans for surgery (patient does not need tunneled catheter), Coumadin resumed 04/04. Will give extra 5mg coumadin today (in addition to the scheduled 2mg daily which he takes normally) Anemia hgb 11.8 Outpatient anemia panel revealed iron 35, transferrin saturation 14, ferritin 720, B12 379, folic acid 18.4 Possibly in setting of acute illness given prolonged state and adequate iron stores No signs or symptoms of bleeding, will monitor closely Hyponatremia Sodium 133--> 134 HCTZ held, sodium improved L lower back pain Due to back sprain/injury while fishing MRI negative for diskitis conservative management, tylenol PRN HENOK of CPAP CPAP at HS COPD ILD continue home inhalers no acute exac Alcohol abuse 14 drinks/wk last drink last night place on awss scale and prn protocol DVT ppx: heparin drip Discharge: Pending ID consult and home antibiotic set up Admission and Anticipated Discharge Date Admission Date: April 01, 2022 Subjective Remains afebrile. Denies chest pain, shortness of breath Still waiting for ID consult Physical Exam Physical Exam: Appears well, no acute distress, non toxic Respiratory: Breathing comfortably on room air, no wheezing/rhonchi Cardiovascular: Regular rate and rhythm, soft systolic murmur Gastrointestinal (Abdomen): soft, non tender, non distended Musculoskeletal: No edema Neurologic: awake, alert, spontaneously moving extremities Results & Data Results & Data ([facility]) Vital Signs (Past 12 Hours) Vital Signs Temp Pulse Pulse Pulse Resp BP BP 04/06/22 16:00 71 04/06/22 16:00 36.9 C 70 18 128/75 04/06/22 11:53 36.9 C 63 20 113/63 04/06/22 08:00 53 L 04/06/22 08:11 37.0 C 76 18 126/71 Pulse Ox O2 Del Method 04/06/22 16:00 04/06/22 16:00 99 Room Air 04/06/22 11:53 96 Room Air 04/06/22 08:00 04/06/22 08:11 97 Room Air Laboratory Results Short CBC 04/06/22 Range/Units 06:22 WBC 9.04 (4.8-10.8) K/ul Hgb 10.4 L (14.0-18.0) g/dl Hct 30.1 L (40.1-51.0) % Plt Count 346 (130-400) K/uL BMP 04/06/22 06:22 Sodium 137 Potassium 4.0 Chloride 108 H Carbon Dioxide 23 BUN 9 Creatinine 0.94 Glucose 97 Calcium 9.2 Medications Administered Current Inpatient Medications Acetaminophen (Acetaminophen 325 Mg Tab) 650 mg PO Q4H PRN PRN Reason: Pain or Fever Stop: 05/01/22 15:30 Last Admin: 04/02/22 20:30 Dose: 650 mg Al Hydrox/Mg Hydrox/Simethicone (Aluminum/Magnesium Susp 30 Ml Udc) 15 ml PO Q4H PRN PRN Reason: Dyspepsia Stop: 05/01/22 15:30 Albuterol (Albuterol Hfa 8 Gm Inhaler) 2 puffs INH Q4H PRN PRN Reason: Shortness Of Breath Stop: 05/01/22 15:30 Atorvastatin Calcium (Atorvastatin 40 Mg Tab) 80 mg PO HS MONALISA Stop: 05/01/22 20:59 Last Admin: 04/05/22 20:31 Dose: 80 mg Fenofibrate (Fenofibrate Nanocrystallized 48 Mg Tablet) 48 mg PO DAILY [facility] Stop: 05/07/22 08:59 Ceftriaxone Sodium 2,000 mg/ (Dextrose) 70 mls @ 100 mls/hr IV Q24H [facility]; Protocol Stop: 04/15/22 11:59 Last Infusion: 04/06/22 13:02 Dose: Infused Heparin Sodium/Dextrose (Heparin Sodium/Dextrose) 25,000 units in 500 mls @ 26 mls/hr IV .[id number] [facility]; Protocol Stop: 05/02/22 12:59 Last Admin: 04/06/22 16:17 Dose: 1,300 units/hr, 26 mls/hr Lorazepam (Lorazepam 1 Mg Tab) 1 - 3 mg PO UD PRN; Protocol PRN Reason: EtoH Withdrawal AWSS 6-10+ Stop: 05/01/22 15:30 Magnesium Hydroxide (Magnesium Hydroxide Susp 30 Ml Udc) 30 ml PO Q12H PRN PRN Reason: Constipation Stop: 05/01/22 15:30 Metoprolol Tartrate (Metoprolol Tartrate 50 Mg Tab) 50 mg PO BID [facility] Stop: 05/01/22 20:59 Last Admin: 04/06/22 08:16 Dose: 50 mg Ondansetron HCl (Ondansetron Inj 2 Mg/Ml 2 Ml Vial) 4 mg IV Q6H PRN PRN Reason: Nausea Stop: 05/01/22 15:30 Polyethylene Glycol (Polyethylene (Miralax) 17 Gm Pack) 17 gm PO DAILY PRN PRN Reason: Constipation Stop: 05/01/22 15:30 Umeclidinium [place] (Umeclidinium [place] 62.5mcg/Blister 7 Puffs/Inhaler) 1 puffs INH QAM [facility]; Protocol Stop: 05/02/22 08:59 Last Admin: 04/06/22 08:16 Dose: 1 puffs Warfarin Sodium (Warfarin Sod 2 Mg Tab) 2 mg PO DAILY@1830 [facility] Stop: 05/01/22 18:29 Last Admin: 04/05/22 17:48 Dose: 2 mg Warfarin Sodium (Warfarin Sod 5 Mg Tab) 5 mg PO DAILY@1830 [facility] Stop: 04/06/22 18:31 (1) Anemia Anemia type: unspecified type Qualified Code(s): D64.9 - Anemia, unspecified
[2022-04-06] MEDS: WARFARIN SOD 2 MG TAB PO SCH (18:04)
[2022-04-06] MEDS ORDERED: WARFARIN SOD 5 MG TAB PO SCH (18:30)
[2022-04-06] MEDS: ATORVASTATIN 40 MG TAB PO SCH (20:16)
[2022-04-07] MEDS: ACETAMINOPHEN 325 MG TAB PO PRN ×2 (04:05→15:57)
[2022-04-07 05:53] LABS: Hematocrit (blood only) 30.6 % (40.1-51.0); Hemoglobin 10.5 g/dl (14.0-18.0); Mean Corpuscular Hemoglobin 32.1 pg (25.0-34.0); Mean Corpuscular Hgb Conc 34.3 g/dL (32.0-36.0); Mean Corpuscular Volume 93.6 fL (80.0-100.0); Mean Platelet Volume 10.1 fL (9.4-12.4); Platelet Count 365 K/uL (130-400); RDW Coefficient of Variation 12.6 % (11.5-14.5); Red Blood Count 3.27 M/uL (4.63-6.08)
[2022-04-07 06:20] LABS: BUN Creatinine Ratio 8.4 (10-20); Calcium 9.5 mg/dl (8.5-10.1); Creatinine Clr Calc Pharmacy 70.4 ml/min; Est GFR (African American) 82.2 ml/min
[2022-04-07 06:22] LABS: INR 1.1 (0.9-1.1); Prothrombin Time 11.9 Seconds (9.0-12.0)
[2022-04-07 06:29] LABS: Partial Thromboplastin Time 54.7 Seconds (21.0-31.0)
[2022-04-07] MEDS: FENOFIBRATE NANOCRYSTALLIZED 48 MG TABLET PO SCH (09:31)
[2022-04-07] MEDS: METOPROLOL TARTRATE 50 MG TAB PO SCH ×2 (09:31→20:49)
[2022-04-07] MEDS: UMECLIDINIUM BROMIDE 62.5MCG/BLISTER 7 PUFFS/INHALER INH SCH (09:31)
--- NOTE | 2022-04-07 10:44 | Cardiology Progress Note ---
Date of Service April 07, 2022 Assessment & Plan (1) Endocarditis of prosthetic aortic valve: (2) Bacteremia due to Streptococcus: (3) S/P AVR (aortic valve replacement): Plan Bioprosthetic aortic valve endocarditis. WARREN on 04/02/2022 with a 0.5 x 0.5 cm mobile echodensity attached to the bioprosthetic aortic valve annular sewing ring or strut on the ventricular side of the valve. Blood culture with Streptococcus anginosus group with follow-up cultures obtained on 04/04/2022 showing no growth. Infectious Disease consultation remains pending. Anticipate 6 weeks IV antibiotic course via PICC line. Coumadin anticoagulation resumed on 04/04/2022, transitioning from IV heparin. Outpatient dose was 2 mg/day prior to hospitalization. INR 1.1 this morning. H&H stable. Follow-up transesophageal echocardiography discussed. Outpatient cardiology follow-up at [facility]. Admission and Anticipated Discharge Date Admission Date: April 01, 2022 Supervising Physician Co-Signing Physician Notes Patient was seen and examined, chart, medications, telemetry reviewed. No acute complaints or physical changes. Exam unchanged. Blood cultures from 04/04/2022 without growth. Plan as well outlined above awaiting formal ID consultation with ultimate goals PICC line insertion, extended antibiotic course post hospital discharge Outpatient cardiology follow-up with likely WARREN at 4-week EKG today Subjective Patient seen and examined. Chart, medications, and telemetry reviewed. Feeling well. Back pain has improved with rest. No headaches, unilateral weakness, visual disturbances, chest pain, palpitations, shortness of breath, orthopnea, PND, edema, dizziness, near syncope, fevers, chills, melena, hematochezia, or hematuria. Continuous telemetry monitoring demonstrates sinus rhythm in the 50's to 70's over the last 24 hours. April 02, 2022 WARREN [facility] Bioprosthetic aortic valve vegetation present. There is a 0.5 x 0.5 cm mobile echodensity attached to the bioprosthetic aortic valve annular sweing ring or strut on the ventricular side of the valve. Bioprosthetic leaflets are thin and move normally. No bioprosthetic aortic valve regurgitation. EF 60-65%. April 06, 2022 TTE Interpretation Summary [facility] Normal size LV. Mild concentric LVH. Normal LV wall motion. EF 60-65%. There is a bioprosthetic aortic valve. Bioprosthetic leaflets are thick and move well. Gradient is normal for this prosthetic aortic valve. No aortic regurgitation. Normal mitral valve anatomy. Mild mitral regurgitation. no vegetations visualized. Review of Systems Review of Systems: Complete review of systems is as stated above, negative, or noncontributory. Physical Exam Physical Exam: General: A&Ox3. NAD. HENT: Normocephalic. Atraumatic. Eyes: PER. Conjunctiva pink, sclera clear. Neck: Bilateral carotid bruits. No JVD. No HJR. Heart: RRR, 70 bpm. Grade II/ systolic murmur in the outflow tract. No diastolic murmur. No rub. Lungs: Decreased. Clear to auscultation. Abdomen: +BS. Soft. Nontender. No masses or organomegaly. Extremities: No clubbing, cyanosis, or edema. No evidence of embolic pnemenon. Limited neurological examination is without focal deficits. Pulses: radial=2/4, posterior tibial=2/4. Results & Data ([facility]) Vital Signs (Past 12 Hours) Vital Signs Temp Pulse Pulse Resp BP Pulse Ox O2 Del Method 04/07/22 08:10 36.5 C 65 18 102/65 99 Room Air 04/07/22 03:57 37.1 C 60 20 133/57 L 95 Room Air 04/06/22 23:59 66 04/06/22 22:43 37.1 C 64 18 109/59 L 95 Room Air Laboratory Results Laboratory Results - last 24 hr 04/07/22 04/07/22 04/07/22 05:34 05:34 05:34 WBC 9.80 RBC 3.27 L Hgb 10.5 L Hct 30.6 L MCV 93.6 MCH 32.1 MCHC 34.3 RDW Std Deviation 43.0 RDW Coeff of Lizbeth 12.6 Plt Count 365 MPV 10.1 PT 11.9 INR 1.1 APTT 54.7 H* PTT Ratio 2.0 Sodium 136 Potassium 4.0 Chloride 105 Carbon Dioxide 24 Anion Gap 7 BUN 9 Creatinine 1.07 Est Cr Clr Drug Dosing 70.4 Est GFR ( Amer) 82.2 Est GFR (Non-Af Amer) 71.0 BUN/Creatinine Ratio 8.4 L Glucose 98 Calcium 9.5
[2022-04-07] MEDS: HEPARIN SODIUM/DEXTROSE 25,000 UNITS/500 ML BAG IV SCH (11:54)
[2022-04-07] MEDS: cefTRIAXone SODIUM 2,000 MG in DEXTROSE 5% 50 ML IV SCH (13:08)
--- NOTE | 2022-04-07 14:42 | Hospitalist Progress Note ---
Date of Service April 07, 2022 Assessment & Plan (1) Bacteremia: (2) Subtherapeutic international normalized ratio (INR): (3) Hyponatremia: (4) Anemia: (5) Left lumbar radiculopathy: Plan This is a 66 yr old M who has significant past medical history of COPD, interstitial lung disease, HTN, HLD, history of DVT, HENOK on CPAP, history of carotid artery dissection, thrombophilia, long-term anticoagulation with Coumadin, history of bovine aortic valve replacement with aortic root repair in 2014 at [facility], history of IVC filter placement who presents to ED at the referral of PCP secondary to positive blood cultures along with fever and chills off and on x2 months. Strep anginosus Bacteremia with bioprosthetic AV endocarditis - Blood clx 04/01 with strep anginosus in 4/4 bottles, blood clx 04/04 negative - WARREN 04/02 demonstrated 0.5cm x 0.5cm vegetation on aortic valve annulus - PICC ordered as bacteremia cleared, consent obtained - continue Ceftriaxone . Formal ID consult pending. Hx of Bovine AVR with aortic root repair in 2014 at [facility] HTN HLD continue metoprolol hold losartan/hctz. BP normotensive currently continue statin HX of DVT/PE Presence of IVC filter continue heparin drip. Discussed with Cardiology, with no plans for surgery (patient does not need tunneled catheter) - Coumadin resumed 04/04- given 7 mg coumadin- INR remains at 1.1. Will give extra 5mg Coumadin again today (in addition to the scheduled 2mg daily which he takes normally) - Check INR in am for further dosing Anemia Hb relatively stable at 10.5 Outpatient anemia panel revealed iron 35, transferrin saturation 14, ferritin 720, B12 379, folic acid 18.4 Possibly in setting of acute illness given prolonged state and adequate iron stores No signs or symptoms of bleeding, will monitor closely Hyponatremia- resolved. HCTZ on hold. L lower back pain- Due to back sprain/injury while fishing - MRI negative for diskitis - conservative management, tylenol PRN HENOK of CPAP- CPAP at COPD/ILD continue home inhalers no acute exacerbation Alcohol abuse- no S/S withdrawal. Recommend cessation. DVT ppx: heparin drip, coumadin bridging until INR therapeutic Discharge: Pending ID consult and home antibiotic set up. PICC line ordered. Admission and Anticipated Discharge Date Admission Date: April 01, 2022 Subjective Feels good. Feels ready to go home. No more fever since 04/02. No chest pain, shortness of breath, N/V. Physical Exam Physical Exam: General: Sitting comfortably in bed, not in distress, on room air HEENT: EOMI, HEMANTH, MMM Chest: Clear breath sounds bilaterally, no wheezes or crackles CVS: Regular rate and rhythm, normal heart sounds Abdomen: Soft, non tender, not distended, normal bowel sounds Neuro: Awake, alert, oriented, conversing well, non focal Extremities: No cyanosis, clubbing or edema Results & Data Results & Data ([facility]) Vital Signs (Past 12 Hours) Vital Signs Temp Pulse Resp BP Pulse Ox O2 Del Method 04/07/22 11:50 36.8 C 64 18 116/70 95 Room Air 04/07/22 08:10 36.5 C 65 18 102/65 99 Room Air 04/07/22 03:57 37.1 C 60 20 133/57 L 95 Room Air Laboratory Results Short CBC 04/07/22 Range/Units 05:34 WBC 9.80 (4.8-10.8) K/ul Hgb 10.5 L (14.0-18.0) g/dl Hct 30.6 L (40.1-51.0) % Plt Count 365 (130-400) K/uL BMP 04/07/22 05:34 Sodium 136 Potassium 4.0 Chloride 105 Carbon Dioxide 24 BUN 9 Creatinine 1.07 Glucose 98 Calcium 9.5 Medications Administered Current Inpatient Medications Acetaminophen (Acetaminophen 325 Mg Tab) 650 mg PO Q4H PRN PRN Reason: Pain or Fever Stop: 05/01/22 15:30 Last Admin: 04/07/22 04:05 Dose: 650 mg Al Hydrox/Mg Hydrox/Simethicone (Aluminum/Magnesium Susp 30 Ml Udc) 15 ml PO Q4H PRN PRN Reason: Dyspepsia Stop: 05/01/22 15:30 Albuterol (Albuterol Hfa 8 Gm Inhaler) 2 puffs INH Q4H PRN PRN Reason: Shortness Of Breath Stop: 05/01/22 15:30 Atorvastatin Calcium (Atorvastatin 40 Mg Tab) 80 mg PO HS MONALISA Stop: 05/01/22 20:59 Last Admin: 04/06/22 20:16 Dose: 80 mg Fenofibrate (Fenofibrate Nanocrystallized 48 Mg Tablet) 48 mg PO DAILY COUNTS INCLUDE 234 BEDS AT [facility] Stop: 05/07/22 08:59 Last Admin: 04/07/22 09:31 Dose: 48 mg Ceftriaxone Sodium 2,000 mg/ (Dextrose) 70 mls @ 100 mls/hr IV Q24H COUNTS INCLUDE 234 BEDS AT [facility]; Protocol Stop: 04/15/22 11:59 Last Infusion: 04/07/22 13:55 Dose: Infused Heparin Sodium/Dextrose (Heparin Sodium/Dextrose) 25,000 units in 500 mls @ 26 mls/hr IV .[id number] COUNTS INCLUDE 234 BEDS AT [facility]; Protocol Stop: 05/02/22 12:59 Last Admin: 04/07/22 11:54 Dose: 1,300 units/hr, 26 mls/hr Lorazepam (Lorazepam 1 Mg Tab) 1 - 3 mg PO UD PRN; Protocol PRN Reason: EtoH Withdrawal AWSS 6-10+ Stop: 05/01/22 15:30 Magnesium Hydroxide (Magnesium Hydroxide Susp 30 Ml Udc) 30 ml PO Q12H PRN PRN Reason: Constipation Stop: 05/01/22 15:30 Metoprolol Tartrate (Metoprolol Tartrate 50 Mg Tab) 50 mg PO BID COUNTS INCLUDE 234 BEDS AT [facility] Stop: 05/01/22 20:59 Last Admin: 04/07/22 09:31 Dose: 50 mg Ondansetron HCl (Ondansetron Inj 2 Mg/Ml 2 Ml Vial) 4 mg IV Q6H PRN PRN Reason: Nausea Stop: 05/01/22 15:30 Polyethylene Glycol (Polyethylene (Miralax) 17 Gm Pack) 17 gm PO DAILY PRN PRN Reason: Constipation Stop: 05/01/22 15:30 Umeclidinium [place] (Umeclidinium [place] 62.5mcg/Blister 7 Puffs/Inhaler) 1 puffs INH QAM COUNTS INCLUDE 234 BEDS AT [facility]; Protocol Stop: 05/02/22 08:59 Last Admin: 04/07/22 09:31 Dose: 1 puffs Warfarin Sodium (Warfarin Sod 2 Mg Tab) 2 mg PO DAILY@1830 COUNTS INCLUDE 234 BEDS AT [facility] Stop: 05/01/22 18:29 Last Admin: 04/06/22 18:04 Dose: 2 mg Warfarin Sodium (Warfarin Sod 5 Mg Tab) 5 mg PO NOW ONE Stop: 07/20/22 16:01 (1) Anemia Anemia type: unspecified type Qualified Code(s): D64.9 - Anemia, unspecified
--- NOTE | 2022-04-07 14:54 | XRay Report ---
SINGLE VIEW CHEST CLINICAL HISTORY: PICC placement FINDINGS: An AP, portable, upright chest radiograph is compared to study dated 04/01/2022. A right PIC C line is been placed. The tip of the catheter projects over the SVC. The patient is status post midl ine sternotomy and aortic valve surgery. The heart is mildly enlarged noting atherosclerotic calcific ation of the thoracic aorta. The pulmonary vasculature is noncongested. The lungs and pleural spaces are clear noting mild bibasilar atelectasis. No pneumothorax is seen. The bony thorax is grossly inta ct. IMPRESSION: 1. A right PICC line has been placed as above. 2. No acute cardiopulmonary abnormality is identified. ACT 112: Negative or not required by law. Electronically signed by: Rayray Gross M.D. 04/07/2022 2:53 PM
[2022-04-07] MEDS: WARFARIN SOD 2 MG TAB PO SCH (18:07)
[2022-04-07] MEDS ORDERED: WARFARIN SOD 5 MG TAB PO ONE (18:30)
[2022-04-07] MEDS: ATORVASTATIN 40 MG TAB PO SCH (20:49)
[2022-04-08] MEDS: ACETAMINOPHEN 325 MG TAB PO PRN ×3 (00:04→17:34)
[2022-04-08] MEDS: HEPARIN SODIUM/DEXTROSE 25,000 UNITS/500 ML BAG IV SCH (07:15)
[2022-04-08 07:36] LABS: INR 1.3 (0.9-1.1); Prothrombin Time 13.8 Seconds (9.0-12.0)
[2022-04-08 08:02] LABS: Partial Thromboplastin Ratio 2.1
[2022-04-08 08:11] LABS: Partial Thromboplastin Time 56.4 Seconds (21.0-31.0)
[2022-04-08] MEDS: FENOFIBRATE NANOCRYSTALLIZED 48 MG TABLET PO SCH (09:22)
[2022-04-08] MEDS: UMECLIDINIUM BROMIDE 62.5MCG/BLISTER 7 PUFFS/INHALER INH SCH (09:22)
[2022-04-08] MEDS: METOPROLOL TARTRATE 50 MG TAB PO SCH ×2 (09:22→20:59)
--- NOTE | 2022-04-08 10:26 | Cardiology Progress Note ---
Date of Service April 08, 2022 Assessment & Plan (1) Endocarditis of prosthetic aortic valve: (2) Bacteremia due to Streptococcus: (3) S/P AVR (aortic valve replacement): Plan Bioprosthetic aortic valve endocarditis. WARREN on 04/02/2022 with a 0.5 x 0.5 cm mobile echodensity attached to the bioprosthetic aortic valve annular sewing ring or strut on the ventricular side of the valve. Blood cultures with Streptococcus anginosus group with follow-up cultures obtained on 04/04/2022 showing no growth. Infectious Disease consultation remains pending. 6 weeks IV antibiotic therapy. Follow-up transesophageal echocardiography in about 4 weeks discussed. Outpatient cardiology follow-up at [facility]. Office aware, arranging both. Please contact with any questions or concerns. Admission and Anticipated Discharge Date Admission Date: April 01, 2022 Supervising Physician Co-Signing Physician Notes Patient was personally seen, chart, medications, telemetry reviewed. No acute complaints or physical changes. Exam unchanged. Blood cultures from 04/04/2022 without growth. Plan as well outlined above awaiting formal ID consultation, clinic at [facility] personally contacted today Subjective Moved to isolation, Room 235, on 04/08/2022, person under investigation. tested positive for Covid-19 yesterday. Last exposure Tuesday. Status post right upper extremity PICC line placement. Anxious for discharge. Getting more and more depressed. Pinched a nerve in his neck; hurts to move it 10 degrees to the left. Had this before. Lower back feels better. No chest pain. No palpitations. No dyspnea. No orthopnea, PND, or peripheral edema. Telemetry: Sinus in the 60's to 80's EKG on April 07, 2022 revealed normal sinus rhythm at [address] and T wave abnormality Review of Systems Review of Systems: Complete review of systems is as stated above, negative, or noncontributory. Results & Data ([facility]) Vital Signs (Past 12 Hours) Vital Signs Temp Pulse Pulse Pulse Resp BP BP 04/08/22 07:20 36.7 C 81 16 118/75 04/08/22 06:45 83 04/08/22 04:32 37.0 C 66 19 118/69 04/07/22 23:59 62 04/08/22 00:01 37.0 C 70 19 164/70 H Pulse Ox O2 Del Method 04/08/22 07:20 97 Room Air 04/08/22 06:45 04/08/22 04:32 98 Room Air 04/07/22 23:59 04/08/22 00:01 96 Room Air Laboratory Results Laboratory Results - last 24 hr 04/08/22 04/08/22 06:56 06:56 PT 13.8 H INR 1.3 H APTT 56.4 H* PTT Ratio 2.1
[2022-04-08] MEDS ORDERED: CYCLOBENZAPRINE HCL 10 MG TAB PO ONE (11:14)
[2022-04-08] MEDS: cefTRIAXone SODIUM 2,000 MG in DEXTROSE 5% 50 ML IV SCH (12:11)
--- NOTE | 2022-04-08 13:46 | Hospitalist Progress Note ---
Date of Service April 08, 2022 Assessment & Plan (1) Bacteremia: (2) Subtherapeutic international normalized ratio (INR): (3) Hyponatremia: (4) Anemia: (5) Left lumbar radiculopathy: Plan This is a 66 yr old M who has significant past medical history of COPD, interstitial lung disease, HTN, HLD, history of DVT, HENOK on CPAP, history of carotid artery dissection, thrombophilia, long-term anticoagulation with Coumadin, history of bovine aortic valve replacement with aortic root repair in 2014 at [facility], history of IVC filter placement who presents to ED at the referral of PCP secondary to positive blood cultures along with fever and chills off and on x2 months. Strep anginosus Bacteremia with bioprosthetic AV endocarditis - Blood clx 04/01 with strep anginosus in 4/4 bottles, blood clx 04/04 negative - WARREN 04/02 demonstrated 0.5cm x 0.5cm vegetation on aortic valve annulus - PICC in place 04/07 - continue Ceftriaxone /. Formal ID consult pending. Hx of Bovine AVR with aortic root repair in 2014 at [facility] HTN HLD continue metoprolol hold losartan/hctz. BP normotensive currently continue statin HX of DVT/PE Presence of IVC filter continue heparin drip. Discussed with Cardiology, with no plans for surgery (patient does not need tunneled catheter) - Coumadin resumed 04/04- getting 7 mg daily for past 2 days, INR still 1.3, will give 7 mg again today. Check INR in am for further dosing Anemia Hb relatively stable at 10.5 Outpatient anemia panel revealed iron 35, transferrin saturation 14, ferritin 720, B12 379, folic acid 18.4 Possibly in setting of acute illness given prolonged state and adequate iron stores No signs or symptoms of bleeding, will monitor closely Hyponatremia- resolved. HCTZ on hold. L lower back pain- Due to back sprain/injury while fishing - MRI negative for diskitis - conservative management, tylenol PRN HENOK of CPAP- CPAP at COPD/ILD continue home inhalers no acute exacerbation Alcohol abuse- no S/S withdrawal. Recommend cessation. Neck muscle spasm- flexeril, voltaren gel, heat pad prn Exposure to COVID patient 04/07- asymptomatic, check COVID swab. DVT ppx: heparin drip, coumadin bridging until INR therapeutic Discharge: Pending ID consult and home antibiotic set up. PICC line in place. Admission and Anticipated Discharge Date Admission Date: April 01, 2022 Subjective His who visited him now has covid and he was shifted to a different room yesterday. He overnight did not sleep correctly and now has left neck pain. Trying to move the neck as allowed by pain. No fever, chills, nausea, vomiting. Still waiting for ID eval. Physical Exam Physical Exam: General: Sitting comfortably in bed, not in distress, on room air HEENT: EOMI, HEMANTH, MMM. Chest: Clear breath sounds bilaterally, no wheezes or crackles CVS: Regular rate and rhythm, normal heart sounds Abdomen: Soft, non tender, not distended, normal bowel sounds Neuro: Awake, alert, oriented, conversing well, non focal Extremities: No cyanosis, clubbing or edema Results & Data Results & Data ([facility]) Vital Signs (Past 12 Hours) Vital Signs Temp Pulse Pulse Pulse Resp BP BP 04/08/22 12:13 36.6 C 76 16 95/65 L 04/08/22 07:20 36.7 C 81 16 118/75 04/08/22 06:45 83 04/08/22 04:32 37.0 C 66 19 118/69 Pulse Ox O2 Del Method 04/08/22 12:13 99 04/08/22 07:20 97 Room Air 04/08/22 06:45 04/08/22 04:32 98 Room Air Medications Administered Current Inpatient Medications Acetaminophen (Acetaminophen 325 Mg Tab) 650 mg PO Q4H PRN PRN Reason: Pain or Fever Stop: 05/01/22 15:30 Last Admin: 04/08/22 06:17 Dose: 650 mg Al Hydrox/Mg Hydrox/Simethicone (Aluminum/Magnesium Susp 30 Ml Udc) 15 ml PO Q4H PRN PRN Reason: Dyspepsia Stop: 05/01/22 15:30 Albuterol (Albuterol Hfa 8 Gm Inhaler) 2 puffs INH Q4H PRN PRN Reason: Shortness Of Breath Stop: 05/01/22 15:30 Atorvastatin Calcium (Atorvastatin 40 Mg Tab) 80 mg PO HS [facility] Stop: 05/01/22 20:59 Last Admin: 04/07/22 20:49 Dose: 80 mg Diclofenac Sodium (Diclofenac Sod 1% Gel 100 Gm Tube) 2 gm EXT TID [facility]; Protocol Stop: 05/08/22 13:59 Fenofibrate (Fenofibrate Nanocrystallized 48 Mg Tablet) 48 mg PO DAILY [facility] Stop: 05/07/22 08:59 Last Admin: 04/08/22 09:22 Dose: 48 mg Ceftriaxone Sodium 2,000 mg/ (Dextrose) 70 mls @ 100 mls/hr IV Q24H [facility]; Protocol Stop: 04/15/22 11:59 Last Admin: 04/08/22 12:11 Dose: 100 mls/hr Heparin Sodium/Dextrose (Heparin Sodium/Dextrose) 25,000 units in 500 mls @ 26 mls/hr IV .[id number] [facility]; Protocol Stop: 05/02/22 12:59 Last Admin: 04/08/22 07:15 Dose: 1,300 units/hr, 26 mls/hr Lorazepam (Lorazepam 1 Mg Tab) 1 - 3 mg PO UD PRN; Protocol PRN Reason: EtoH Withdrawal AWSS 6-10+ Stop: 05/01/22 15:30 Magnesium Hydroxide (Magnesium Hydroxide Susp 30 Ml Udc) 30 ml PO Q12H PRN PRN Reason: Constipation Stop: 05/01/22 15:30 Metoprolol Tartrate (Metoprolol Tartrate 50 Mg Tab) 50 mg PO BID [facility] Stop: 05/01/22 20:59 Last Admin: 04/08/22 09:22 Dose: 50 mg Ondansetron HCl (Ondansetron Inj 2 Mg/Ml 2 Ml Vial) 4 mg IV Q6H PRN PRN Reason: Nausea Stop: 05/01/22 15:30 Polyethylene Glycol (Polyethylene (Miralax) 17 Gm Pack) 17 gm PO DAILY PRN PRN Reason: Constipation Stop: 05/01/22 15:30 Umeclidinium [place] (Umeclidinium [place] 62.5mcg/Blister 7 Puffs/Inhaler) 1 puffs INH QAM [facility]; Protocol Stop: 05/02/22 08:59 Last Admin: 04/08/22 09:22 Dose: 1 puffs Warfarin Sodium (Warfarin Sod 2 Mg Tab) 2 mg PO DAILY@1830 [facility] Stop: 05/01/22 18:29 Last Admin: 04/07/22 18:07 Dose: 2 mg Warfarin Sodium (Warfarin Sod 5 Mg Tab) 5 mg PO NOW ONE Stop: 04/08/22 16:01 (1) Anemia Anemia type: unspecified type Qualified Code(s): D64.9 - Anemia, unspecified
[2022-04-08] MEDS: DICLOFENAC SOD 1% GEL 100 GM TUBE EXT SCH ×2 (14:15→20:28)
[2022-04-08] MEDS ORDERED: WARFARIN SOD 5 MG TAB PO ONE (16:00)
--- NOTE | 2022-04-08 17:38 | Discharge Summary ---
Date of Service April 08, 2022 Admission HPI Per Admitting Provider This is a 66 yr old M who has significant past medical history of COPD, interstitial lung disease, HTN, HLD, history of DVT, HENOK on CPAP, history of carotid artery dissection, thrombophilia, long-term anticoagulation with Coumadin, history of bovine aortic valve replacement with aortic root repair in 2015 at [facility], history of IVC filter placement who presents to ED at the referral of PCP secondary to positive blood cultures along with fever and chills off and on x2 months. Over the last 6 weeks to 2 months patient has had intermittent chills and sweats. He has not checked his temperature at home to k now if he had a true fever; however when being seen in clinic multiple times he was found to have low-grade fever around 100. In early February he was treated with a 3-week course of doxycycline due to concern for possible tickborne disease. His Lyme and Anaplasma screen were negative. He did start to feel better after the 3 weeks of doxycycline but as of late his chills and sweats have returned, c omplains of easy fatigability and generalized weakness. He was seen in clinic yesterday due to new onset back pain for the past 3 to 4 days. This back pain started after he was fishing and move the wrong way. Pain is left lower back with radiation down posterior aspect of left leg. After being seen in clinic yesterday and again finding low-grade fever he underwent full lab work-up including blood cultures. Blood cultures returned positive today growing Streptococcus. He was referred to ED Admission Exam Per Admitting Provider Constitutional: WD/WN, vitals as above, NAD, sitting up in bed, pleasant, conversing easily Head: Normocephalic, Atraumatic Eyes: PERRL, conjunctivae normal, anicteric sclerae ENMT: external ear and nose normal, oropharynx normal Neck: trachea midline, no thyromegaly normal visual inspection Respiratory: normal respiratory effort, lungs clear to auscultation, no wheeze, rales, rhonchi. Normal insp/exp effort, no accessory muscle use Cardiovascular: RRR, 2/6 RONEL noted RUSB, no edema Vessels: no JVD or carotid bruit Chest: normal inspection of chest Abdomen: normal bowel sounds, soft, nontender, no hepatosplenomegaly Musculoskeletal: no cyanosis or clubbing, extremities motor strength 5/5 Skin: no rashes, warm and dry normal turgor Neurologic: PERRL, EOMI, accommodation nl, no face palsy, no dysarthria CN's II-XI intact bilaterally and moves all extremities Psychiatric: A+Ox3, euthymic affect : deferred Principal Diagnosis Strep anginosus bacteremia with bioprosthetic AV endocarditis Discharge Exam General: Sitting comfortably in bed, not in distress, on room air HEENT: EOMI, HEMANTH, MMM. Chest: Clear breath sounds bilaterally, no wheezes or crackles CVS: Regular rate and rhythm, normal heart sounds Abdomen: Soft, non tender, not distended, normal bowel sounds Neuro: Awake, alert, oriented, conversing well, non focal Extremities: No cyanosis, clubbing or edema Discharge Data Allergies Allergy/AdvReac Type Severity Reaction Status Date / Time No Known Allergies Allergy Verified 04/01/22 10:18 Consultations 04/01/22 12:22 ED Decision to Admit Stat 04/01/22 13:12 Consult Cardiology Routine 04/01/22 14:25 Consult Anesthesiology Routine 04/02/22 08:00 Consult Infectious Diseases Routine Procedures Performed Operation Date: 04/02/22 07:15 Actual Procedures p Echo Transesophageal - Ezra Isaac DO Ordered Studies 04/01/22 09:20 MR lumbar spine wo/w con Stat MR thoracic spine wo/w con Stat Hospital Course (1) Bacteremia: (2) Subtherapeutic international normalized ratio (INR): (3) Hyponatremia: (4) Anemia: (5) Left lumbar radiculopathy: Plan This is a 66 yr old M who has significant past medical history of COPD, interstitial lung disease, HTN, HLD, history of DVT, HENOK on CPAP, history of carotid artery dissection, thrombophilia, long-term anticoagulation with Coumadin, history of bovine aortic valve replacement with aortic root repair in 2015 at [facility], history of IVC filter placement who presents to ED at the referral of PCP secondary to positive blood cultures along with fever and chills off and on x2 months. Strep anginosus Bacteremia with bioprosthetic AV endocarditis - Blood clx 04/01 with strep anginosus in 4/4 bottles, blood clx 04/04 negative - WARREN 04/02 demonstrated 0.5cm x 0.5cm vegetation on aortic valve annulus - PICC in place 04/07 - continue Ceftriaxone D4/42. - Discussed with ID Dr Fernandes today who recommended transfer to [facility] for cardiothoracic surgery evaluation for possible surgery given prosthetic valve endocarditis - Spoke with Dr Roe (cardio, [facility]) and Dr Garcia (Cardiothoracic surgery, [facility]) who accepted the patient under Dr Roe's service. Will hold coumadin and continue heparin drip as there is potential for surgical intervention for the valve. Hx of Bovine AVR with aortic root repair in 2014 at [facility] HTN HLD continue metoprolol Continue to hold losartan/hctz given low normal BPy continue statin HX of DVT/PE Presence of IVC filter - continue heparin drip.hold further coumadin as stated above. Anemia Hb relatively stable at 10.5 Outpatient anemia panel revealed iron 35, transferrin saturation 14, ferritin 720, B12 379, folic acid 18.4 Possibly in setting of acute illness given prolonged state and adequate iron stores No signs or symptoms of bleeding, will monitor closely Hyponatremia-resolved. HCTZ on hold. L lower back pain-Due to back sprain/injury while fishing - MRI negative for diskitis - conservative management, tylenol PRN HENOK of CPAP-CPAP at COPD/ILD continue home inhalers no acute exacerbation Alcohol abuse-no S/S withdrawal. Recommend cessation. Neck muscle spasm- due to malposition during sleep last night. prn flexeril, voltaren gel, heat pad prn Exposure to COVID patient 04/07- asymptomatic, COVID swab sent- still pending DVT ppx: heparin drip Discharge: Transfer to [facility] Current Inpatient Medications Acetaminophen (Acetaminophen 325 Mg Tab) 650 mg PO Q4H PRN PRN Reason: Pain or Fever Stop: 05/01/22 15:30 Last Admin: 04/08/22 06:17 Dose: 650 mg Al Hydrox/Mg Hydrox/Simethicone (Aluminum/Magnesium Susp 30 Ml Udc) 15 ml PO Q4H PRN PRN Reason: Dyspepsia Stop: 05/01/22 15:30 Albuterol (Albuterol Hfa 8 Gm Inhaler) 2 puffs INH Q4H PRN PRN Reason: Shortness Of Breath Stop: 05/01/22 15:30 Atorvastatin Calcium (Atorvastatin 40 Mg Tab) 80 mg PO HS [facility] Stop: 05/01/22 20:59 Last Admin: 04/07/22 20:49 Dose: 80 mg Diclofenac Sodium (Diclofenac Sod 1% Gel 100 Gm Tube) 2 gm EXT TID [facility]; Protocol Stop: 05/08/22 13:59 Last Admin: 04/08/22 14:15 Dose: 2 gm Fenofibrate (Fenofibrate Nanocrystallized 48 Mg Tablet) 48 mg PO DAILY [facility] Stop: 05/07/22 08:59 Last Admin: 04/08/22 09:22 Dose: 48 mg Ceftriaxone Sodium 2,000 mg/ (Dextrose) 70 mls @ 100 mls/hr IV Q24H [facility]; Protocol Stop: 04/15/22 11:59 Last Infusion: 04/08/22 12:53 Dose: Infused Heparin Sodium/Dextrose (Heparin Sodium/Dextrose) 25,000 units in 500 mls @ 26 mls/hr IV .[id number] [facility]; Protocol Stop: 05/02/22 12:59 Last Admin: 04/08/22 07:15 Dose: 1,300 units/hr, 26 mls/hr Lorazepam (Lorazepam 1 Mg Tab) 1 - 3 mg PO UD PRN; Protocol PRN Reason: EtoH Withdrawal AWSS 6-10+ Stop: 05/01/22 15:30 Magnesium Hydroxide (Magnesium Hydroxide Susp 30 Ml Udc) 30 ml PO Q12H PRN PRN Reason: Constipation Stop: 05/01/22 15:30 Metoprolol Tartrate (Metoprolol Tartrate 50 Mg Tab) 50 mg PO BID [facility] Stop: 05/01/22 20:59 Last Admin: 04/08/22 09:22 Dose: 50 mg Ondansetron HCl (Ondansetron Inj 2 Mg/Ml 2 Ml Vial) 4 mg IV Q6H PRN PRN Reason: Nausea Stop: 05/01/22 15:30 Polyethylene Glycol (Polyethylene (Miralax) 17 Gm Pack) 17 gm PO DAILY PRN PRN Reason: Constipation Stop: 05/01/22 15:30 Umeclidinium [place] (Umeclidinium [place] 62.5mcg/Blister 7 Puffs/Inhaler) 1 puffs INH QAM [facility]; Protocol Stop: 05/02/22 08:59 Last Admin: 04/08/22 09:22 Dose: 1 puffs Total Time Total Time Spent Total Time Spent (In Minutes): 60 Discharge Plan Discharge Items Patient Disposition: Transfer Acute Care Hospital Reason For Visit: fever, possible endocarditis Discharge Diagnosis: Prosthetic AV endocarditis with strep bacteremia Activity: Resume your previous activity Non-emergency contact: Primary Care Provider Call non-emergency contact if: you have any medication questions Follow-up/Referrals: Dav Parker DO [Primary Care Provider] - Diet: Heart Healthy Stand-Alone Forms: My [facility] [employer] Medications and DC Order Prescriptions: No Action atorvastatin 80 mg tablet 80 mg PO HS warfarin 2 mg tablet 2 - 4 mg PO HS Rx Instructions: take 1-2 tabs daily as directed metoprolol tartrate 50 mg tablet 50 mg PO BID albuterol sulfate 90 mcg/actuation HFA aerosol inhaler 2 inh INHALATION Q4H PRN (Reason: Shortness Of Breath) losartan-hydrochlorothiazide 50-12.5 mg tablet 1 tab PO QAM Spiriva with HandiHaler 18 mcg capsule, w/inhalation device 1 inh INHALATION QAM fenofibrate 54 mg tablet 54 mg PO QAM Admission Data Admit Date/Time: 04/01/22 12:41 Attending Provider: Jon Ramirez Admit Provider: Jon Ramirez Primary Care Provider: Dav Parker Other Providers: Jon Ramirez ; Ezra Isaac ; Payal Crowe ; Jannie Jin ; Jacquie Ramirez ; Adriana Conway ; David Mayes ; Bradly Catherine ; Peter Noyola ; Henok Douglass ; Marjan Douglass ; Elías Sanchez ; Chelsea Bautista ; Neymar Martinez Gary R. ; Dariusz Wray ; Merrill Reeder ; Sugar Moreno ; Raleigh Hardwick ; Joyce Mejia ; Eva Hardwick ; Nicho Marshall ; Tricia Moe ; Josr Prado ; Sara Whaley ; Paula Doan ; Micaela Munguia ; Main Deluna ; Chely Mendoza ; Gely Gómez ; Ritika Arvizu ; Loree Walker ; Isaac Walker V ; Stevie Bardales ; Jannie Bray ; Gallo Powell ; Kelly Herman ; Isaac Sood ; Navin Moreno ; Dragan Omalley ; Jadny Castro ; Kadi Claudio ; Isaac Mitchell ; Hank Bensno ; Girish Reeder ; Unique Canchola ; Jonn Cueto ; Jw Davies ; Dante Landry ; Jonn Harp ; David Cardoza Jr ; Isatu Wan ; Mary Grijalva ; Tara Carmichael ; Main Negrete ; Adriana Gonzalez ; Henok Fish ; Abner Hernandez I. ; Mehnaz Kim ; Erick Goldstein ; Martha Mcgraw ; Fernie Mandel I. ; Douglas Fernandes II ; Zonia Peters ; Raleigh Haines ; Surjit Shaw
--- NOTE | 2022-04-08 17:38 | Communication Note ---
Date of Service: April 08, 2022 Current Inpatient Medications Acetaminophen (Acetaminophen 325 Mg Tab) 650 mg PO Q4H PRN PRN Reason: Pain or Fever Stop: 05/01/22 15:30 Last Admin: 04/08/22 17:34 Dose: 650 mg Al Hydrox/Mg Hydrox/Simethicone (Aluminum/Magnesium Susp 30 Ml Udc) 15 ml PO Q4H PRN PRN Reason: Dyspepsia Stop: 05/01/22 15:30 Albuterol (Albuterol Hfa 8 Gm Inhaler) 2 puffs INH Q4H PRN PRN Reason: Shortness Of Breath Stop: 05/01/22 15:30 Atorvastatin Calcium (Atorvastatin 40 Mg Tab) 80 mg PO HS [facility] Stop: 05/01/22 20:59 Last Admin: 04/07/22 20:49 Dose: 80 mg Diclofenac Sodium (Diclofenac Sod 1% Gel 100 Gm Tube) 2 gm EXT TID [facility]; Protocol Stop: 05/08/22 13:59 Last Admin: 04/08/22 14:15 Dose: 2 gm Fenofibrate (Fenofibrate Nanocrystallized 48 Mg Tablet) 48 mg PO DAILY [facility] Stop: 05/07/22 08:59 Last Admin: 04/08/22 09:22 Dose: 48 mg Ceftriaxone Sodium 2,000 mg/ (Dextrose) 70 mls @ 100 mls/hr IV Q24H [facility]; Protocol Stop: 04/15/22 11:59 Last Infusion: 04/08/22 12:53 Dose: Infused Heparin Sodium/Dextrose (Heparin Sodium/Dextrose) 25,000 units in 500 mls @ 26 mls/hr IV .[id number] [facility]; Protocol Stop: 05/02/22 12:59 Last Admin: 04/08/22 07:15 Dose: 1,300 units/hr, 26 mls/hr Lorazepam (Lorazepam 1 Mg Tab) 1 - 3 mg PO UD PRN; Protocol PRN Reason: EtoH Withdrawal AWSS 6-10+ Stop: 05/01/22 15:30 Magnesium Hydroxide (Magnesium Hydroxide Susp 30 Ml Udc) 30 ml PO Q12H PRN PRN Reason: Constipation Stop: 05/01/22 15:30 Metoprolol Tartrate (Metoprolol Tartrate 50 Mg Tab) 50 mg PO BID [facility] Stop: 05/01/22 20:59 Last Admin: 04/08/22 09:22 Dose: 50 mg Ondansetron HCl (Ondansetron Inj 2 Mg/Ml 2 Ml Vial) 4 mg IV Q6H PRN PRN Reason: Nausea Stop: 05/01/22 15:30 Polyethylene Glycol (Polyethylene (Miralax) 17 Gm Pack) 17 gm PO DAILY PRN PRN Reason: Constipation Stop: 05/01/22 15:30 Umeclidinium [place] (Umeclidinium [place] 62.5mcg/Blister 7 Puffs/Inhaler) 1 puffs [facility]; Protocol Stop: 05/02/22 08:59 Last Admin: 04/08/22 09:22 Dose: 1 puffs
[2022-04-08] MEDS: ATORVASTATIN 40 MG TAB PO SCH (20:58)
--- NOTE | 2022-04-08 21:42 | Electrocardiogram Report ---
Test Reason : Blood Pressure : / mmHG Vent. Rate : 077 BPM Atrial Rate : 077 BPM P-R Int : 142 ms QRS Dur : 082 ms QT Int : 406 ms P-R-T Axes : 010 001 063 degrees QTc Int : 459 ms Normal sinus rhythm Nonspecific ST and T wave abnormality Abnormal ECG When compared with ECG of 01-APR-2022 09:38, Nonspecific T wave abnormality has replaced inverted T waves in Anterior leads Nonspecific T wave abnormality now evident in Lateral leads Confirmed by Saman Tyler ([id number]) on 04/08/2022 9:41:46 PM Referred By: Ruth Alonzo Confirmed By:Saman Tyler
[2022-04-08] MEDS ORDERED: GABAPENTIN 100 MG CAP PO STA (22:27)
[2022-04-09] MEDS: HEPARIN SODIUM/DEXTROSE 25,000 UNITS/500 ML BAG IV SCH ×3 (02:02→20:00)
[2022-04-09 06:23] LABS: Hematocrit (blood only) 30.3 % (40.1-51.0); Hemoglobin 10.2 g/dl (14.0-18.0)
[2022-04-09 06:48] LABS: INR 1.5 (0.9-1.1); Partial Thromboplastin Ratio 2.7; Prothrombin Time 15.9 Seconds (9.0-12.0)
[2022-04-09 06:54] LABS: Partial Thromboplastin Time 73.4 Seconds (21.0-31.0)
[2022-04-09 07:09] LABS: Calcium 9.5 mg/dl (8.5-10.1); Creatinine Clr Calc Pharmacy 73.7 ml/min; Est GFR (African American) 89.2 ml/min
[2022-04-09] MEDS: DICLOFENAC SOD 1% GEL 100 GM TUBE EXT SCH ×3 (07:56→19:53)
[2022-04-09] MEDS: GABAPENTIN 100 MG CAP PO SCH ×3 (07:56→19:58)
[2022-04-09] MEDS: FENOFIBRATE NANOCRYSTALLIZED 48 MG TABLET PO SCH (07:58)
[2022-04-09] MEDS: METOPROLOL TARTRATE 50 MG TAB PO SCH ×2 (07:58→19:59)
--- NOTE | 2022-04-09 09:34 | Cardiology Progress Note ---
Date of Service April 09, 2022 Assessment & Plan (1) Endocarditis of prosthetic aortic valve: (2) Bacteremia due to Streptococcus: (3) S/P AVR (aortic valve replacement): Plan Status post April 30, 2015 aortic valve replacement with a #23 mm pericardial valve and replacement of the ascending aorta with a #[address] Bakari Muir at [facility]. Postoperative course complicated by right lower extremity DVT, bilateral PE, bilateral DVT despite supratherapeutic INR status post IVC filter placement, confusion/amnesia attributed to transient delirium, TIA, possible right carotid dissection Patient admitted on 04/01/2022 with bacteremia, blood cultures with Streptococcus anginosus WARREN on 04/02/2022 with a 0.5 x 0.5 cm mobile echodensity attached to the bioprosthetic aortic valve annular sewing ring or strut on the ventricular side of the valve, bioprosthetic aortic valve endocarditis. Patient afebrile since 04/02/2022 at 19:00 Cultures on 04/04/2022 with no growth. No evidence of persistent bacteremia No evidence of embolic phenomenon No other sites of infection No overt evidence of valve dysfunction via 04/06/2022 transthoracic echo No signs or symptoms of heart failure No heart block or arrhythmias on continuous telemetry monitoring IV antibiotic therapy as per Infectious Disease. Follow-up transesophageal echocardiography (WARREN) in 4 weeks discussed. Outpatient cardiology follow-up at [facility]. Please contact with any questions or concerns. Admission and Anticipated Discharge Date Admission Date: April 01, 2022 Supervising Physician Co-Signing Physician Notes Chart reviewed assessment as above. No pressing issues to suggest need for urgent valve replacement. Subjective Patient seen and examined. Chart, medications, and telemetry reviewed. Notes plans for [place] [facility]. Frustrated. Feeling well except for cervical neck discomfort. No chest pain, palpitations, dyspnea, orthopnea, PND, or peripheral edema. Afebrile since 04/02/2022 at 19:00. Under investigation for Covid-19. symptomatic, testing positive for Covid-19 on . Last exposure was on 04/05/2022. EKG on April 07, 2022 revealed normal sinus rhythm at [address] and T wave abnormality Continuous telemetry monitoring demonstrates sinus in the 60's to 70's. No arrhythmias. April 02, 2022 WARREN Interpretation Summary ([facility], Dr. Isaac): Bioprosthetic aortic valve vegetation present. There is a 0.5 x 0.5 cm mobile echodensity attached to the bioprosthetic aortic valve annular sweing ring or strut on the ventricular side of the valve. Bioprosthetic leaflets are thin and move normally. No bioprosthetic aortic valve regurgitation. EF 60-65%. April 06, 2022 TTE Interpretation Summary ([facility], Dr. Woodall): Normal size LV. Mild concentric LVH. Normal LV wall motion. EF 60-65%. There is a bioprosthetic aortic valve. Bioprosthetic leaflets are thick and move well. Gradient is normal for this prosthetic aortic valve. No aortic regurgitation. Normal mitral valve anatomy. Mild mitral regurgitation. No vegetations visualized. Review of Systems Review of Systems: Complete review of systems is as stated above, negative, or noncontributory. Physical Exam Physical Exam: General: A&Ox3. NAD. HENT: Normocephalic. Atraumatic. Eyes: PER. Conjunctiva pink, sclera clear. Neck: No JVD. Heart: RRR, 70 bpm. Grade II/ systolic murmur in the outflow tract. No diastolic murmur. No rub. Lungs: Clear to auscultation. Abdomen: +BS. Extremities: No clubbing, cyanosis, or edema. No evidence of embolic phenomenon. Limited neurological examination is without focal deficits. Pulses: radial=2/4, posterior tibial=2/4. Results & Data ([facility]) Vital Signs (Past 12 Hours) Vital Signs Temp Pulse Pulse Resp BP Pulse Ox O2 Del Method 04/09/22 08:00 65 04/09/22 07:13 36.3 C L 75 18 127/78 97 Room Air 04/09/22 03:00 36.6 C 70 19 109/66 94 Room Air 04/08/22 23:59 66 04/08/22 22:26 36.6 C 78 18 120/78 95 Room Air Laboratory Results Laboratory Results - last 24 hr 04/08/22 04/09/22 04/09/22 Unknown 05:35 05:35 Hgb 10.2 L Hct 30.3 L PT 15.9 H INR 1.5 H APTT 73.4 H* PTT Ratio 2.7 Sodium Potassium Chloride Carbon Dioxide Anion Gap BUN Creatinine Est Cr Clr Drug Dosing Est GFR ( Amer) Est GFR (Non-Af Amer) BUN/Creatinine Ratio Glucose Calcium SARS-CoV-2, RNA, NAAT NEGATIVE 04/09/22 05:35 Hgb Hct PT INR APTT PTT Ratio Sodium 137 Potassium 4.0 Chloride 105 Carbon Dioxide 24 Anion Gap 8 BUN 8 Creatinine 1.00 Est Cr Clr Drug Dosing 73.7 Est GFR ( Amer) 89.2 Est GFR (Non-Af Amer) 77.0 BUN/Creatinine Ratio 8.0 L Glucose 94 Calcium 9.5 SARS-CoV-2, RNA, NAAT
[2022-04-09] MEDS: UMECLIDINIUM BROMIDE 62.5MCG/BLISTER 7 PUFFS/INHALER INH SCH (10:23)
[2022-04-09] MEDS: cefTRIAXone SODIUM 2,000 MG in DEXTROSE 5% 50 ML IV SCH (11:42)
--- NOTE | 2022-04-09 12:50 | Hospitalist Progress Note ---
Date of Service April 09, 2022 Assessment & Plan (1) Bacteremia: (2) Subtherapeutic international normalized ratio (INR): (3) Hyponatremia: (4) Anemia: (5) Left lumbar radiculopathy: Plan This is a 66 yr old M who has significant past medical history of COPD, interstitial lung disease, HTN, HLD, history of DVT, HENOK on CPAP, history of carotid artery dissection, thrombophilia, long-term anticoagulation with Coumadin, history of bovine aortic valve replacement with aortic root repair in [address] [facility], history of IVC filter placement who presents to ED at the referral of PCP secondary to positive blood cultures along with fever and chills off and on x2 months. Strep anginosus Bacteremia with bioprosthetic AV endocarditis - Blood clx 04/01 with strep anginosus in 4/4 bottles, blood clx 04/04 negative - WARREN 04/02 demonstrated 0.5cm x 0.5cm vegetation on aortic valve annulus - PICC in place 04/07 - continue Ceftriaxone D5/42. - Discussed with ID Dr Fernandes yesterday and today who recommended cardiothoracic surgery evaluation for possible surgery given prosthetic valve endocarditis and did not recommend discharging home on IV antibiotics prior to cardiothoracic surgery evaluation. Patient demanding to be able to speak to ID himself- formal consult placed. - 04/08: Spoke with Dr Roe (cardio, [facility] [place]) and Dr Garcia (Cardiothoracic surgery, [facility] [place]) who accepted the patient under Dr Roe's service. Will hold coumadin and continue heparin drip as there is potential for surgical intervention for the valve. - 04/09- Patient states he might rather go to [place] rather than [facility] for cardiothoracic surgery evaluation but has not made up mind yet. If he decides to go to [place], will initiate transfer process to [place]. I also texted our cardiology team to let know of the plan. Hx of Bovine AVR with aortic root repair in [address] [facility] HTN HLD continue metoprolol Continue to hold losartan/hctz given low normal BPy continue statin HX of DVT/PE Presence of IVC filter - continue heparin drip.hold further coumadin as stated above. Anemia Hb relatively stable at 10.5 Outpatient anemia panel revealed iron 35, transferrin saturation 14, ferritin 720, B12 379, folic acid 18.4 Possibly in setting of acute illness given prolonged state and adequate iron stores No signs or symptoms of bleeding, will monitor closely Hyponatremia-resolved. HCTZ on hold. L lower back pain-Due to back sprain/injury while fishing - MRI negative for diskitis - conservative management, tylenol PRN HENOK of CPAP-CPAP at HS COPD/ILD continue home inhalers no acute exacerbation Alcohol abuse-no S/S withdrawal. Recommend cessation. Neck muscle spasm- due to malposition during sleep- continue gabapentin, prn flexeril, voltaren gel, heat pad prn Exposure to COVID patient 04/07- asymptomatic, COVID swab 04/08 negative. Per infection control, continue isolation for now, repeat covid test tomorrow- if still negative and asymptomatic, isolation can be discontinued. DVT ppx: heparin drip Discharge: Pending transfer to tertiary center for CT surgery evaluation. He was accepted at [facility] under cardio service yesterday but no bed available until now. Patient now states he might rather go to [place]- will await his final decision prior to transfer. Updated daughter over the phone Admission and Anticipated Discharge Date Admission Date: April 01, 2022 Subjective He is very upset regarding the need for transfer or cardiothoracic surgery evaluation. He states he would rather sign a form and go home on iv antibiotics with repeat WARREN rather than go through the transfer. He was demanding to be able to speak to the ID physician himself. I spoke to Dr Fernandes regarding the situation who stated his recommendation would still be the same and if we would like a formal consult, it has to be placed again. Still has neck pain- states flexeril did not help but gabapentin somewhat helped, however he would like to wait and see how the tid dosing would help prior to deciding on increasing the dose. Physical Exam Physical Exam: General: Sitting comfortably in bed, not in distress, on room air HEENT: EOMI, HEMANTH, MMM. Chest: Clear breath sounds bilaterally, no wheezes or crackles CVS: Regular rate and rhythm, normal heart sounds Abdomen: Soft, non tender, not distended, normal bowel sounds Neuro: Awake, alert, oriented, conversing well, non focal Extremities: No cyanosis, clubbing or edema Results & Data Results & Data ([place]) Vital Signs (Past 12 Hours) Vital Signs Temp Pulse Pulse Resp BP Pulse Ox O2 Del Method 04/09/22 11:45 36.7 C 83 18 141/69 H 99 Room Air 04/09/22 08:00 65 04/09/22 07:13 36.3 C L 75 18 127/78 97 Room Air 04/09/22 03:00 36.6 C 70 19 109/66 94 Room Air Laboratory Results Short CBC 04/09/22 Range/Units 05:35 Hgb 10.2 L (14.0-18.0) g/dl Hct 30.3 L (40.1-51.0) % BMP 04/09/22 05:35 Sodium 137 Potassium 4.0 Chloride 105 Carbon Dioxide 24 BUN 8 Creatinine 1.00 Glucose 94 Calcium 9.5 Medications Administered Current Inpatient Medications Acetaminophen (Acetaminophen 325 Mg Tab) 650 mg PO Q4H PRN PRN Reason: Pain or Fever Stop: 05/01/22 15:30 Last Admin: 04/08/22 17:34 Dose: 650 mg Al Hydrox/Mg Hydrox/Simethicone (Aluminum/Magnesium Susp 30 Ml Udc) 15 ml PO Q4H PRN PRN Reason: Dyspepsia Stop: 05/01/22 15:30 Albuterol (Albuterol Hfa 8 Gm Inhaler) 2 puffs INH Q4H PRN PRN Reason: Shortness Of Breath Stop: 05/01/22 15:30 Atorvastatin Calcium (Atorvastatin 40 Mg Tab) 80 mg PO HS MONALISA Stop: 05/01/22 20:59 Last Admin: 04/08/22 20:58 Dose: 80 mg Diclofenac Sodium (Diclofenac Sod 1% Gel 100 Gm Tube) 2 gm EXT TID MONALISA; Protoc ol Stop: 05/08/22 13:59 Last Admin: 04/09/22 07:56 Dose: Not Given Fenofibrate (Fenofibrate Nanocrystallized 48 Mg Tablet) 48 mg PO DAILY MONALISA Stop: 05/07/22 08:59 Last Admin: 04/09/22 07:58 Dose: 48 mg Gabapentin (Gabapentin 100 Mg Cap) 100 mg PO TID MONALISA Stop: 05/09/22 08:59 Last Admin: 04/09/22 07:56 Dose: 100 mg Ceftriaxone Sodium 2,000 mg/ (Dextrose) 70 mls @ 100 mls/hr IV Q24H [facility]ALISA; Protocol Stop: 04/15/22 11:59 Last Admin: 04/09/22 11:42 Dose: 100 mls/hr Heparin Sodium/Dextrose (Heparin Sodium/Dextrose) 25,000 units in 500 mls @ 25 mls/hr IV .Q20H [facility]; Protocol Stop: 05/02/22 12:59 Last Titration: 04/09/22 07:06 Dose: 1,250 units/hr, 25 mls/hr Lorazepam (Lorazepam 1 Mg Tab) 1 - 3 mg PO UD PRN; Protocol PRN Reason: EtoH Withdrawal AWSS 6-10+ Stop: 05/01/22 15:30 Magnesium Hydroxide (Magnesium Hydroxide Susp 30 Ml Udc) 30 ml PO Q12H PRN PRN Reason: Constipation Stop: 05/01/22 15:30 Metoprolol Tartrate (Metoprolol Tartrate 50 Mg Tab) 50 mg PO BID MONALISA Stop: 05/01/22 20:59 Last Admin: 04/09/22 07:58 Dose: 50 mg Ondansetron HCl (Ondansetron Inj 2 Mg/Ml 2 Ml Vial) 4 mg IV Q6H PRN PRN Reason: Nausea Stop: 05/01/22 15:30 Polyethylene Glycol (Polyethylene (Miralax) 17 Gm Pack) 17 gm PO DAILY PRN PRN Reason: Constipation Stop: 05/01/22 15:30 Umeclidinium [place] (Umeclidinium [place] 62.5mcg/Blister 7 Puffs/Inhaler) 1 puffs INH QAM [facility]; Protocol Stop: 05/02/22 08:59 Last Admin: 04/09/22 10:23 Dose: 1 puffs (1) Anemia Anemia type: unspecified type Qualified Code(s): D64.9 - Anemia, unspecified
[2022-04-09 13:53] LABS: Partial Thromboplastin Ratio 2.2
[2022-04-09 14:16] LABS: Partial Thromboplastin Time 61.8 Seconds (21.0-31.0)
[2022-04-09] MEDS ORDERED: BACLOFEN 10 MG TAB PO PRN (15:32)
[2022-04-09] MEDS ORDERED: WARFARIN SOD 5 MG TAB PO ONE (16:01)
--- NOTE | 2022-04-09 16:33 | Communication Note ---
Date of Service: April 09, 2022 Had long discussion with patient and daughter. Complex history with prior bioprosthetic aortic valve replacement and aortic repair with postoperative comp lications of carotid dissection TIA in 2015. 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 Organism Streptococcus with small vegetation but no valve degeneration or dehiscence. No perivalvular abscess. No conduction abnormalities. No thromboembolic phenomena or high risk features. Discussed guidelines for management of prosthetic valve endocarditis which primarily recommend prosthesis removal. Obviously surgical reintervention at increased risk in this patient and patient fully aware and reluctant to consider repeat surgery. Trial of medical therapy appears reasonable with patient and daughter fully aware of strong possibility of persistent infection despite favorable features present. Decision made with shared decision making with patient and daughter. Will treat with IV antibiotics with follow-up transesophageal echocardiogram 2 to 3 weeks, serial EKGs and close clinical follow-up through cardiology. Recommendations: Return to full warfarin anticoagulation with Lovenox bridge. Arrange for home IV antibiotic therapy planned 4 to 6-week course Follow-up cardiology 1 week post discharge.
[2022-04-09] MEDS: LIDOCAINE 5% 1 PATCH TD SCH (18:29)
[2022-04-09] MEDS: ACETAMINOPHEN 325 MG TAB PO PRN (19:58)
[2022-04-09] MEDS: ATORVASTATIN 40 MG TAB PO SCH (19:59)
[2022-04-10] MEDS: FENOFIBRATE NANOCRYSTALLIZED 48 MG TABLET PO SCH (08:37)
[2022-04-10] MEDS: DICLOFENAC SOD 1% GEL 100 GM TUBE EXT SCH ×3 (08:37→20:26)
[2022-04-10] MEDS: GABAPENTIN 100 MG CAP PO SCH ×3 (08:37→20:26)
[2022-04-10] MEDS: LIDOCAINE 5% 1 PATCH TD SCH (08:38)
[2022-04-10] MEDS: METOPROLOL TARTRATE 50 MG TAB PO SCH ×2 (08:38→20:26)
[2022-04-10] MEDS: UMECLIDINIUM BROMIDE 62.5MCG/BLISTER 7 PUFFS/INHALER INH SCH (08:39)
[2022-04-10 08:57] LABS: Hematocrit (blood only) 30.3 % (40.1-51.0); Hemoglobin 10.4 g/dl (14.0-18.0); Mean Corpuscular Hemoglobin 31.7 pg (25.0-34.0); Mean Corpuscular Hgb Conc 34.3 g/dL (32.0-36.0); Mean Corpuscular Volume 92.4 fL (80.0-100.0); Mean Platelet Volume 10.4 fL (9.4-12.4); Platelet Count 372 K/uL (130-400); RDW Coefficient of Variation 12.8 % (11.5-14.5); RDW Standard Deviation 43.3 fL (36.4-46.3); Red Blood Count 3.28 M/uL (4.63-6.08); White Blood Count 9.51 K/ul (4.8-10.8)
[2022-04-10 09:17] LABS: C Reactive Protein 5.03 mg/dl (0-0.5); Calcium 9.6 mg/dl (8.5-10.1); Creatinine Clr Calc Pharmacy 82.8 ml/min; Est GFR (African American) 101.8 ml/min; Est GFR (Non-African American) 87.9 ml/min; Potassium 3.7 mmol/L (3.5-5.1)
[2022-04-10 09:32] LABS: INR 1.6 (0.9-1.1); Partial Thromboplastin Ratio 2.6; Prothrombin Time 16.7 Seconds (9.0-12.0)
[2022-04-10] MEDS: cefTRIAXone SODIUM 2,000 MG in DEXTROSE 5% 50 ML IV SCH (12:40)
--- NOTE | 2022-04-10 13:02 | Hospitalist Progress Note ---
Date of Service April 10, 2022 Assessment & Plan (1) Bacteremia: (2) Subtherapeutic international normalized ratio (INR): (3) Hyponatremia: (4) Anemia: (5) Left lumbar radiculopathy: Plan This is a 66 yr old M who has significant past medical history of COPD, interstitial lung disease, HTN, HLD, history of DVT, HENOK on CPAP, history of carotid artery dissection, thrombophilia, long-term anticoagulation with Coumadin, history of bovine aortic valve replacement with aortic root repair in 2014 at [facility], history of IVC filter placement who presents to ED at the referral of PCP secondary to positive blood cultures along with fever and chills off and on x2 months. Strep anginosus Bacteremia with bioprosthetic AV endocarditis - Blood clx 04/01 with strep anginosus in / bottles, blood clx 04/04 negative - WARREN 04/02 demonstrated 0.5cm x 0.5cm vegetation on aortic valve annulus - PICC placed 04/07 - continue Ceftriaxone - Formal ID evaluation was scheduled for 04/08 but could not be completed due to technical login issues- I discussed with Dr Fernandes 04/08 and 04/[address] surgery evaluation given his prosthetic valve endocarditis. Initially plan was for inpatient transfer to [facility] for CT surgery evaluation. However, patient was very reluctant, kirstin with his prior complex surgery. Dr Woodall spoke with cardiothoracic surgeon 04/09 as well as to patient and daughter and it was decided that he would go home with IV antibiotics for at least 4-6 weeks with close OP cardio follow up with repeat WARREN in 2-3 weeks, given his complex surgical history, high risk for surgery as well as no high risk features of IE. Per Dr Woodall- " Had long discussion with patient and daughter. Complex history with prior bioprosthetic aortic valve replacement and aortic repair with postoperative complications of carotid dissection TIA in 2014. 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 Organism Streptococcus with small vegetation but no valve degeneration or dehiscence. No perivalvular abscess. No conduction abnormalities. No thromboembolic phenomena or high risk features. Discussed guidelines for management of prosthetic valve endocarditis which primarily recommend prosthesis removal. Obviously surgical reintervention at increased risk in this patient and patient fully aware and reluctant to consider repeat surgery. Trial of medical therapy appears reasonable with patient and daughter fully aware of strong possibility of persistent infection despite favorable features present. Decision made with shared decision making with patient and daughter. Will treat with IV antibiotics with follow-up transesophageal echocardiogram 2 to 3 weeks, serial EKGs and close clinical follow-up through cardiology. Hx of Bovine AVR with aortic root repair in 2014 at [facility] HTN HLD continue metoprolol Continue to hold losartan/hctz given low normal BP. Resume as indicated. continue statin HX of DVT/PE; Presence of IVC filter - continue heparin drip until INR therapeutic, currently 1.6.continue coumadin Anemia Hb relatively stable at 10.5 Outpatient anemia panel revealed iron 35, transferrin saturation 14, ferritin 720, B12 379, folic acid 18.4 Possibly in setting of acute illness given prolonged state and adequate iron stores No signs or symptoms of bleeding, will monitor closely Hyponatremia-resolved. HCTZ on hold. L lower back pain-Due to back sprain/injury while fishing - MRI negative for diskitis - conservative management, tylenol PRN HENOK of CPAP-CPAP at COPD/ILD- continue home inhalers; no acute exacerbation Alcohol abuse-no S/S withdrawal. Recommend cessation. Neck muscle spasm- due to malposition during sleep- improving, continue baclofen tid prn, lidoderm patch, gabapentin, voltaren gel, cold Exposure to COVID- asymptomatic, COVID swab 04/08 and 04/10 negative. Per infection control, can discontinue isolation. DVT ppx: heparin drip, coumadin Dispo: Stable for discharge home. Pending home IV antibiotic set up- Script provided to CM. PICC line in place. Admission and Anticipated Discharge Date Admission Date: April 01, 2022 Subjective Feels better. His neck pain is 5/10 today. patch and meds helping. He is hopeful he might be able to go home tomorrow. Discussed the logistic issues regarding the home antibiotic set up. Physical Exam Physical Exam: General: Sitting comfortably in bed, not in distress, on room air HEENT: EOMI, HEMANTH, MMM. Chest: Clear breath sounds bilaterally, no wheezes or crackles CVS: Regular rate and rhythm, normal heart sounds Abdomen: Soft, non tender, not distended, normal bowel sounds Neuro: Awake, alert, oriented, conversing well, non focal Extremities: No cyanosis, clubbing or edema Results & Data Results & Data ([facility]) Vital Signs (Past 12 Hours) Vital Signs Temp Pulse Resp BP Pulse Ox O2 Del Method 04/10/22 08:35 36.8 C 78 18 127/78 100 Room Air Laboratory Results Short CBC 04/10/22 Range/Units 08:35 WBC 9.51 (4.8-10.8) K/ul Hgb 10.4 L (14.0-18.0) g/dl Hct 30.3 L (40.1-51.0) % Plt Count 372 (130-400) K/uL BMP 04/10/22 08:28 Sodium 136 Potassium 3.7 Chloride 104 Carbon Dioxide 23 BUN 8 Creatinine 0.89 Glucose 100 H Calcium 9.6 Medications Administered Current Inpatient Medications Acetaminophen (Acetaminophen 325 Mg Tab) 650 mg PO Q4H PRN PRN Reason: Pain or Fever Stop: 05/01/22 15:30 Last Admin: 04/09/22 19:58 Dose: 650 mg Al Hydrox/Mg Hydrox/Simethicone (Aluminum/Magnesium Susp 30 Ml Udc) 15 ml PO Q4H PRN PRN Reason: Dyspepsia Stop: 05/01/22 15:30 Albuterol (Albuterol Hfa 8 Gm Inhaler) 2 puffs INH Q4H PRN PRN Reason: Shortness Of Breath Stop: 05/01/22 15:30 Atorvastatin Calcium (Atorvastatin 40 Mg Tab) 80 mg PO HS MONALISA Stop: 05/01/22 20:59 Last Admin: 04/09/22 19:59 Dose: 80 mg Baclofen (Baclofen 10 Mg Tab) 10 mg PO TID PRN PRN Reason: neck spasm Stop: 05/09/22 20:59 Last Admin: 04/09/22 15:47 Dose: 10 mg Diclofenac Sodium (Diclofenac Sod 1% Gel 100 Gm Tube) 2 gm EXT TID [facility]ALISA; Protocol Stop: 05/08/22 13:59 Last Admin: 04/10/22 08:37 Dose: 2 gm Fenofibrate (Fenofibrate Nanocrystallized 48 Mg Tablet) 48 mg PO DAILY MONALISA Stop: 05/07/22 08:59 Last Admin: 04/10/22 08:37 Dose: 48 mg Gabapentin (Gabapentin 100 Mg Cap) 100 mg PO TID MONALISA Stop: 05/09/22 08:59 Last Admin: 04/10/22 08:37 Dose: 100 mg Heparin Sodium (Beef Lung) (Heparin 10 Unit/Ml 5 Ml Flush) 5 ml FLUSH PRN PRN PRN Reason: Flush Stop: 05/10/22 10:46 Ceftriaxone Sodium 2,000 mg/ (Dextrose) 70 mls @ 100 mls/hr IV Q24H [facility]; Protocol Stop: 04/15/22 11:59 Last Admin: 04/10/22 12:40 Dose: 100 mls/hr Heparin Sodium/Dextrose (Heparin Sodium/Dextrose) 25,000 units in 500 mls @ 24 mls/hr IV .[id number] [facility]; Protocol Stop: 05/09/22 20:32 Last Titration: 04/10/22 10:11 Dose: 1,200 units/hr, 24 mls/hr Lidocaine (Lidocaine 5% 1 Patch) [facility] [place] Stop: 05/09/22 15:44 Last Admin: 04/10/22 08:38 Dose: 1 patch Lorazepam (Lorazepam 1 Mg Tab) 1 - 3 mg PO UD PRN; Protocol PRN Reason: EtoH Withdrawal AWSS 6-10+ Stop: 05/01/22 15:30 Magnesium Hydroxide (Magnesium Hydroxide Susp 30 Ml Udc) 30 ml PO Q12H PRN PRN Reason: Constipation Stop: 05/01/22 15:30 Metoprolol Tartrate (Metoprolol Tartrate 50 Mg Tab) 50 mg PO BID [facility] Stop: 05/01/22 20:59 Last Admin: 04/10/22 08:38 Dose: 50 mg Miscellaneous (Remove Lidoderm Patch) 1 each N/A DAILY@2100 [facility] Stop: 05/09/22 20:59 Last Admin: 04/09/22 23:55 Dose: 1 each Ondansetron HCl (Ondansetron Inj 2 Mg/Ml 2 Ml Vial) 4 mg IV Q6H PRN PRN Reason: Nausea Stop: 05/01/22 15:30 Polyethylene Glycol (Polyethylene (Miralax) 17 Gm Pack) 17 gm PO DAILY PRN PRN Reason: Constipation Stop: 05/01/22 15:30 Umeclidinium [place] (Umeclidinium [place] 62.5mcg/Blister 7 Puffs/Inhaler) 1 [facility]uffs [facility] [place]; Protocol Stop: 05/02/22 08:59 Last Admin: 04/10/22 08:39 Dose: 1 puffs Warfarin Sodium (Warfarin Sod 5 Mg Tab) 5 mg PO DAILY@1600 [facility] Stop: 05/10/22 15:59 (1) Anemia Anemia type: unspecified type Qualified Code(s): D64.9 - Anemia, unspecified
[2022-04-10] MEDS: ACETAMINOPHEN 325 MG TAB PO PRN ×2 (13:06→23:24)
[2022-04-10] MEDS: WARFARIN SOD 5 MG TAB PO SCH (15:56)
[2022-04-10] MEDS: HEPARIN SODIUM/DEXTROSE 25,000 UNITS/500 ML BAG IV SCH (15:57)
[2022-04-10 17:00] LABS: Partial Thromboplastin Time 74.9 Seconds (21.0-31.0)
[2022-04-10 17:10] LABS: Partial Thromboplastin Ratio 2.7
[2022-04-10] MEDS: ATORVASTATIN 40 MG TAB PO SCH (20:26)
[2022-04-10 23:57] LABS: Partial Thromboplastin Ratio 2.3
[2022-04-11 00:13] LABS: Partial Thromboplastin Time 63.4 Seconds (21.0-31.0)
[2022-04-11] MEDS: FENOFIBRATE NANOCRYSTALLIZED 48 MG TABLET PO SCH (07:59)
[2022-04-11] MEDS: METOPROLOL TARTRATE 50 MG TAB PO SCH ×2 (08:00→20:39)
[2022-04-11] MEDS: LIDOCAINE 5% 1 PATCH TD SCH (08:00)
[2022-04-11] MEDS: GABAPENTIN 100 MG CAP PO SCH ×3 (08:00→20:37)
[2022-04-11] MEDS: UMECLIDINIUM BROMIDE 62.5MCG/BLISTER 7 PUFFS/INHALER INH SCH (08:02)
[2022-04-11] MEDS: DICLOFENAC SOD 1% GEL 100 GM TUBE EXT SCH ×3 (08:02→20:38)
[2022-04-11 08:19] LABS: INR 1.7 (0.9-1.1); Prothrombin Time 17.2 Seconds (9.0-12.0)
[2022-04-11 09:40] LABS: Partial Thromboplastin Ratio 2.6
[2022-04-11 09:52] LABS: Partial Thromboplastin Time 71.8 Seconds (21.0-31.0)
--- NOTE | 2022-04-11 11:19 | Hospitalist Progress Note ---
Date of Service April 11, 2022 Assessment & Plan (1) Bacteremia: (2) Subtherapeutic international normalized ratio (INR): (3) Hyponatremia: (4) Anemia: (5) Left lumbar radiculopathy: Plan This is a 66 yr old M who has significant past medical history of COPD, interstitial lung disease, HTN, HLD, history of DVT, HENOK on CPAP, history of carotid artery dissection, thrombophilia, long-term anticoagulation with Coumadin, history of bovine aortic valve replacement with aortic root repair in 2014 at [facility], history of IVC filter placement who presents to ED at the referral of PCP secondary to positive blood cultures along with fever and chills off and on x2 months. Strep anginosus Bacteremia with bioprosthetic AV endocarditis - Blood clx 04/01 with strep anginosus in / bottles, blood clx 04/04 negative - WARREN 04/02 demonstrated 0.5cm x 0.5cm vegetation on aortic valve annulus - PICC placed 04/07 - continue Ceftriaxone - Formal ID evaluation was scheduled for 04/08 but could not be completed due to technical login issues- I discussed with Dr Fernandes 04/08 and 04/[address] surgery evaluation given his prosthetic valve endocarditis. Initially plan was for inpatient transfer to [facility] for CT surgery evaluation. However, patient was very reluctant, kirstin with his prior complex surgery. Dr Woodall spoke with cardiothoracic surgeon 04/09 as well as to patient and daughter and it was decided that he would go home with IV antibiotics for at least 4-6 weeks with close OP cardio follow up with repeat WARREN in 2-3 weeks, given his complex surgical history, high risk for surgery as well as no high risk features of IE. Per Dr Woodall- " Had long discussion with patient and daughter. Complex history with prior bioprosthetic aortic valve replacement and aortic repair with postoperative complications of carotid dissection TIA in 2014. 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 Organism Streptococcus with small vegetation but no valve degeneration or dehiscence. No perivalvular abscess. No conduction abnormalities. No thromboembolic phenomena or high risk features. Discussed guidelines for management of prosthetic valve endocarditis which primarily recommend prosthesis removal. Obviously surgical reintervention at increased risk in this patient and patient fully aware and reluctant to consider repeat surgery. Trial of medical therapy appears reasonable with patient and daughter fully aware of strong possibility of persistent infection despite favorable features present. Decision made with shared decision making with patient and daughter. Will treat with IV antibiotics with follow-up transesophageal echocardiogram 2 to 3 weeks, serial EKGs and close clinical follow-up through cardiology. Hx of Bovine AVR with aortic root repair in 2014 at [facility] HTN HLD continue metoprolol Continue to hold losartan/hctz given low normal BP. Resume as indicated. continue statin HX of DVT/PE; Presence of IVC filter - continue heparin drip until INR therapeutic, currently 1.7.continue coumadin Anemia Hb relatively stable at 10.5 Outpatient anemia panel revealed iron 35, transferrin saturation 14, ferritin 720, B12 379, folic acid 18.4 Possibly in setting of acute illness given prolonged state and adequate iron stores No signs or symptoms of bleeding, will monitor closely Hyponatremia-resolved. HCTZ on hold. HENOK of CPAP-CPAP at COPD/ILD- continue home inhalers; no acute exacerbation Alcohol abuse-no S/S withdrawal. Recommend cessation. DVT ppx: heparin drip, coumadin Dispo: Stable for discharge home. Pending home IV antibiotic set up- Script provided to CM. PICC line in place. Admission and Anticipated Discharge Date Admission Date: April 01, 2022 Subjective Neck pain continues to get better, now able to turn his head around. No new issues. Awaiting home antibiotic set up so he can go home. If no success with home antibiotics by tomorrow, he would rather come somewhere for daily IV antibiotics rather than continue to wait here. Physical Exam Physical Exam: General: Sitting comfortably in bed, not in distress, on room air HEENT: EOMI, HEMANTH, MMM. Chest: Clear breath sounds bilaterally, no wheezes or crackles CVS: Regular rate and rhythm, normal heart sounds Abdomen: Soft, non tender, not distended, normal bowel sounds Neuro: Awake, alert, oriented, conversing well, non focal Extremities: No cyanosis, clubbing or edema Results & Data Results & Data ([facility]) Vital Signs (Past 12 Hours) Vital Signs Temp Pulse Resp BP Pulse Ox O2 Del Method 04/11/22 06:14 36.4 C L 61 17 115/59 L 97 Room Air Medications Administered Current Inpatient Medications Acetaminophen (Acetaminophen 325 Mg Tab) 650 mg PO Q4H PRN PRN Reason: Pain or Fever Stop: 05/01/22 15:30 Last Admin: 04/10/22 23:24 Dose: 650 mg Al Hydrox/Mg Hydrox/Simethicone (Aluminum/Magnesium Susp 30 Ml Udc) 15 ml PO Q4H PRN PRN Reason: Dyspepsia Stop: 05/01/22 15:30 Albuterol (Albuterol Hfa 8 Gm Inhaler) 2 puffs INH Q4H PRN PRN Reason: Shortness Of Breath Stop: 05/01/22 15:30 Atorvastatin Calcium (Atorvastatin 40 Mg Tab) 80 mg PO HS [facility] Stop: 05/01/22 20:59 Last Admin: 04/10/22 20:26 Dose: 80 mg Baclofen (Baclofen 10 Mg Tab) 10 mg PO TID PRN PRN Reason: neck spasm Stop: 05/09/22 20:59 Last Admin: 04/09/22 15:47 Dose: 10 mg Diclofenac Sodium (Diclofenac Sod 1% Gel 100 Gm Tube) 2 gm EXT TID MONALISA; Protocol Stop: 05/08/22 13:59 Last Admin: 04/11/22 08:02 Dose: 2 gm Fenofibrate (Fenofibrate Nanocrystallized 48 Mg Tablet) 48 mg PO DAILY [facility] Stop: 05/07/22 08:59 Last Admin: 04/11/22 07:59 Dose: 48 mg Gabapentin (Gabapentin 100 Mg Cap) 100 mg PO TID [facility] Stop: 05/09/22 08:59 Last Admin: 04/11/22 08:00 Dose: 100 mg Heparin Sodium (Beef Lung) (Heparin 10 Unit/Ml 5 Ml Flush) 5 ml FLUSH PRN PRN PRN Reason: Flush Stop: 05/10/22 10:46 Last Admin: 04/10/22 23:22 Dose: 5 ml Ceftriaxone Sodium 2,000 mg/ (Dextrose) 70 mls @ 100 mls/hr IV Q24H [facility]AL[facility]; Protocol Stop: 04/15/22 11:59 Last Infusion: 04/10/22 13:30 Dose: Infused Heparin Sodium/Dextrose (Heparin Sodium/Dextrose) 25,000 units in 500 mls @ 22 mls/hr IV .[id number] [facility]; Protocol Stop: 05/09/22 20:32 Last Titration: 04/11/22 09:55 Dose: 1,100 units/hr, 22 mls/hr Lidocaine (Lidocaine 5% 1 Patch) 1 patch TD QAM [facility] Stop: 05/09/22 15:44 Last Admin: 04/11/22 08:00 Dose: 1 patch Lorazepam (Lorazepam 1 Mg Tab) 1 - 3 mg PO UD PRN; Protocol PRN Reason: EtoH Withdrawal AWSS 6-10+ Stop: 05/01/22 15:30 Magnesium Hydroxide (Magnesium Hydroxide Susp 30 Ml Udc) 30 ml PO Q12H PRN PRN Reason: Constipation Stop: 05/01/22 15:30 Metoprolol Tartrate (Metoprolol Tartrate 50 Mg Tab) 50 mg PO BID [facility] Stop: 05/01/22 20:59 Last Admin: 04/11/22 08:00 Dose: 50 mg Miscellaneous (Remove Lidoderm Patch) 1 each N/A DAILY@2100 [facility] Stop: 05/09/22 20:59 Last Admin: 04/10/22 20:26 Dose: 1 each Ondansetron HCl (Ondansetron Inj 2 Mg/Ml 2 Ml Vial) 4 mg IV Q6H PRN PRN Reason: Nausea Stop: 05/01/22 15:30 Polyethylene Glycol (Polyethylene (Miralax) 17 Gm Pack) 17 gm PO DAILY PRN PRN Reason: Constipation Stop: 05/01/22 15:30 Umeclidinium [place] (Umeclidinium [place] 62.5mcg/Blister 7 Puffs/Inhaler) 1 puffs INH QAM [facility]; Protocol Stop: 05/02/22 08:59 Last Admin: 04/11/22 08:02 Dose: 1 puffs Warfarin Sodium (Warfarin Sod 5 Mg Tab) 5 mg PO DAILY@1600 [facility] Stop: 05/10/22 15:59 Last Admin: 04/10/22 15:56 Dose: 5 mg (1) Anemia Anemia type: unspecified type Qualified Code(s): D64.9 - Anemia, unspecified
[2022-04-11] MEDS: cefTRIAXone SODIUM 2,000 MG in DEXTROSE 5% 50 ML IV SCH (13:04)
[2022-04-11] MEDS: HEPARIN SODIUM/DEXTROSE 25,000 UNITS/500 ML BAG IV SCH (13:27)
[2022-04-11 16:32] LABS: Partial Thromboplastin Ratio 2.2
[2022-04-11 16:36] LABS: Partial Thromboplastin Time 61.3 Seconds (21.0-31.0)
[2022-04-11] MEDS: WARFARIN SOD 5 MG TAB PO SCH (16:55)
[2022-04-11] MEDS: ACETAMINOPHEN 325 MG TAB PO PRN (20:37)
[2022-04-11] MEDS: ATORVASTATIN 40 MG TAB PO SCH (20:38)
[2022-04-12] MEDS: ACETAMINOPHEN 325 MG TAB PO PRN ×2 (04:14→16:34)
[2022-04-12] MEDS ORDERED: guaiFENesin/CODEINE 100MG/10MG 5ML UDC PO PRN (04:38)
[2022-04-12] MEDS ORDERED: HEPARIN SOD (PORCINE) 1000 UNIT/ML IV ONE (06:28)
[2022-04-12 07:48] LABS: Partial Thromboplastin Ratio 2.2
[2022-04-12 08:04] LABS: Partial Thromboplastin Time 61.2 Seconds (21.0-31.0)
[2022-04-12] MEDS: FENOFIBRATE NANOCRYSTALLIZED 48 MG TABLET PO SCH (08:48)
[2022-04-12] MEDS: GABAPENTIN 100 MG CAP PO SCH ×3 (08:48→19:38)
[2022-04-12] MEDS: METOPROLOL TARTRATE 50 MG TAB PO SCH ×2 (08:48→19:38)
[2022-04-12] MEDS: LIDOCAINE 5% 1 PATCH TD SCH (08:49)
[2022-04-12] MEDS: DICLOFENAC SOD 1% GEL 100 GM TUBE EXT SCH ×4 (08:49→19:38)
[2022-04-12] MEDS: UMECLIDINIUM BROMIDE 62.5MCG/BLISTER 7 PUFFS/INHALER INH SCH (08:51)
[2022-04-12] MEDS: cefTRIAXone SODIUM 2,000 MG in DEXTROSE 5% 50 ML IV SCH (11:48)
[2022-04-12] MEDS: HEPARIN SODIUM/DEXTROSE 25,000 UNITS/500 ML BAG IV SCH (12:33)
[2022-04-12] MEDS: WARFARIN SOD 5 MG TAB PO SCH (16:30)
--- NOTE | 2022-04-12 18:17 | Hospitalist Progress Note ---
Date of Service April 12, 2022 Assessment & Plan (1) Bacteremia: (2) Subtherapeutic international normalized ratio (INR): (3) Hyponatremia: (4) Anemia: (5) Left lumbar radiculopathy: Plan This is a 66 yr old M who has significant past medical history of COPD, interstitial lung disease, HTN, HLD, history of DVT, HENOK on CPAP, history of carotid artery dissection, thrombophilia, long-term anticoagulation with Coumadin, history of bovine aortic valve replacement with aortic root repair in 2014 at [facility], history of IVC filter placement who presents to ED at the referral of PCP secondary to positive blood cultures along with fever and chills off and on x2 months. COVID 19 infection - exposed to but asymptomatic and was on isolation and tested negative x2 and was then taken off of isolation. - However, started having fever last night and continues to have fever, now covid positive. No shortness of breath or hypoxia- no covid specific treatment required. Treat symptomatically. - Seen by ID today- recommendations noted- will follow blood cultures and monitor fever curve. If clx positive, will reach out to ID and cardio for further management. Strep anginosus Bacteremia with bioprosthetic AV endocarditis - Blood clx 04/01 with strep anginosus in 4/4 bottles, blood clx 04/04 negative - WARREN 04/02 demonstrated 0.5cm x 0.5cm vegetation on aortic valve annulus - PICC placed 04/07 - continue Ceftriaxone D8 - Formal ID evaluation was scheduled for 04/08 but could not be completed due to technical login issues- I discussed with Dr Fernandes 04/08 and 04/[address] surgery evaluation given his prosthetic valve endocarditis. Initially plan was for inpatient transfer to [facility] for CT surgery evaluation. However, patient was very reluctant, kirstin with his prior complex surgery. Dr Woodall spoke with cardiothoracic surgeon 04/09 as well as to patient and daughter and it was decided that he would go home with IV antibiotics for at least 4-6 weeks with close OP cardio follow up with repeat WARREN in 2-3 weeks, given his complex surgical history, high risk for surgery as well as no high risk features of IE. Per Dr Woodall- " Had long discussion with patient and daughter. Complex history with prior bioprosthetic aortic valve replacement and aortic repair with postoperative complications of carotid dissection TIA in 2015. 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 Organism Streptococcus with small vegetation but no valve degeneration or dehiscence. No perivalvular abscess. No conduction abnormalities. No thromboembolic phenomena or high risk features. Discussed guidelines for management of prosthetic valve endocarditis which primarily recommend prosthesis removal. Obviously surgical reintervention at increased risk in this patient and patient fully aware and reluctant to consider repeat surgery. Trial of medical therapy appears reasonable with patient and daughter fully aware of strong possibility of persistent infection despite favorable features present. Decision made with shared decision making with patient and daughter. Will treat with IV antibiotics with follow-up transesophageal echocardiogram 2 to 3 weeks, serial EKGs and close clinical follow-up through cardiology. Hx of Bovine AVR with aortic root repair in 2014 at [facility] HTN HLD continue metoprolol Continue to hold losartan/hctz given low normal BP. Resume as indicated. continue statin HX of DVT/PE; Presence of IVC filter - continue heparin drip for now, if INR still therapeutic tomorrow, dc heparin drip. currently INR 2.continue coumadin Anemia Hb relatively stable at 10.5 Outpatient anemia panel revealed iron 35, transferrin saturation 14, ferritin 720, B12 379, folic acid 18.4 Possibly in setting of acute illness given prolonged state and adequate iron stores No signs or symptoms of bleeding, will monitor closely Hyponatremia-resolved. HCTZ on hold. HENOK of CPAP-CPAP at COPD/ILD- continue home inhalers; no acute exacerbation Alcohol abuse-no S/S withdrawal. Recommend cessation. DVT ppx: heparin drip, coumadin Dispo: Now covid positive with fever. Repeat blood clx in progress. Admission and Anticipated Discharge Date Admission Date: April 01, 2022 Subjective He has been having fever since last night. Has some throat discomfort. Neck pain continues to improve. Wondering what the discharge plan would look like now. Wanted me to reach out to cardio and ID with updated results. No other issues. Physical Exam Physical Exam: General: Sitting comfortably in bed, not in distress, on room air HEENT: EOMI, HEMANTH, MMM. Chest: Clear breath sounds bilaterally, no wheezes or crackles CVS: Regular rate and rhythm, normal heart sounds Abdomen: Soft, non tender, not distended, normal bowel sounds Neuro: Awake, alert, oriented, conversing well, non focal Extremities: No cyanosis, clubbing or edema Results & Data Results & Data ([facility]) Vital Signs (Past 12 Hours) Vital Signs Temp Pulse Resp BP BP Pulse Ox O2 Del Method 04/12/22 17:54 38.6 C H 04/12/22 16:33 39.4 C H 04/12/22 14:08 39.4 C H 97 H 16 110/59 L 99 Room Air 04/12/22 07:29 37.4 C 04/12/22 07:10 37.7 C H 87 16 103/61 98 Room Air Medications Administered Current Inpatient Medications Acetaminophen (Acetaminophen 325 Mg Tab) 650 mg PO Q4H PRN PRN Reason: Pain or Fever Stop: 05/01/22 15:30 Last Admin: 04/12/22 16:34 Dose: 650 mg Al Hydrox/Mg Hydrox/Simethicone (Aluminum/Magnesium Susp 30 Ml Udc) 15 ml PO Q4H PRN PRN Reason: Dyspepsia Stop: 05/01/22 15:30 Albuterol (Albuterol Hfa 8 Gm Inhaler) 2 puffs INH Q4H PRN PRN Reason: Shortness Of Breath Stop: 05/01/22 15:30 Atorvastatin Calcium (Atorvastatin 40 Mg Tab) 80 mg PO HS [facility] Stop: 05/01/22 20:59 Last Admin: 04/11/22 20:38 Dose: 80 mg Baclofen (Baclofen 10 Mg Tab) 10 mg PO TID PRN PRN Reason: neck spasm Stop: 05/09/22 20:59 Last Admin: 04/09/22 15:47 Dose: 10 mg Diclofenac Sodium (Diclofenac Sod 1% Gel 100 Gm Tube) 2 gm EXT TID [facility]; Protocol Stop: 05/08/22 13:59 Last Admin: 04/12/22 13:27 Dose: Not Given Fenofibrate (Fenofibrate Nanocrystallized 48 Mg Tablet) 48 mg PO DAILY [facility] Stop: 05/07/22 08:59 Last Admin: 04/12/22 08:48 Dose: 48 mg Gabapentin (Gabapentin 100 Mg Cap) 100 mg PO TID [facility] Stop: 05/09/22 08:59 Last Admin: 04/12/22 13:21 Dose: 100 mg Guaifenesin/Codeine Phosphate (Guaifenesin/Codeine 100mg/10mg 5ml Udc) 5 ml PO Q6H PRN PRN Reason: Cough Stop: 05/12/22 04:37 Last Admin: 04/12/22 04:45 Dose: 5 ml Heparin Sodium (Beef Lung) (Heparin 10 Unit/Ml 5 Ml Flush) 5 ml FLUSH PRN PRN PRN Reason: Flush Stop: 05/10/22 10:46 Last Admin: 04/12/22 05:18 Dose: 5 ml Ceftriaxone Sodium 2,000 mg/ (Dextrose) 70 mls @ 100 mls/hr IV Q24H [facility]; Protocol Stop: 04/15/22 11:59 Last Infusion: 04/12/22 12:31 Dose: Infused Heparin Sodium/Dextrose (Heparin Sodium/Dextrose) 25,000 units in 500 mls @ 22 mls/hr IV .[id number] [facility]; Protocol Stop: 05/09/22 20:32 Last Admin: 04/12/22 12:33 Dose: 1,100 units/hr, 22 mls/hr Lidocaine (Lidocaine 5% 1 Patch) 1 patch TD QAM [facility] Stop: 05/09/22 15:44 Last Admin: 04/12/22 08:49 Dose: 1 patch Lorazepam (Lorazepam 1 Mg Tab) 1 - 3 mg PO UD PRN; Protocol PRN Reason: EtoH Withdrawal AWSS 6-10+ Stop: 05/01/22 15:30 Magnesium Hydroxide (Magnesium Hydroxide Susp 30 Ml Udc) 30 ml PO Q12H PRN PRN Reason: Constipation Stop: 05/01/22 15:30 Metoprolol Tartrate (Metoprolol Tartrate 50 Mg Tab) 50 mg PO BID [facility] Stop: 05/01/22 20:59 Last Admin: 04/12/22 08:48 Dose: 50 mg Miscellaneous (Remove Lidoderm Patch) 1 each N/A DAILY@2100 [facility] Stop: 05/09/22 20:59 Last Admin: 04/11/22 20:39 Dose: 1 each Ondansetron HCl (Ondansetron Inj 2 Mg/Ml 2 Ml Vial) 4 mg IV Q6H PRN PRN Reason: Nausea Stop: 05/01/22 15:30 Polyethylene Glycol (Polyethylene (Miralax) 17 Gm Pack) 17 gm PO DAILY PRN PRN Reason: Constipation Stop: 05/01/22 15:30 Umeclidinium [place] (Umeclidinium [place] 62.5mcg/Blister 7 Puffs/Inhaler) 1 puffs INH QAM [facility]; Protocol Stop: 05/02/22 08:59 Last Admin: 04/12/22 08:51 Dose: 1 puffs Warfarin Sodium (Warfarin Sod 5 Mg Tab) 5 mg PO DAILY@1600 [facility] Stop: 05/10/22 15:59 Last Admin: 04/12/22 16:30 Dose: 5 mg (1) Anemia Anemia type: unspecified type Qualified Code(s): D64.9 - Anemia, unspecified
[2022-04-12] MEDS: ATORVASTATIN 40 MG TAB PO SCH (19:38)
[2022-04-13] MEDS: METOPROLOL TARTRATE 50 MG TAB PO SCH ×2 (08:17→20:39)
[2022-04-13] MEDS: UMECLIDINIUM BROMIDE 62.5MCG/BLISTER 7 PUFFS/INHALER INH SCH (08:18)
[2022-04-13] MEDS: FENOFIBRATE NANOCRYSTALLIZED 48 MG TABLET PO SCH (08:18)
[2022-04-13] MEDS: GABAPENTIN 100 MG CAP PO SCH ×3 (08:19→20:38)
[2022-04-13] MEDS: LIDOCAINE 5% 1 PATCH TD SCH (08:19)
[2022-04-13] MEDS: DICLOFENAC SOD 1% GEL 100 GM TUBE EXT SCH ×3 (08:20→21:27)
[2022-04-13 09:27] LABS: Hematocrit (blood only) 30.5 % (40.1-51.0); Hemoglobin 10.4 g/dl (14.0-18.0); Mean Corpuscular Hemoglobin 31.8 pg (25.0-34.0); Mean Corpuscular Hgb Conc 34.1 g/dL (32.0-36.0); Mean Corpuscular Volume 93.3 fL (80.0-100.0); Mean Platelet Volume 10.3 fL (9.4-12.4); Platelet Count 317 K/uL (130-400); RDW Coefficient of Variation 12.7 % (11.5-14.5); RDW Standard Deviation 43.2 fL (36.4-46.3); Red Blood Count 3.27 M/uL (4.63-6.08); White Blood Count 6.69 K/ul (4.8-10.8)
[2022-04-13 09:53] LABS: BUN Creatinine Ratio 10.8 (10-20); C Reactive Protein 5.37 mg/dl (0-0.5); Calcium 9.4 mg/dl (8.5-10.1); Creatinine Clr Calc Pharmacy 62.8 ml/min; Est GFR (African American) 71.6 ml/min; Est GFR (Non-African American) 61.8 ml/min; INR 1.8 (0.9-1.1); Partial Thromboplastin Ratio > 5.1; Potassium 3.9 mmol/L (3.5-5.1); Prothrombin Time 18.8 Seconds (9.0-12.0)
[2022-04-13 09:58] LABS: Partial Thromboplastin Time > 139.0 Seconds (21.0-31.0)
[2022-04-13] MEDS: cefTRIAXone SODIUM 2,000 MG in DEXTROSE 5% 50 ML IV SCH (12:43)
[2022-04-13 12:53] LABS: Partial Thromboplastin Ratio 3.1
[2022-04-13 13:00] LABS: Partial Thromboplastin Time 84.1 Seconds (21.0-31.0)
[2022-04-13] MEDS: HEPARIN SODIUM/DEXTROSE 25,000 UNITS/500 ML BAG IV SCH ×3 (13:08→18:24)
--- NOTE | 2022-04-13 17:28 | Hospitalist Progress Note ---
Date of Service April 13, 2022 Assessment & Plan (1) Bacteremia: (2) Subtherapeutic international normalized ratio (INR): (3) Hyponatremia: (4) Anemia: (5) Left lumbar radiculopathy: Plan This is a 66 yr old M who has significant past medical history of COPD, interstitial lung disease, HTN, HLD, history of DVT, HENOK on CPAP, history of carotid artery dissection, thrombophilia, long-term anticoagulation with Coumadin, history of bovine aortic valve replacement with aortic root repair in 2014 at [facility], history of IVC filter placement who presents to ED at the referral of PCP secondary to positive blood cultures along with fever and chills off and on x2 months. COVID 19 infection - exposed to but asymptomatic and was on isolation and tested negative x2 and was then taken off of isolation. - However, started having fever 2 nights back and continues to have fever, now covid positive. No shortness of breath or hypoxia- no covid specific treatment required. Treat symptomatically. - Seen by ID 04/12- recommendations noted- Covid positive but blood culture negative. If clx positive, will reach out to ID and cardio for further management. Strep anginosus Bacteremia with bioprosthetic AV endocarditis - Blood clx 04/01 with strep anginosus in 4/4 bottles, blood clx 04/04 negative - WARREN 04/02 demonstrated 0.5cm x 0.5cm vegetation on aortic valve annulus - PICC placed 04/07 - continue Ceftriaxone - Formal ID evaluation was scheduled for 04/08 but could not be completed due to technical login issues- I discussed with Dr Fernandes 04/08 and 04/[address] surgery evaluation given his prosthetic valve endocarditis. Initially plan was for inpatient transfer to [facility] for CT surgery evaluation. However, patient was very reluctant, kirstin with his prior complex surgery. Dr Woodall spoke with cardiothoracic surgeon 04/09 as well as to patient and daughter and it was decided that he would go home with IV antibiotics for at least 4-6 weeks with close OP cardio follow up with repeat WARREN in 2-3 weeks, given his complex surgical history, high risk for surgery as well as no high risk features of IE. Per Dr Woodall- " Had long discussion with patient and daughter. Complex history with prior bioprosthetic aortic valve replacement and aortic repair with postoperative complications of carotid dissection TIA in 2015. 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 Organism Streptococcus with small vegetation but no valve degeneration or dehiscence. No perivalvular abscess. No conduction abnormalities. No thromboembolic phenomena or high risk features. Discussed guidelines for management of prosthetic valve endocarditis which primarily recommend prosthesis removal. Obviously surgical reintervention at increased risk in this patient and patient fully aware and reluctant to consider repeat surgery. Trial of medical therapy appears reasonable with patient and daughter fully aware of strong possibility of persistent infection despite favorable features present. Decision made with shared decision making with patient and daughter. Will treat with IV antibiotics with follow-up transesophageal echocardiogram 2 to 3 weeks, serial EKGs and close clinical follow-up through cardiology. Hx of Bovine AVR with aortic root repair in 2014 at [facility] HTN HLD continue metoprolol Continue to hold losartan/hctz given low normal BP. Resume as indicated. continue statin HX of DVT/PE; Presence of IVC filter - continue heparin drip for now until INR therapeutic, currently INR 1.8.continue coumadin. recheck in am Anemia Hb relatively stable at 10.5 Outpatient anemia panel revealed iron 35, transferrin saturation 14, ferritin 720, B12 379, folic acid 18.4 Possibly in setting of acute illness given prolonged state and adequate iron stores No signs or symptoms of bleeding, will monitor closely Hyponatremia- resolved but now sodium down to 129,will recheck in am, HCTZ remains on hold. HENOK of CPAP-CPAP at COPD/ILD- continue home inhalers; no acute exacerbation Alcohol abuse-no S/S withdrawal. Recommend cessation. DVT ppx: heparin drip, coumadin Dispo: Now covid positive with fever. Will need IV ABx at discharge. Awaiting home ABx set up. PICC line in place. Admission and Anticipated Discharge Date Admission Date: April 01, 2022 Subjective Feels better today. Fever not as high. Neck pain continues to improve. No other issues. Asking about blood culture results. Discussed about iv fluids with his fever but he states he has been drinking lots of fluids. Physical Exam Physical Exam: General: Lying comfortably in bed, not in distress, on room air HEENT: EOMI, HEMANTH, MMM. Chest: Clear breath sounds bilaterally, no wheezes or crackles CVS: Regular rate and rhythm, normal heart sounds Abdomen: Soft, non tender, not distended, normal bowel sounds Neuro: Awake, alert, oriented, conversing well, non focal Extremities: No cyanosis, clubbing or edema Results & Data Results & Data ([facility]) Vital Signs (Past 12 Hours) Vital Signs Temp Pulse Resp BP Pulse Ox O2 Del Method 04/13/22 14:20 37.3 C 82 16 110/71 97 Room Air 04/13/22 08:00 Room Air 04/13/22 08:16 37.6 C H 82 16 96/66 L 97 Room Air (1) Anemia Anemia type: unspecified type Qualified Code(s): D64.9 - Anemia, unspecified
[2022-04-13] MEDS: WARFARIN SOD 5 MG TAB PO SCH (17:30)
[2022-04-13 19:57] LABS: Partial Thromboplastin Ratio > 5.1
[2022-04-13 20:13] LABS: Partial Thromboplastin Time > 139.0 Seconds (21.0-31.0)
[2022-04-13] MEDS: ATORVASTATIN 40 MG TAB PO SCH (20:39)
[2022-04-13] MEDS: ACETAMINOPHEN 325 MG TAB PO PRN (20:57)
[2022-04-13 21:57] LABS: Partial Thromboplastin Ratio 2.6
[2022-04-13 21:59] LABS: Partial Thromboplastin Time 72.3 Seconds (21.0-31.0)
[2022-04-14] MEDS ORDERED: SODIUM CHLORIDE 0.9% 500 ML IV ONE (02:29)
[2022-04-14 05:43] LABS: Hematocrit (blood only) 31.6 % (40.1-51.0); Hemoglobin 10.6 g/dl (14.0-18.0); Mean Corpuscular Hgb Conc 33.5 g/dL (32.0-36.0); Mean Corpuscular Volume 92.4 fL (80.0-100.0); Mean Platelet Volume 10.4 fL (9.4-12.4); Platelet Count 312 K/uL (130-400); RDW Coefficient of Variation 12.7 % (11.5-14.5); Red Blood Count 3.42 M/uL (4.63-6.08); White Blood Count 5.17 K/ul (4.8-10.8)
[2022-04-14 06:13] LABS: INR 1.7 (0.9-1.1); Partial Thromboplastin Ratio 4.5; Prothrombin Time 17.2 Seconds (9.0-12.0)
[2022-04-14 06:14] LABS: BUN Creatinine Ratio 11.4 (10-20); C Reactive Protein 3.58 mg/dl (0-0.5); Calcium 9.3 mg/dl (8.5-10.1); Creatinine Clr Calc Pharmacy 66.1 ml/min; Est GFR (African American) 76.2 ml/min; Est GFR (Non-African American) 65.7 ml/min; Magnesium 1.8 mg/dl (1.7-2.4); Potassium 4.2 mmol/L (3.5-5.1)
[2022-04-14] MEDS ORDERED: SODIUM CHLORIDE 0.9% 1000ML 1,000 ML IV ONE (06:22)
[2022-04-14 07:16] LABS: Partial Thromboplastin Time 124.4 Seconds (21.0-31.0)
[2022-04-14] MEDS: GABAPENTIN 100 MG CAP PO SCH ×2 (09:41→17:09)
[2022-04-14] MEDS: FENOFIBRATE NANOCRYSTALLIZED 48 MG TABLET PO SCH (09:41)
[2022-04-14] MEDS: METOPROLOL TARTRATE 50 MG TAB PO SCH (09:42)
[2022-04-14] MEDS: LIDOCAINE 5% 1 PATCH TD SCH (09:42)
[2022-04-14] MEDS: UMECLIDINIUM BROMIDE 62.5MCG/BLISTER 7 PUFFS/INHALER INH SCH (09:42)
[2022-04-14] MEDS: DICLOFENAC SOD 1% GEL 100 GM TUBE EXT SCH ×2 (09:42→17:09)
[2022-04-14] MEDS: cefTRIAXone SODIUM 2,000 MG in DEXTROSE 5% 50 ML IV SCH (12:19)
[2022-04-14 14:53] LABS: Partial Thromboplastin Ratio 2.7
[2022-04-14 15:08] LABS: Partial Thromboplastin Time 74.3 Seconds (21.0-31.0)
--- NOTE | 2022-04-14 16:17 | Hospitalist Progress Note ---
Date of Service April 14, 2022 Assessment & Plan (1) Bacteremia: (2) Subtherapeutic international normalized ratio (INR): (3) Hyponatremia: (4) Anemia: (5) Left lumbar radiculopathy: Plan Sreedhar is a 66 yr old M who has significant past medical history of COPD, interstitial lung disease, HTN, HLD, history of DVT, HENOK on CPAP, history of carotid artery dissection, thrombophilia, long-term anticoagulation with Coumadin, history of bovine aortic valve replacement with aortic root repair in 2014 at [facility], history of IVC filter placement who presents to ED at the referral of PCP secondary to positive blood cultures along with fever and chills off and on x2 months. COVID 19 infection - exposed to but asymptomatic and was on isolation and tested negative x2 and was then taken off of isolation. - However, started having fever 2 nights back and continues to have fever, now covid positive. No shortness of breath or hypoxia- no covid specific treatment required. Treat symptomatically. - Seen by ID 04/12- recommendations noted- Covid positive but blood culture negative. If clx positive, will reach out to ID and cardio for further management. -Remains totally asymptomatic secondary to COVID infection no recurrence of the fever -He will be coming out of isolation on 04/22/2022 and [facility] Strep anginosus Bacteremia with bioprosthetic AV endocarditis - Blood clx 04/01 with strep anginosus in 4/4 bottles, blood clx 04/04 negative - WARREN 04/02 demonstrated 0.5cm x 0.5cm vegetation on aortic valve annulus - PICC placed 04/07 - continue Ceftriaxone - Formal ID evaluation was scheduled for 04/08 but could not be completed due to technical login issues- I discussed with Dr Fernandes 04/08 and 04/[address] surgery evaluation given his prosthetic valve endocarditis. Initially plan was for inpatient transfer to [facility] for CT surgery evaluation. However, patient was very reluctant, kirstin with his prior complex surgery. Dr Woodall spoke with cardiothoracic surgeon 04/09 as well as to patient and daughter and it was decided that he would go home with IV antibiotics for at least 4-6 weeks with close OP cardio follow up with repeat WARREN in 2-3 weeks, given his complex surgical history, high risk for surgery as well as no high risk features of IE. Per Dr Woodall- " Had long discussion with patient and daughter. Complex history with prior bioprosthetic aortic valve replacement and aortic repair with postoperative complications of carotid dissection TIA in 2014. 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 Organism Streptococcus with small vegetation but no valve degeneration or dehiscence. No perivalvular abscess. No conduction abnormalities. No thromboembolic phenomena or high risk features. Discussed guidelines for management of prosthetic valve endocarditis which primarily recommend prosthesis removal. Obviously surgical reintervention at increased risk in this patient and patient fully aware and reluctant to consider repeat surgery. Trial of medical therapy appears reasonable with patient and daughter fully aware of strong possibility of persistent infection despite favorable features present. Decision made with shared decision making with patient and daughter. Will treat with IV antibiotics with follow-up transesophageal echocardiogram 2 to 3 weeks, serial EKGs and close clinical follow-up through cardiology. -Will need to continue IV antibiotic until 05/16/2022 -Weekly CBC and CMP -Will need outpatient ID appointment in 2 to 4 weeks Hx of Bovine AVR with aortic root repair in 2014 at [facility] HTN HLD continue metoprolol Continue to hold losartan/hctz given low normal BP. Resume as indicated. continue statin HX of DVT/PE; Presence of IVC filter - continue heparin drip for now until INR therapeutic, currently INR 1.8.continue coumadin. recheck in am -We will need to have regular follow-up in the Coumadin clinic Anemia Hb relatively stable at 10.5 Outpatient anemia panel revealed iron 35, transferrin saturation 14, ferritin 720, B12 379, folic acid 18.4 Possibly in setting of acute illness given prolonged state and adequate iron stores No signs or symptoms of bleeding, will monitor closely Hyponatremia- resolved but now sodium down to 129,will recheck in am, HCTZ remains on hold. HENOK of CPAP-CPAP at HS COPD/ILD- continue home inhalers; no acute exacerbation Alcohol abuse-no S/S withdrawal. Recommend cessation. DVT ppx: heparin drip, coumadin Dispo: Detailed discussion with infectious disease nurse, [facility] facility and case assistant He will be discharged home today and he will continue IV antibiotic at home until 04/21/2022-the risk of taking antibiotic by himself was discussed in detail with him. He understood the risk and wanted to do it by himself with the help of his as long as he will be in isolation for [facility]. From 04/22/2022 he will need to come to [facility] to have antibiotic which will be continued until 05/16/2022 He will need to have CBC and CMP done weekly ID appointment in about 2 to 4 weeks Admission and Anticipated Discharge Date Admission Date: April 01, 2022 Subjective 04/14/2022 The patient was seen and examined in medical floor and in the COVID room in presence of the He does not have any symptoms whatsoever He has been waiting to go home No fever since and no signs of ongoing infection Review of Systems Review of Systems: All systems reviewed and are unremarkable except as noted below Physical Exam Physical Exam: Lying in bed comfortably Constitutional: average body habitus; not ill appearing Eyes: PERRL, conjunctivae normal, anicteric sclerae ENMT: external ear and nose normal, oropharynx normal Neck: trachea midline, no thyromegaly Respiratory: no respiratory distress Auscultation: lungs clear to aus cultation bilaterally Cardiovascular: Rate/Rhythm: regular rate; not tachycardic Heart Sounds: normal S1, normal S2 and + murmur (Mechanical valve sound) Extremities: no edema Gastrointestinal (Abdomen): Inspection/Auscultation: normal bowel sounds; abdomen not distended Percussion/Palpation: abdomen soft; abdomen nontender Musculoskeletal: No acute arthritis in any joint Skin: No rash anywhere Neurologic: Alert, awake and oriented x3. No focal sensory or no motor deficit appreciated Psychiatric: A+Ox3, euthymic affect Lymphatic: no cervical or axillary lymphadenopathy Results & Data Results & Data ([facility]) Vital Signs (Past 12 Hours) Vital Signs Temp Pulse Resp BP Pulse Ox O2 Del Method 04/14/22 08:00 37.0 C 81 18 101/66 98 Room Air Laboratory Results Short CBC 04/14/22 Range/Units 05:18 WBC 5.17 (4.8-10.8) K/ul Hgb 10.6 L (14.0-18.0) g/dl Hct 31.6 L (40.1-51.0) % Plt Count 312 (130-400) K/uL BMP 04/14/22 05:18 Sodium 133 L Potassium 4.2 Chloride 101 Carbon Dioxide 23 BUN 13 Creatinine 1.14 Glucose 93 Calcium 9.3 Medications Administered Current Inpatient Medications Acetaminophen (Acetaminophen 325 Mg Tab) 650 mg PO Q4H PRN PRN Reason: Pain or Fever Stop: 05/01/22 15:30 Last Admin: 04/13/22 20:57 Dose: 650 mg Al Hydrox/Mg Hydrox/Simethicone (Aluminum/Magnesium Susp 30 Ml Udc) 15 ml PO Q4H PRN PRN Reason: Dyspepsia Stop: 05/01/22 15:30 Albuterol (Albuterol Hfa 8 Gm Inhaler) 2 puffs INH Q4H PRN PRN Reason: Shortness Of Breath Stop: 05/01/22 15:30 Atorvastatin Calcium (Atorvastatin 40 Mg Tab) 80 mg PO HS MONALISA Stop: 05/01/22 20:59 Last Admin: 04/13/22 20:39 Dose: 80 mg Baclofen (Baclofen 10 Mg Tab) 10 mg PO TID PRN PRN Reason: neck spasm Stop: 05/09/22 20:59 Last Admin: 04/09/22 15:47 Dose: 10 mg Diclofenac Sodium (Diclofenac Sod 1% Gel 100 Gm Tube) 2 gm EXT TID MONALISA; Protocol Stop: 05/08/22 13:59 Last Admin: 04/14/22 09:42 Dose: Not Given Fenofibrate (Fenofibrate Nanocrystallized 48 Mg Tablet) 48 mg PO DAILY MONALISA Stop: 05/07/22 08:59 Last Admin: 04/14/22 09:41 Dose: 48 mg Gabapentin (Gabapentin 100 Mg Cap) 100 mg PO TID MONALISA Stop: 05/09/22 08:59 Last Admin: 04/14/22 09:41 Dose: 100 mg Guaifenesin/Codeine Phosphate (Guaifenesin/Codeine 100mg/10mg 5ml Udc) 5 ml PO Q6H PRN PRN Reason: Cough Stop: 05/12/22 04:37 Last Admin: 04/12/22 04:45 Dose: 5 ml Heparin Sodium (Beef Lung) (Heparin 10 Unit/Ml 5 Ml Flush) 5 ml FLUSH PRN PRN PRN Reason: Flush Stop: 05/10/22 10:46 Last Admin: 04/12/22 05:18 Dose: 5 ml Ceftriaxone Sodium 2,000 mg/ (Dextrose) 70 mls @ 100 mls/hr IV Q24H MONALISA; Protocol Stop: 04/15/22 11:59 Last Admin: 04/14/22 12:19 Dose: 100 mls/hr Heparin Sodium/Dextrose (Heparin Sodium/Dextrose) 25,000 units in 500 mls @ 13 mls/hr IV .Q24H [facility]; Protocol Stop: 05/09/22 20:32 Last Titration: 04/14/22 15:20 Dose: 650 units/hr, 13 mls/hr Sodium Chloride (Nss 1000ml) 1,000 mls @ 60 mls/hr IV .[id number] ONE Stop: 04/14/22 23:01 Last Admin: 04/14/22 06:47 Dose: 60 mls/hr Lidocaine (Lidocaine 5% 1 Patch) 1 patch TD QAM [facility] Stop: 05/09/22 15:44 Last Admin: 04/14/22 09:42 Dose: Not Given Lorazepam (Lorazepam 1 Mg Tab) 1 - 3 mg PO UD PRN; Protocol PRN Reason: EtoH Withdrawal AWSS 6-10+ Stop: 05/01/22 15:30 Magnesium Hydroxide (Magnesium Hydroxide Susp 30 Ml Udc) 30 ml PO Q12H PRN PRN Reason: Constipation Stop: 05/01/22 15:30 Metoprolol Tartrate (Metoprolol Tartrate 50 Mg Tab) 50 mg PO BID [facility] Stop: 05/01/22 20:59 Last Admin: 04/14/22 09:42 Dose: 50 mg Miscellaneous (Remove Lidoderm Patch) 1 each N/A DAILY@2100 [facility] Stop: 05/09/22 20:59 Last Admin: 04/13/22 20:39 Dose: Not Given Ondansetron HCl (Ondansetron Inj 2 Mg/Ml 2 Ml Vial) 4 mg IV Q6H PRN PRN Reason: Nausea Stop: 05/01/22 15:30 Polyethylene Glycol (Polyethylene (Miralax) 17 Gm Pack) 17 gm PO DAILY PRN PRN Reason: Constipation Stop: 05/01/22 15:30 Umeclidinium [place] (Umeclidinium [place] 62.5mcg/Blister 7 Puffs/Inhaler) 1 puffs INH QAM [facility]; Protocol Stop: 05/02/22 08:59 Last Admin: 04/14/22 09:42 Dose: 1 puffs Warfarin Sodium (Warfarin Sod 5 Mg Tab) 5 mg PO DAILY@1600 [facility] Stop: 05/10/22 15:59 Last Admin: 04/13/22 17:30 Dose: 5 mg (1) Anemia Anemia type: unspecified type Qualified Code(s): D64.9 - Anemia, unspecified
[2022-04-14] MEDS: WARFARIN SOD 5 MG TAB PO SCH (17:20)
--- NOTE | 2022-04-15 08:52 | Discharge Summary ---
Date of Service April 15, 2022 Admission HPI Per Admitting Provider This is a 66 yr old M who has significant past medical history of COPD, interstitial lung disease, HTN, HLD, history of DVT, HENOK on CPAP, history of carotid artery dissection, thrombophilia, long-term anticoagulation with Coumadin, history of bovine aortic valve replacement with aortic root repair in 2015 at [facility], history of IVC filter placement who presents to ED at the referral of PCP secondary to positive blood cultures along with fever and chills off and on x2 months. Over the last 6 weeks to 2 months patient has had intermittent chills and sweats. He has not checked his temperature at home to k now if he had a true fever; however when being seen in clinic multiple times he was found to have low-grade fever around 100. In early February he was treated with a 3-week course of doxycycline due to concern for possible tickborne disease. His Lyme and Anaplasma screen were negative. He did start to feel better after the 3 weeks of doxycycline but as of late his chills and sweats have returned, c omplains of easy fatigability and generalized weakness. He was seen in clinic yesterday due to new onset back pain for the past 3 to 4 days. This back pain started after he was fishing and move the wrong way. Pain is left lower back with radiation down posterior aspect of left leg. After being seen in clinic yesterday and again finding low-grade fever he underwent full lab work-up including blood cultures. Blood cultures returned positive today growing Streptococcus. He was referred to ED Admission Exam Per Admitting Provider Physical Exam: Constitutional: WD/WN, vitals as above, NAD, sitting up in bed, pleasant, conversing easily Head: Normocephalic, Atraumatic Eyes: PERRL, conjunctivae normal, anicteric sclerae ENMT: external ear and nose normal, oropharynx normal Neck: trachea midline, no thyromegaly normal visual inspection Respiratory: normal respiratory effort, lungs clear to auscultation, no wheeze, rales, rhonchi. Normal insp/exp effort, no accessory muscle use Cardiovascular: RRR, 2/6 RONEL noted RUSB, no edema Vessels: no JVD or carotid bruit Chest: normal inspection of chest Abdomen: normal bowel sounds, soft, nontender, no hepatosplenomegaly Musculoskeletal: no cyanosis or clubbing, extremities motor strength 5/5 Skin: no rashes, warm and dry normal turgor Neurologic: PERRL, EOMI, accommodation nl, no face palsy, no dysarthria CN's II-XI intact bilaterally and moves all extremities Psychiatric: A+Ox3, euthymic affect : deferred Principal Diagnosis Prosthetic AV endocarditis with strep bacteremia, COVID-19 virus infection- asymptomatic Discharge Exam Lying in bed comfortably Constitutional average body habitus; not ill appearing Eyes PERRL, conjunctivae normal, anicteric sclerae ENMT external ear and nose normal, oropharynx normal Neck trachea midline, no thyromegaly Respiratory no respiratory distress Auscultation: lungs clear to auscultation bilaterally Cardiovascular Rate/Rhythm: regular rate; not tachycardic Heart Sounds: normal S1, normal S2 and + murmur (Mechanical valve sound) Extremities: no edema Gastrointestinal (Abdomen) Inspection/Auscultation: normal bowel sounds; abdomen not distended Percussion/Palpation: abdomen soft; abdomen nontender Psychiatric A+Ox3, euthymic affect Lymphatic no cervical or axillary lymphadenopathy Discharge Data Allergies Allergy/AdvReac Type Severity Reaction Status Date / Time No Known Allergies Allergy Verified 04/01/22 10:18 Consultations 04/01/22 12:22 ED Decision to Admit Stat 04/01/22 13:12 Consult Cardiology Routine 04/01/22 14:25 Consult Anesthesiology Routine 04/02/22 08:00 Consult Infectious Diseases Routine 04/09/22 11:22 Consult Infectious Diseases Stat Procedures Performed Operation Date: 04/02/22 07:15 Actual Procedures p Echo Transesophageal - Ezra Isaac DO Ordered Studies 04/01/22 09:20 MR lumbar spine wo/w con Stat MR thoracic spine wo/w con Stat Hospital Course (1) Bacteremia: (2) Subtherapeutic international normalized ratio (INR): (3) Hyponatremia: (4) Anemia: (5) Left lumbar radiculopathy: Tim Eli is a 66 yr old M who has significant past medical history of COPD, interstitial lung disease, HTN, HLD, history of DVT, HENOK on CPAP, history of carotid artery dissection, thrombophilia, long-term anticoagulation with Coumadin, history of bovine aortic valve replacement with aortic root repair in 2015 at [facility], history of IVC filter placement who presents to ED at the referral of PCP secondary to positive blood cultures along with fever and chills off and on x2 months. COVID 19 infection - exposed to but asymptomatic and was on isolation and tested negative x2 and was then taken off of isolation. - However, started having fever 2 nights back and continues to have fever, now covid positive. No shortness of breath or hypoxia- no covid specific treatment required. Treat symptomatically. - Seen by ID 04/12- recommendations noted- Covid positive but blood culture negative. If clx positive, will reach out to ID and cardio for further management. -Remains totally asymptomatic secondary to COVID infection no recurrence of the fever -He will be coming out of isolation on 04/22/2022 and [facility] Strep anginosus Bacteremia with bioprosthetic AV endocarditis - Blood clx 04/01 with strep anginosus in 4/ bottles, blood clx 04/04 negative - WARREN 04/02 demonstrated 0.5cm x 0.5cm vegetation on aortic valve annulus - PICC placed 04/07 - continue Ceftriaxone - Formal ID evaluation was scheduled for 04/08 but could not be completed due to technical login issues- I discussed with Dr Fernandes 04/08 and 04/[address] surgery evaluation given his prosthetic valve endocarditis. Initially plan was for inpatient transfer to [facility] for CT surgery evaluation. However, patient was very reluctant, kirstin with his prior complex surgery. Dr Woodall spoke with cardiothoracic surgeon 04/09 as well as to patient and daughter and it was decided that he would go home with IV antibiotics for at least 4-6 weeks with close OP cardio follow up with repeat WARREN in 2-3 weeks, given his complex surgical history, high risk for surgery as well as no high risk features of IE. Per Dr Woodall- " Had long discussion with patient and daughter. Complex history with prior bioprosthetic aortic valve replacement and aortic repair with postoperative complications of carotid dissection TIA in 2014. 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 Organism Streptococcus with small vegetation but no valve degeneration or dehiscence. No perivalvular abscess. No conduction abnormalities. No thromboembolic phenomena or high risk features. Discussed guidelines for management of prosthetic valve endocarditis which primarily recommend prosthesis removal. Obviously surgical reintervention at increased risk in this patient and patient fully aware and reluctant to consider repeat surgery. Trial of medical therapy appears reasonable with patient and daughter fully aware of strong possibility of persistent infection despite favorable features present. Decision made with shared decision making with patient and daughter. Will treat with IV antibiotics with follow-up transesophageal echocardiogram 2 to 3 weeks, serial EKGs and close clinical follow-up through cardiology. -Will need to continue IV antibiotic until 05/16/2022 -Weekly CBC and CMP -Will need outpatient ID appointment in 2 to 4 weeks Hx of Bovine AVR with aortic root repair in 2014 at [facility] HTN HLD continue metoprolol Continue to hold losartan/hctz given low normal BP. Resume as indicated. continue statin HX of DVT/PE; Presence of IVC filter - continue heparin drip for now until INR therapeutic, currently INR 1.8.continue coumadin. recheck in am -We will need to have regular follow-up in the Coumadin clinic Anemia Hb relatively stable at 10.5 Outpatient anemia panel revealed iron 35, transferrin saturation 14, ferritin 720, B12 379, folic acid 18.4 Possibly in setting of acute illness given prolonged state and adequate iron stores No signs or symptoms of bleeding, will monitor closely Hyponatremia- resolved but now sodium down to 129,will recheck in am, HCTZ remains on hold. HENOK of CPAP-CPAP at HS COPD/ILD- continue home inhalers; no acute exacerbation Alcohol abuse-no S/S withdrawal. Recommend cessation. DVT ppx: heparin drip, coumadin Dispo: Detailed discussion with infectious disease nurse, [facility] facility and field nurse case manager He will be discharged home today and he will continue IV antibiotic at home until 04/21/2022-the risk of taking antibiotic by himself was discussed in detail with him. He understood the risk and wanted to do it by himself with the help of his as long as he will be in isolation for COVID. From 04/22/2022 he will need to come to [facility] to have antibiotic which will be continued until 05/16/2022 He will need to have CBC and CMP done weekly ID appointment in about 2 to 4 weeks Total Time Total Time Spent Total Time Spent (In Minutes): 45 minutes Discharge Plan Discharge Items Patient Disposition: Home - Home Health Services Reason For Visit: fever, possible endocarditis Discharge Diagnosis: Prosthetic AV endocarditis with strep bacteremia, COVID-19 virus infection- asymptomatic Condition on Discharge: Good Activity: Resume your previous activity Non-emergency contact: Primary Care Provider Call non-emergency contact if: you have any medication questions Follow-up/Referrals: Raleigh Oconnor [Physician Cow Trimmer] - 04/30/22 1:00 pm (Date & Time 04/30/2022 1:00 PM Provider Raleigh Oconnor PA-C Department Cardiology, [facility] ) Dav Parker DO [Primary Care Provider] - 04/23/22 11:20 am (Date & Time 04/23/2022 11:20 AM Provider Dejan Terrell DO Department Family Practice [facility] ) Diet: Heart Healthy Addtl Attending Provider Instructions: Please take your medications as advised Take precaution and concentrate on administering your antibiotic at home You need to have follow-up with your providers as advised You need to have follow-up with your Coumadin clinic so that the dose is adjusted to maintain the INR Your IV antibiotic will need to be continued until 05/16/2022 and you will need to have weekly CBC and CMP from 04/22/2022 Outpatient infectious disease follow-up of within 2 to 4 weeks timeframe Please take Coumadin 5 mg daily for the next 2 days and have your INR checked on the third day-Tuesday Pending Studies at Discharge: No Stand-Alone Forms: My [facility], Smoking Cessation Medications and DC Order Prescriptions: Continued atorvastatin 80 mg tablet 80 mg PO HS warfarin 2 mg tablet 2 - 4 mg PO HS Rx Instructions: take 1-2 tabs daily as directed metoprolol tartrate 50 mg tablet 50 mg PO BID albuterol sulfate 90 mcg/actuation HFA aerosol inhaler 2 inh INHALATION Q4H PRN (Reason: Shortness Of Breath) losartan-hydrochlorothiazide 50-12.5 mg tablet 1 tab PO QAM Spiriva with HandiHaler 18 mcg capsule, w/inhalation device 1 inh INHALATION QAM fenofibrate 54 mg tablet 54 mg PO QAM Discharge Orders: Discharge Order (Routine); Ordered 04/14/22 Ordered By: Corazon Longo/Other Patient Handouts: ED Heart Disease Education Admission Data Admit Date/Time: 04/01/22 12:41 Attending Provider: Corazon Bishop Admit Provider: Jon Ramirez Primary Care Provider: Dav Parker Other Providers: Jon Ramirez ; Ezra Isaac ; Payal Crowe ; Jannie Jin ; Jacquie Ramirez ; Adriana Conway ; David Mayes ; Bradly Catherine ; Peter Noyola ; Henok Douglass ; Marjan Douglass ; Elías Sanchez ; Chelsea Bautista ; Neymar Martinez ; Jagjit Laguna ; Dariusz Wray ; Merrill Reeder ; Sugar Moreno ; Raleigh Hardwick ; Joyce Mejia ; Eva Hardwick ; Nicho Marshall ; Tricia Moe ; Josr Prado ; Sara Whaley ; Paula Doan ; Micaela Munguia ; Main Deluna ; Chely Mendoza ; Gely Gómez ; Ritika Arvizu ; Loree Walker ; Isaac Walker V ; Stevie Bardales ; Jannie Ruiz ; Gallo Powell ; Kelly eHrman ; Isaac Sood ; Navin Moreno ; Dragan Omalley ; Jadyn Castro ; Kadi Claudio ; Isaac Mitchell ; Hank Benson ; Girish Reeder ; Unique Canchola ; Jonn Cueto ; Jw Davies ; Dante Landry ; Jonn Harp ; David Cardoza Jr ; Isatu Wan ; Mary Grijalva ; Tara Carmichael ; Main Negrete ; Adriana Gonzalez ; Henok Fish. ; Abner Hernandez I. ; Mehnaz Kim S. ; Erick Goldstein ; Martha Mcgraw ; Fernie Mandel I. ; Douglas Fernandes II ; Zonia Peters ; Raleigh Haines ; Surjit Shaw. Other Interventions: Discharge Summary Assessment (RN) Last Done: 04/14/22 17:39
== END 2022-04-14 18:09 | disposition home health service (06) | DRG 314 ==
LOC: ED 08:32 → SUATTDRO 12:41 → EDINP 12:41 → 2S 16:40 → 3E 04-09 23:44 → 3N 04-12 18:44